=== PATIENT | male | born 1950 | race Caucasian/White ===

== ENCOUNTER 2017-06-07 15:53 | Inpatient (IN) | payer MEDICARE, OTHER ==
[~2017-06-07] VITALS: Ht 172.7 cm; Wt 74.3 kg
[2017-06-07 16:00] VITALS: BP 124/66; PULSE 85; RESP 20; TEMP 98; O2SAT 100
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
[2017-06-07 17:59] LABS: AUTOMATED NEUTROPHIL # 8.2 TH/MM3 (1.8-7.7); BASOPHIL # 0.1 TH/MM3 (0-0.2); BASOPHIL % 0.6 % (0.0-2.0); EOSINOPHIL # 0.1 TH/MM3 (0-0.4); EOSINOPHIL % 1.1 % (0.0-4.0); HEMATOCRIT 41.9 % (39.0-51.0); HEMO FLAGS DIFF FINAL; LYMPH % 14.8 % (9.0-44.0); LYMPHOCYTE # 1.6 TH/MM3 (1.0-4.8); MEAN CORPUSCULAR HEMOGLOBIN 30.5 PG (27.0-34.0); MEAN CORPUSCULAR HGB CONC 35.5 % (32.0-36.0); MONO % 8.8 % (0.0-8.0); NEUT % 74.7 % (16.0-70.0); PLATELET COUNT 296 TH/MM3 (150-450); RED BLOOD COUNT 4.88 MIL/MM3 (4.50-5.90); RED CELL DISTRIBUTION WIDTH 13.3 % (11.6-17.2); WHITE BLOOD COUNT 10.9 TH/MM3 (4.0-11.0)
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
[2017-06-07] MEDS ORDERED: CHOL5000 PO (18:55)
[2017-06-07] MEDS ORDERED: ALPR0.5T3 PO (18:55)
[2017-06-07] MEDS ORDERED: QUET1TAB7 PO (18:55)
[2017-06-07] MEDS ORDERED: GALA16CA PO (18:55)
[2017-06-07] MEDS ORDERED: ESCI20TA PO (18:55)
[2017-06-07 20:18] VITALS: BP 130/67; PULSE 80; RESP 18; TEMP 98.4; O2SAT 97
[2017-06-07 21:20] LABS: ANION GAP 9 MEQ/L (5-15)
[2017-06-07 21:23] LABS: ALKALINE PHOSPHATASE 92 U/L (45-117); ALT (GPT) 32 U/L (12-78); AST (GOT) 26 U/L (15-37); BICARBONATE 24.7 MEQ/L (21.0-32.0); BLOOD UREA NITROGEN 13 MG/DL (7-18); CHLORIDE 104 MEQ/L (98-107); GLOMERULAR FILTRATION RATE 72 ML/MIN (>89); POTASSIUM 3.4 MEQ/L (3.5-5.1); SODIUM (NA) 138 MEQ/L (136-145); TOTAL BILIRUBIN ADULT 0.6 MG/DL (0.2-1.0)
[2017-06-07 21:26] LABS: ACETAMINOPHEN LESS THAN 2.0 MCG/ML (10.0-30.0); ALCOHOL LESS THAN 3 MG/DL (0-5)
[2017-06-07 22:02] LABS: BLOOD, URINE TRACE (NEG); COMMENT (UR) CULT NOT INDICATED; CULTURE IF INDICATED CULT NOT INDICATED; GLUCOSE,URINE NEG (NEG); KETONE, URINE NEG (NEG); MUCUS URINE FEW /lpf (OCC); NITRITE,URINE NEG (NEG); PH, URINE 5.5 (5.0-8.5); URINE COLOR YELLOW (YELLW/STRAW)
[2017-06-08] MEDS ORDERED: ACETAMINOPHEN 325 MG TAB PO PRN (01:15)
[2017-06-08] MEDS ORDERED: diphenhydrAMINE HCL 50 MG/ML VIAL - HS PRN IM (01:15)
[2017-06-08] MEDS ORDERED: LORazepam 0.5 MG TAB age > 65 yrs PO PRN (01:15)
[2017-06-08] MEDS ORDERED: diphenhydrAMINE HCL 50 MG/ML VIAL IM PRN (01:15)
[2017-06-08] MEDS ORDERED: LORazepam 2 MG/ML VIAL - age > 65 yrs IM PRN (01:15)
[2017-06-08] MEDS ORDERED: ALUMINUM/MAGNESIUM/SIMETH 30 ML CUP PO PRN (01:15)
[2017-06-08] MEDS ORDERED: BENZTROPINE MESYLATE 2 MG/2 ML VIAL IM PRN (01:15)
[2017-06-08] MEDS ORDERED: diphenhydrAMINE HCL 50 MG CAP - HS PRN PO (01:15)
[2017-06-08] MEDS ORDERED: BENZTROPINE MESYLATE 1 MG TAB PO PRN (01:15)
[2017-06-08] MEDS ORDERED: MAGNESIUM HYDROXIDE SUSP 30 ML CUP PO PRN (01:15)
[2017-06-08] MEDS ORDERED: diphenhydrAMINE HCL 50 MG CAP PO PRN (01:15)
[2017-06-08 02:25] VITALS: BP 134/78; PULSE 74; RESP 18; TEMP 97; O2SAT 97
[2017-06-08] MEDS: GALANTAMINE HYDROBROMIDE 4 MG TAB PO SCH ×2 (09:00→21:14)
[2017-06-08] MEDS ORDERED: QUEtiapine FUMARATE 25 MG TAB PO SCH ×2 (09:00→21:00)
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
[2017-06-08] MEDS ORDERED: GALANTAMINE HYDROBROMIDE 4 MG TAB PO SCH (13:00)
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
[2017-06-08 17:29] VITALS: BP 124/70; PULSE 92; RESP 18; TEMP 98.7; O2SAT 98
[2017-06-08] MEDS ORDERED: POTASSIUM CHLORIDE 20 MEQ CONTROLLED RELEASE TAB PO ONE (18:15)
[2017-06-08 19:03] LABS: FREE T4 0.97 NG/DL (0.76-1.46)
[2017-06-09 05:56] VITALS: BP 136/74; PULSE 18; RESP 18; TEMP 101.6; O2SAT 96
[2017-06-09 07:43] LABS: ANION GAP 7 MEQ/L (5-15); BICARBONATE 22.9 MEQ/L (21.0-32.0); BLOOD UREA NITROGEN 16 MG/DL (7-18); CHLORIDE 105 MEQ/L (98-107); GLOMERULAR FILTRATION RATE 83 ML/MIN (>89); POTASSIUM 3.2 MEQ/L (3.5-5.1); SODIUM (NA) 135 MEQ/L (136-145)
[2017-06-09 07:46] LABS: HDL CHOLESTEROL 64.1 MG/DL (40.0-60.0); LDL CHOLESTEROL 74 MG/DL (0-99)
[2017-06-09] MEDS ORDERED: POTASSIUM CHLORIDE 20 MEQ CONTROLLED RELEASE TAB PO ONE (09:00)
[2017-06-09] MEDS ORDERED: ONDANSETRON ODT 4 MG TAB PO ONE (09:00)
[2017-06-09] MEDS ORDERED: ESCITALOPRAM OXALATE 20 MG TAB PO SCH (09:00)
[2017-06-09] MEDS ORDERED: ONDANSETRON ODT 4 MG TAB PO PRN (09:00)
[2017-06-09] MEDS: CHOLECALCIFEROL (VIT D3) 5000 UNIT CAP PO SCH (11:09)
[2017-06-09] MEDS: PANTOPRAZOLE SOD 40 MG DELAYED RELEASE TAB PO SCH (11:10)
[2017-06-09] MEDS: GALANTAMINE HYDROBROMIDE 4 MG TAB PO SCH ×2 (11:25→21:00)
--- NOTE | 2017-06-09 16:58 | PD.PSY.CON ---
Provisional Diagnosis Admission Date Jun 08, 2017 at 00:47 [place]. Dementia classified with other diseases FiO2 81, Alzheimer's disease with early- onset G 30.0 History of Present Illness Service Psychiatry Consult Requested By Psychiatry Reason for Consult 2nd opinion Primary Care Physician Unknown HPI Pt seen and discussed with staff. He was admitted yesterday under a BA due to aggression.Pt has a hx of dementia and demonstrates severe cognitive impairment. He requires staff assistance with feeding and demonstrates aphasia. Staff report that pt has been withdrawn but has not been aggressive today. He cannot provide any meaningful history. Staff are attempting to reach family for healthcare surrogate. d Past Family Social History Coded Allergies: No Known Allergies (Unverified Adverse Reaction, Unknown, 06/07/17) Past Medical History unable to provide Reported Medications Cholecalciferol (Vitamin D3) 5,000 Unit Cap, 5000 UNITS PO DAILY for Nutritional Supplement, #30 CAP 0 Refills 06/07/17 Escitalopram (Escitalopram) 20 Mg Tab, 20 MG PO DAILY, #30 TAB 0 Refills 06/07/17 Alprazolam (Alprazolam) 0.5 Mg Tab, 0.5 MG PO Q8H Y for ANXIETY, TAB 0 Refills 06/07/17 Galantamine ER (Galantamine ER) 16 Mg Caper, 16 MG PO DAILY for Alzheimer's Dementia, #30 CAP 0 Refills 06/07/17 Quetiapine (Quetiapine) 25 Mg Tab, 25 MG PO BID, #60 TAB 0 Refills 06/07/17 Current Medications Medications (Trade) Dose Ordered Sig/Zaida Route Start Time Stop Time Status Last Admin (Razadyne) 8 mg BID PO 06/08/17 09:00 Future hold 06/09/17 11:25 (Lexapro) 20 mg DAILY PO 06/08/17 09:00 Future Hold (Atarax) 50 mg Q6H PRN PO 06/08/17 01:15 Future Hold (Desyrel) 50 mg HS PRN PO 06/08/17 01:15 Future Hold (Tylenol) 650 mg Q4H PRN PO 06/08/17 01:15 06/09/17 05:17 (Milk Of Magnesia Liq) 30 ml DAILY PRN PO 06/08/17 01:15 (Mag-Al Plus Susp Liq) 30 ml Q6H PRN PO 06/08/17 01:15 06/08/17 22:50 (Vitamin D3) 5,000 units DAILY PO 06/09/17 09:00 06/09/17 11:09 (SEROquel) 50 mg BID@1200,2000 PO 06/08/17 12:00 Future Hold (Zofran Odt) 4 mg Q4H PRN PO 06/09/17 09:00 (Protonix) 40 mg DAILY PO 06/09/17 09:00 06/09/17 11:10 Family Psych History unknown Social History lives in [facility] Patient's Strengths (min. 2) Patient cooperative [facility] Physical Exam Vital Signs Vital Signs Date Time Temp Pulse Resp B/P (MAP) Pulse Ox O2 Delivery O2 Flow Rate FiO2 06/09/17 05:56 101.6 18 18 136/74 (94) 96 06/07/17 20:18 Room Air Lab Results Test 06/09/17 06:53 Blood Urea Nitrogen 16 MG/DL Creatinine 0.91 MG/DL Random Glucose 140 MG/DL Calcium Level 8.5 MG/DL Sodium Level 135 MEQ/L Potassium Level 3.2 MEQ/L Chloride Level 105 MEQ/L Carbon Dioxide Level 22.9 MEQ/L Anion Gap 7 MEQ/L Estimat Glomerular Filtration Rate 83 ML/MIN Triglycerides Level 62 MG/DL Cholesterol Level 150 MG/DL LDL Cholesterol 74 MG/DL HDL Cholesterol 64.1 MG/DL Cholesterol/HDL Ratio 2.34 RATIO Mental Status Examination Appearance: Disheveled Consciousness: Alert Orientation: Person Speech: Hesitant, Incoherent (at times) Language: Adequate Fund of Knowledge: Poor Attention and Concentration: Easily Distracted Memory: Impaired Mood: Anxious, Irritable (mildly) Affect: Other (some increased range and intensity) Thought Process & Associations: Loose associations Thought Content: Bizarre thinking Hallucination Type: None Delusion Type: None Suicidal Ideation: No Suicidal Plan: No Suicidal Intention: No Homicidal Ideation: No Homicidal Plan: No Homicidal Intention: No Insight: Poor Judgment: Poor Assessment & Plan Problem List: (1) DEMENTIA IN OTH DISEASES CLASSD ELSWHR W BEHAVIORAL DISTURB ICD Codes: F02.81 - DEMENTIA IN OTH DISEASES CLASSD ELSWHR W BEHAVIORAL DISTURB Status: Chronic (2) ALZHEIMER'S DISEASE WITH EARLY ONSET ICD Codes: G30.0 - ALZHEIMER'S DISEASE WITH EARLY ONSET Assessment & Plan I agree pt meets involuntary hospitalization criteria. Will do 2nd opinion. Estimated LOS: days Request HC Surrog/Guard Advoc?: Yes Alena Herring MD Jun 09, 2017 16:58
[2017-06-09 17:13] VITALS: BP 102/76; PULSE 65; RESP 17; TEMP 97.7; O2SAT 97
[2017-06-10 05:45] VITALS: BP 143/64; PULSE 66; RESP 18; TEMP 97.5; O2SAT 100
[2017-06-10] MEDS: PANTOPRAZOLE SOD 40 MG DELAYED RELEASE TAB PO SCH ×2 (09:00→11:14)
[2017-06-10 09:55] LABS: HEMOGLOBIN A1b 1.4 %; HEMOGLOBIN Ao 85.8 %; HEMOGLOBIN LA1C 2.3 %; HEMOGLOBIN P3 3.6 %
[2017-06-10 09:58] LABS: AUTOMATED NEUTROPHIL # 6.9 TH/MM3 (1.8-7.7); BASOPHIL % 0.4 % (0.0-2.0); EOSINOPHIL # 0.1 TH/MM3 (0-0.4); EOSINOPHIL % 0.8 % (0.0-4.0); HEMATOCRIT 43.1 % (39.0-51.0); HEMO FLAGS DIFF FINAL; LYMPH % 18.8 % (9.0-44.0); LYMPHOCYTE # 1.9 TH/MM3 (1.0-4.8); MEAN CELL VOLUME 86.4 FL (80.0-100.0); MEAN CORPUSCULAR HEMOGLOBIN 30.1 PG (27.0-34.0); MEAN CORPUSCULAR HGB CONC 34.9 % (32.0-36.0); PLATELET COUNT 293 TH/MM3 (150-450); RED BLOOD COUNT 4.99 MIL/MM3 (4.50-5.90); RED CELL DISTRIBUTION WIDTH 13.7 % (11.6-17.2); WHITE BLOOD COUNT 10.1 TH/MM3 (4.0-11.0)
[2017-06-10 10:18] LABS: BICARBONATE 25.9 MEQ/L (21.0-32.0); POTASSIUM 3.8 MEQ/L (3.5-5.1)
[2017-06-10] MEDS: CHOLECALCIFEROL (VIT D3) 5000 UNIT CAP PO SCH (11:13)
[2017-06-10] MEDS: GALANTAMINE HYDROBROMIDE 4 MG TAB PO SCH ×2 (11:14→20:46)
--- NOTE | 2017-06-10 13:36 | HHI.PYPN ---
Subjective Chief Complaint: patient demented with increased aggression in residential Remarks Pt seen and discussed with staff. Pt has been cooperative with care but gets agitated with redirection. As afternoon progressed he became increasingly anxious and agitated with staff and peers, making obscene gestures. He has not had psychiatric medications because no HCS has been located. He was given lorazepam 0.5mg PO x1 to maintain safety. Pt tolerated medicine and calmed. Mental Status Examination Appearance: Disheveled Consciousness: Alert Orientation: Person Speech: Incoherent (at times) Language: Adequate Fund of Knowledge: Poor Attention and Concentration: Easily Distracted Memory: Impaired Mood: Anxious, Irritable (mildly) Affect: Other (some increased range and intensity) Thought Process & Associations: Loose associations Thought Content: Bizarre thinking Hallucination Type: None Delusion Type: None Suicidal Ideation: No Suicidal Plan: No Suicidal Intention: No Homicidal Ideation: No Homicidal Plan: No Homicidal Intention: No Insight: Poor Judgment: Poor Results Labs Test 06/10/17 09:40 06/10/17 09:41 Blood Urea Nitrogen 14 MG/DL Creatinine 0.88 MG/DL Random Glucose 111 MG/DL Calcium Level 8.7 MG/DL Sodium Level 137 MEQ/L Potassium Level 3.8 MEQ/L Chloride Level 105 MEQ/L Carbon Dioxide Level 25.9 MEQ/L Anion Gap 6 MEQ/L Estimat Glomerular Filtration Rate 86 ML/MIN White Blood Count 10.1 TH/MM3 Red Blood Count 4.99 MIL/MM3 Hemoglobin 15.0 GM/DL Hematocrit 43.1 % Mean Corpuscular Volume 86.4 FL Mean Corpuscular Hemoglobin 30.1 PG Mean Corpuscular Hemoglobin Concent 34.9 % Red Cell Distribution Width 13.7 % Platelet Count 293 TH/MM3 Mean Platelet Volume 7.9 FL Neutrophils (%) (Auto) 68.0 % Lymphocytes (%) (Auto) 18.8 % Monocytes (%) (Auto) 12.0 % Eosinophils (%) (Auto) 0.8 % Basophils (%) (Auto) 0.4 % Neutrophils # (Auto) 6.9 TH/MM3 Lymphocytes # (Auto) 1.9 TH/MM3 Monocytes # (Auto) 1.2 TH/MM3 Eosinophils # (Auto) 0.1 TH/MM3 Basophils # (Auto) 0.0 TH/MM3 CBC Comment DIFF FINAL Differential Comment Vitals/IOs Vital Signs Date Time Temp Pulse Resp B/P (MAP) Pulse Ox O2 Delivery O2 Flow Rate FiO2 06/10/17 05:45 97.5 66 18 143/64 (90) 100 06/07/17 20:18 Room Air Assessment & Plan Problem List: (1) DEMENTIA IN OTH DISEASES CLASSD ELSWHR W BEHAVIORAL DISTURB ICD Codes: F02.81 - DEMENTIA IN OTH DISEASES CLASSD ELSWHR W BEHAVIORAL DISTURB Status: Chronic (2) ALZHEIMER'S DISEASE WITH EARLY ONSET ICD Codes: G30.0 - ALZHEIMER'S DISEASE WITH EARLY ONSET Assessment & Plan Continue current tx plan. Continue to try and locate HCS. Estimated LOS: days Justification for Cont. Inpt. impairments in safety Request HC Surrog/Guard Advoc?: Yes Alena Herring MD Jun 10, 2017 13:36
[2017-06-10] MEDS ORDERED: LORazepam 0.5 MG TAB PO ONE (14:45)
[2017-06-10 17:26] VITALS: BP 139/71; PULSE 72; RESP 17; TEMP 97.1; O2SAT 99
[2017-06-11 06:25] VITALS: BP 123/81; PULSE 78; RESP 17; TEMP 98.5; O2SAT 97
[2017-06-11] MEDS: CHOLECALCIFEROL (VIT D3) 5000 UNIT CAP PO SCH (09:00)
[2017-06-11] MEDS: GALANTAMINE HYDROBROMIDE 4 MG TAB PO SCH ×2 (09:00→20:42)
[2017-06-11] MEDS: PANTOPRAZOLE SOD 40 MG DELAYED RELEASE TAB PO SCH (09:00)
--- NOTE | 2017-06-11 10:05 | PD.TTN ---
Patient Problems 1. Discharge planning 2. Medication compliance 3. Knowledge deficit 4. Lack of coping skills Progress Toward Goals Provider Present: Dr. Mala Diaz Provider Input: Dr. Diaz's treatment team met to discuss patient's treatment plan, discharge, and medication. Patient continues to present confused, internally stimulated, continue treatment. Nurse(s) Input: Patient's nurse Danelle reports patient is medication compliant, calm, no behaviorial problem on unit. Psychiatric Counselors Present: MICH MosquedaEneida Psych Therapist Input: Patient seen in the dayroom eating his breakfast. Patient presented with internal stimulation along with visual hallucinations. Patient denied suicidal and homicidal ideation. Patient presents with psychoagitation movements. Group Spec/RT/OT/RIGGINS Present: Jeremie Gonzalez OT Group Spec/RT/OT/RIGGINS Input: Patient does not attend groups [facility]ana Spencer [facility] Jun 11, 2017 10:05
--- NOTE | 2017-06-11 13:52 | HHI.PYPN ---
Subjective Chief Complaint: patient demented with increased aggression in snf Remarks Patient seen in his room with medical student Geovanna, patient laying quietly in his bed. He is alert though continues disorganized. He recognizes himself. But is diffusely confused as to place time and situation. However it appears she is been no significant behavioral problems. He has not been on a psychotropics due to lack of person to give consent. For now continue treatment Review of Systems Except as stated in HPI: all other systems reviewed are Neg Mental Status Examination Appearance: Disheveled Consciousness: Alert Orientation: Person Speech: Incoherent (at times) Language: Adequate Fund of Knowledge: Poor Attention and Concentration: Easily Distracted Memory: Impaired Mood: Anxious, Irritable (mildly) Affect: Other (some increased range and intensity) Thought Process & Associations: Loose associations Thought Content: Bizarre thinking Hallucination Type: None Delusion Type: None Suicidal Ideation: No Suicidal Plan: No Suicidal Intention: No Homicidal Ideation: No Homicidal Plan: No Homicidal Intention: No Insight: Poor Judgment: Poor Results Vitals/IOs Vital Signs Date Time Temp Pulse Resp B/P (MAP) Pulse Ox O2 Delivery O2 Flow Rate FiO2 06/11/17 06:25 98.5 78 17 123/81 (95) 97 06/07/17 20:18 Room Air Intake and Output 06/11/17 06/11/17 06/12/17 08:00 16:00 00:00 Intake Total 240 ml 240 ml Balance 240 ml 240 ml Assessment & Plan Problem List: (1) DEMENTIA IN OTH DISEASES CLASSD ELSWHR W BEHAVIORAL DISTURB ICD Codes: F02.81 - DEMENTIA IN OTH DISEASES CLASSD ELSWHR W BEHAVIORAL DISTURB Status: Chronic (2) ALZHEIMER'S DISEASE WITH EARLY ONSET ICD Codes: G30.0 - ALZHEIMER'S DISEASE WITH EARLY ONSET Assessment & Plan Estimated LOS: days patient continues confused and demented, though there but no significant behavioral problems. Recently have no person to give consent for medications. Justification for Cont. Inpt. At this time patient will decompensate with placed in a lower level of care Discharge Planning Consider discharge back to his prior [facility] they will accept him once he is stabilized Request HC Surrog/Guard Advoc?: Yes Nawaf Diaz MD Jun 11, 2017 13:52
[2017-06-11 18:07] VITALS: BP 155/82; PULSE 72; RESP 18; TEMP 98.1; O2SAT 98
[2017-06-12 05:36] VITALS: BP 139/74; PULSE 67; RESP 17; TEMP 98.3; O2SAT 97
[2017-06-12] MEDS: PANTOPRAZOLE SOD 40 MG DELAYED RELEASE TAB PO SCH (08:35)
[2017-06-12] MEDS: CHOLECALCIFEROL (VIT D3) 5000 UNIT CAP PO SCH (08:35)
[2017-06-12] MEDS: GALANTAMINE HYDROBROMIDE 4 MG TAB PO SCH ×2 (08:35→21:39)
--- NOTE | 2017-06-12 11:22 | HHI.PYPN ---
Subjective Chief Complaint: patient demented with increased aggression in retirement Remarks Patient seen in his room with nurse Paulino and medical student Geovanna, chart review. Patient compliant medications. Patient continues no behavioral problems, is laying quietly in his bed at this time. Continues markedly confused and disoriented. Only oriented to self. Patient scheduled for [facility] tomorrow. Review of Systems Except as stated in HPI: all other systems reviewed are Neg Mental Status Examination Appearance: Disheveled Consciousness: Alert Orientation: Person Speech: Incoherent (at times) Language: Adequate Fund of Knowledge: Poor Attention and Concentration: Easily Distracted Memory: Impaired Mood: Anxious, Irritable (mildly) Affect: Other (some increased range and intensity) Thought Process & Associations: Loose associations Thought Content: Bizarre thinking Hallucination Type: None Delusion Type: None Suicidal Ideation: No Suicidal Plan: No Suicidal Intention: No Homicidal Ideation: No Homicidal Plan: No Homicidal Intention: No Insight: Poor Judgment: Poor Results Vitals/IOs Vital Signs Date Time Temp Pulse Resp B/P (MAP) Pulse Ox O2 Delivery O2 Flow Rate FiO2 06/12/17 05:36 98.3 67 17 139/74 (95) 97 Intake and Output 06/12/17 06/12/17 06/13/17 08:00 16:00 00:00 Intake Total 240 ml Balance 240 ml Assessment & Plan Problem List: (1) DEMENTIA IN OTH DISEASES CLASSD ELSWHR W BEHAVIORAL DISTURB ICD Codes: F02.81 - DEMENTIA IN OTH DISEASES CLASSD ELSWHR W BEHAVIORAL DISTURB Status: Chronic (2) ALZHEIMER'S DISEASE WITH EARLY ONSET ICD Codes: G30.0 - ALZHEIMER'S DISEASE WITH EARLY ONSET Assessment & Plan Estimated LOS: days patient continues confused demented, though no behavioral problems. Patient scheduled for [facility] tomorrow Justification for Cont. Inpt. This time patient will decompensate in place to the lower level of care Discharge Planning Patient scheduled for [facility] tomorrow may become problematic to past behaviors Request HC Surrog/Guard Advoc?: Yes Nawaf Diaz MD Jun 12, 2017 11:22
--- NOTE | 2017-06-12 12:45 | PD.TTN ---
Patient Problems 1. Discharge planning 2. Medication compliance 3. Knowledge deficit 4. Lack of coping skills Progress Toward Goals Provider Present: Dr. Mala Diaz Provider Input: Dr. Diaz's treatment team met to discuss patient's treatment plan, discharge, and medication. Patient continues to present confused, internally stimulated, continue treatment. 06/12/17 Patient presents alert to person only. Patient is confused and disoriented. Continued with treatment Nurse(s) Input: Patient's nurse Sue reports patient is disorganized and has trouble remembering names. Patient is childlke and has been isolating himself in his room. Psychiatric Counselors Present: Susana Spencer [facility] Input: Patient seen in the dayroom eating his breakfast. Patient presented with internal stimulation along with visual hallucinations. Patient denied suicidal and homicidal ideation. Patient presents with psychoagitation movements. 06/12/17 Patient seen in his room. Patient presents disoriented and confused, alert to person only. Patient is pleasant, calm, childlike, no behavioral problem, seclusive. Patient presents internally stimulated. Patient's affect is congruent to mood. Long and short term memory appear to be affected. Patient denies suicidal and homicidal ideation Due to patient aggression towards roommate at nursing facility patient will not be able to return. Placement will need to be looked for once patient is at his base line. Group Spec/RT/OT/RIGGINS Present: Jeremie Gonzalez OT, VAISHNAVI Tapia Group Spec/RT/OT/RIGGINS Input: Patient does not attend groups 06/12/17 Patient did not attend group. Susana Spencer [facility] Jun 12, 2017 12:45
[2017-06-12 18:00] VITALS: BP 154/70; PULSE 75; RESP 18; TEMP 98.5; O2SAT 97
[2017-06-13] MEDS: CHOLECALCIFEROL (VIT D3) 5000 UNIT CAP PO SCH (08:18)
[2017-06-13] MEDS: GALANTAMINE HYDROBROMIDE 4 MG TAB PO SCH ×2 (08:18→20:24)
[2017-06-13] MEDS: PANTOPRAZOLE SOD 40 MG DELAYED RELEASE TAB PO SCH (08:18)
--- NOTE | 2017-06-13 09:19 | HHI.PYPN ---
Subjective Chief Complaint: patient demented with increased aggression in jail Remarks Patient seen in day room with nurse Sue, patient clean and neat dressed in T- shirt and shorts. He is scheduled for [place] [facility] today. We are awaiting appointment of a guardian advocate strongly initiate scheduled psychotropic medications. Patient showing no significant behavioral problems here on the unit. Remains diffusely confused and disorganized Review of Systems Except as stated in HPI: all other systems reviewed are Neg Mental Status Examination Appearance: Disheveled Consciousness: Alert Orientation: Person Speech: Incoherent (at times) Language: Adequate Fund of Knowledge: Poor Attention and Concentration: Easily Distracted Memory: Impaired Mood: Anxious, Irritable (mildly) Affect: Other (some increased range and intensity) Thought Process & Associations: Loose associations Thought Content: Bizarre thinking Hallucination Type: None Delusion Type: None Suicidal Ideation: No Suicidal Plan: No Suicidal Intention: No Homicidal Ideation: No Homicidal Plan: No Homicidal Intention: No Insight: Poor Judgment: Poor Results Vitals/IOs Vital Signs Date Time Temp Pulse Resp B/P (MAP) Pulse Ox O2 Delivery O2 Flow Rate FiO2 06/12/17 18:00 98.5 75 18 154/70 (98) 97 Assessment & Plan Problem List: (1) DEMENTIA IN OTH DISEASES CLASSD ELSWHR W BEHAVIORAL DISTURB ICD Codes: F02.81 - DEMENTIA IN OTH DISEASES CLASSD ELSWHR W BEHAVIORAL DISTURB Status: Chronic (2) ALZHEIMER'S DISEASE WITH EARLY ONSET ICD Codes: G30.0 - ALZHEIMER'S DISEASE WITH EARLY ONSET Assessment & Plan Estimated LOS: days patient continues confused and demented, though no behavioral problems at this time. Is scheduled for [facility] today Justification for Cont. Inpt. At this time patient will decompensate the placed a lower level of care Discharge Planning Possible return to his prior placement though we need further medication stabilization once approved by a guardian advocate Request HC Surrog/Guard Advoc?: Yes Nawaf Diaz MD Jun 13, 2017 09:19
[2017-06-13 18:17] VITALS: BP 109/57; PULSE 75; RESP 18; TEMP 98.3; O2SAT 93
[2017-06-14 06:00] VITALS: BP 128/70; PULSE 64; RESP 18; TEMP 97.4; O2SAT 97
[2017-06-14] MEDS: ESCITALOPRAM OXALATE 20 MG TAB PO SCH ×2 (09:00→09:25)
[2017-06-14] MEDS: PANTOPRAZOLE SOD 40 MG DELAYED RELEASE TAB PO SCH (09:24)
[2017-06-14] MEDS: GALANTAMINE HYDROBROMIDE 4 MG TAB PO SCH ×2 (09:25→20:38)
[2017-06-14] MEDS: QUEtiapine FUMARATE 25 MG TAB PO SCH ×3 (12:00→20:38)
[2017-06-14] MEDS: CHOLECALCIFEROL (VIT D3) 5000 UNIT CAP PO SCH (12:24)
--- NOTE | 2017-06-14 13:36 | HHI.PYPN ---
Subjective Chief Complaint: patient demented with increased aggression in [facility] Remarks Patient seen in his room with floor staff, patient continues diffusely confused and disoriented, chart reviewed, patient compliant medications. Is a tendency with them approach irritability. This may reflect the behaviors in the [place] [facility] that led to this hospitalization. For now continue treatment Review of Systems Except as stated in HPI: all other systems reviewed are Neg Mental Status Examination Appearance: Disheveled Consciousness: Alert Orientation: Person Speech: Incoherent (at times) Language: Adequate Fund of Knowledge: Poor Attention and Concentration: Easily Distracted Memory: Impaired Mood: Anxious, Irritable (mildly) Affect: Other (some increased range and intensity) Thought Process & Associations: Loose associations Thought Content: Bizarre thinking Hallucination Type: None Delusion Type: None Suicidal Ideation: No Suicidal Plan: No Suicidal Intention: No Homicidal Ideation: No Homicidal Plan: No Homicidal Intention: No Insight: Poor Judgment: Poor Results Vitals/IOs Vital Signs Date Time Temp Pulse Resp B/P (MAP) Pulse Ox O2 Delivery O2 Flow Rate FiO2 06/14/17 06:00 97.4 64 18 128/70 (89) 97 Assessment & Plan Problem List: (1) DEMENTIA IN OTH DISEASES CLASSD ELSWHR W BEHAVIORAL DISTURB ICD Codes: F02.81 - DEMENTIA IN OTH DISEASES CLASSD ELSWHR W BEHAVIORAL DISTURB Status: Chronic (2) ALZHEIMER'S DISEASE WITH EARLY ONSET ICD Codes: G30.0 - ALZHEIMER'S DISEASE WITH EARLY ONSET Assessment & Plan Estimated LOS: days patient remains confused and demented, with this time no behavior problems. For now continue treatment Justification for Cont. Inpt. At this time patient will decompensate the placed in a lower level of care Discharge Planning Placement remain problematic continue to work with counselor's Request HC Surrog/Guard Advoc?: Yes Nawaf Diaz MD Jun 14, 2017 13:36
[2017-06-14 16:47] VITALS: BP 139/70; PULSE 80; RESP 18; TEMP 98.2; O2SAT 99
[2017-06-15 05:42] VITALS: BP 152/77; PULSE 69; RESP 18; TEMP 98.1; O2SAT 98
[2017-06-15] MEDS: CHOLECALCIFEROL (VIT D3) 5000 UNIT CAP PO SCH (09:18)
[2017-06-15] MEDS: PANTOPRAZOLE SOD 40 MG DELAYED RELEASE TAB PO SCH (09:18)
[2017-06-15] MEDS: ESCITALOPRAM OXALATE 20 MG TAB PO SCH (09:18)
[2017-06-15] MEDS: GALANTAMINE HYDROBROMIDE 4 MG TAB PO SCH ×2 (09:18→22:00)
[2017-06-15] MEDS: hydrOXYzine HCL 50 MG TAB PO PRN (10:15)
--- NOTE | 2017-06-15 10:56 | HHI.PYPN ---
Subjective Chief Complaint: patient demented with increased aggression in assisted Remarks Patient seen on unit floor staff, patient somewhat agitated irritable quite profane using the "F" word quite frequently also being somewhat aggressive with fist waving toward staff. Patient just now starting his schedule medications. Will also add Ativan 0.5 mg by mouth every 6 when necessary agitation and anxiety Review of Systems Except as stated in HPI: all other systems reviewed are Neg Mental Status Examination Appearance: Disheveled Consciousness: Alert Orientation: Person Speech: Incoherent (at times) Language: Adequate Fund of Knowledge: Poor Attention and Concentration: Easily Distracted Memory: Impaired Mood: Anxious, Irritable (mildly) Affect: Other (some increased range and intensity) Thought Process & Associations: Loose associations Thought Content: Bizarre thinking Hallucination Type: None Delusion Type: None Suicidal Ideation: No Suicidal Plan: No Suicidal Intention: No Homicidal Ideation: No Homicidal Plan: No Homicidal Intention: No Insight: Poor Judgment: Poor Results Vitals/IOs Vital Signs Date Time Temp Pulse Resp B/P (MAP) Pulse Ox O2 Delivery O2 Flow Rate FiO2 06/15/17 05:42 98.1 69 18 152/77 (102) 98 Assessment & Plan Problem List: (1) DEMENTIA IN OTH DISEASES CLASSD ELSWHR W BEHAVIORAL DISTURB ICD Codes: F02.81 - DEMENTIA IN OTH DISEASES CLASSD ELSWHR W BEHAVIORAL DISTURB Status: Chronic (2) ALZHEIMER'S DISEASE WITH EARLY ONSET ICD Codes: G30.0 - ALZHEIMER'S DISEASE WITH EARLY ONSET Assessment & Plan Estimated LOS: days patient continues confused disoriented though some increased aggressive behaviors is just now started his schedule medications will also add Ativan to the oral when necessary medications Justification for Cont. Inpt. At this time patient will decompensate then placed in a lower level of care Discharge Planning Placement may become somewhat problematic Request HC Surrog/Guard Advoc?: Yes Nawaf Diaz MD Jun 15, 2017 10:56
[2017-06-15] MEDS: QUEtiapine FUMARATE 25 MG TAB PO SCH ×2 (12:00→20:00)
[2017-06-15 18:00] VITALS: BP 134/72; PULSE 88; RESP 18; TEMP 98.4; O2SAT 98
[2017-06-16 06:22] VITALS: BP 166/77; PULSE 65; RESP 17; TEMP 98.2; O2SAT 97
[2017-06-16] MEDS: CHOLECALCIFEROL (VIT D3) 5000 UNIT CAP PO SCH (09:23)
[2017-06-16] MEDS: GALANTAMINE HYDROBROMIDE 4 MG TAB PO SCH ×2 (09:23→20:19)
[2017-06-16] MEDS: PANTOPRAZOLE SOD 40 MG DELAYED RELEASE TAB PO SCH (09:23)
[2017-06-16] MEDS: ESCITALOPRAM OXALATE 20 MG TAB PO SCH (09:23)
[2017-06-16] MEDS: QUEtiapine FUMARATE 25 MG TAB PO SCH ×2 (12:00→20:19)
--- NOTE | 2017-06-16 12:43 | HHI.PYPN ---
Subjective Chief Complaint: patient demented with increased aggression in halfway Remarks Patient was seen and case discussed with nursing. Per nursing he was sedated this morning but is awake and alert for my interview. Cognitive dysfunction is evident. Patient is stuttering and appears anxious. Alert and oriented 1. Somewhat guarded. Describes his mood is "doing good." Denies suicidal homicidal ideations intent or plan. Denies any psychosis. InSight remains poor Mental Status Examination Appearance: Disheveled Consciousness: Alert Orientation: Person Speech: Incoherent (at times), Speech impediment Language: Adequate Fund of Knowledge: Poor Attention and Concentration: Easily Distracted Memory: Impaired Mood: Anxious, Irritable (mildly) Affect: Other (some increased range and intensity) Thought Process & Associations: Loose associations Thought Content: Bizarre thinking Hallucination Type: None Delusion Type: None Suicidal Ideation: No Suicidal Plan: No Suicidal Intention: No Homicidal Ideation: No Homicidal Plan: No Homicidal Intention: No Insight: Poor Judgment: Poor Results Vitals/IOs Vital Signs Date Time Temp Pulse Resp B/P (MAP) Pulse Ox O2 Delivery O2 Flow Rate FiO2 06/16/17 06:22 98.2 65 17 166/77 (106) 97 Intake and Output 06/16/17 06/16/17 06/17/17 08:00 16:00 00:00 Intake Total 240 ml Balance 240 ml Assessment & Plan Problem List: (1) DEMENTIA IN OTH DISEASES CLASSD ELSWHR W BEHAVIORAL DISTURB ICD Codes: F02.81 - DEMENTIA IN OTH DISEASES CLASSD ELSWHR W BEHAVIORAL DISTURB Status: Chronic (2) ALZHEIMER'S DISEASE WITH EARLY ONSET ICD Codes: G30.0 - ALZHEIMER'S DISEASE WITH EARLY ONSET Assessment & Plan Continue current treatment plan Justification for Cont. Inpt. Patient would decompensate in a less restrictive setting Request HC Surrog/Guard Advoc?: Yes Cholo Samaniego DO Jun 16, 2017 12:43
[2017-06-16 18:00] VITALS: BP 142/82; PULSE 78; RESP 18; TEMP 98.5; O2SAT 92
[2017-06-16] MEDS: traZODone HCL 50 MG TAB PO PRN (20:19)
[2017-06-17 06:00] VITALS: BP 152/58; PULSE 63; RESP 20; TEMP 97
[2017-06-17] MEDS: CHOLECALCIFEROL (VIT D3) 5000 UNIT CAP PO SCH (08:14)
[2017-06-17] MEDS: hydrOXYzine HCL 50 MG TAB PO PRN (08:15)
[2017-06-17] MEDS: PANTOPRAZOLE SOD 40 MG DELAYED RELEASE TAB PO SCH (08:15)
[2017-06-17] MEDS: GALANTAMINE HYDROBROMIDE 4 MG TAB PO SCH ×2 (08:15→20:53)
[2017-06-17] MEDS: ESCITALOPRAM OXALATE 20 MG TAB PO SCH (08:15)
[2017-06-17] MEDS: LORazepam 0.5 MG TAB PO PRN (09:14)
[2017-06-17] MEDS ORDERED: diphenhydrAMINE HCL 50 MG/ML VIAL IM STA (09:31)
[2017-06-17] MEDS ORDERED: HALOPERIDOL LACTATE 5 MG/ML AMP IM STA (09:31)
[2017-06-17] MEDS: QUEtiapine FUMARATE 25 MG TAB PO SCH ×2 (11:52→20:55)
--- NOTE | 2017-06-17 13:05 | HHI.PYPN ---
Subjective Chief Complaint: patient demented with increased aggression in group home Remarks Patient was seen and case discussed with nursing. Patient was agitated this morning calling other patients various slurs. He received an ETO from the on- call doctor. During the interview he is guarded, confused and refuses to specify what happened. He says "I am now good." Mental Status Examination Appearance: Disheveled Consciousness: Alert Orientation: Person Speech: Incoherent (at times), Speech impediment Language: Adequate Fund of Knowledge: Poor Attention and Concentration: Easily Distracted Memory: Impaired Mood: Anxious, Irritable (mildly) Affect: Irritable, Anxious Thought Process & Associations: Loose associations Thought Content: Bizarre thinking Hallucination Type: None Delusion Type: None Suicidal Ideation: No Suicidal Plan: No Suicidal Intention: No Homicidal Ideation: No Homicidal Plan: No Homicidal Intention: No Insight: Poor Judgment: Poor Results Vitals/IOs Vital Signs Date Time Temp Pulse Resp B/P (MAP) Pulse Ox O2 Delivery O2 Flow Rate FiO2 06/17/17 06:00 97.0 63 20 152/58 (89) 06/16/17 18:00 92 Assessment & Plan Problem List: (1) DEMENTIA IN OTH DISEASES CLASSD ELSWHR W BEHAVIORAL DISTURB ICD Codes: F02.81 - DEMENTIA IN OTH DISEASES CLASSD ELSWHR W BEHAVIORAL DISTURB Status: Chronic (2) ALZHEIMER'S DISEASE WITH EARLY ONSET ICD Codes: G30.0 - ALZHEIMER'S DISEASE WITH EARLY ONSET Assessment & Plan Continue current treatment plan Justification for Cont. Inpt. Patient will decompensate in a less restrictive setting Request HC Surrog/Guard Advoc?: Yes Cholo Samaniego DO Jun 17, 2017 13:05
[2017-06-17 18:27] VITALS: BP 109/71; PULSE 79; RESP 18; TEMP 98.5; O2SAT 98
--- NOTE | 2017-06-17 21:04 | EKG ---
Date Performed: 06/17/2017 Time Performed: 14:28:29 PTAGE: 67 years EKG: Sinus rhythm NORMAL ECG PREVIOUS TRACING : 06/17/2017 12.56 No significant change from previous tracing noted. DOCTOR: Aj Mckeon Interpretating Date/Time 06/17/2017 21:03:33
--- NOTE | 2017-06-17 21:10 | EKG ---
Date Performed: 06/17/2017 Time Performed: 12:56:02 PTAGE: 67 years EKG: Sinus rhythm NONSPECIFIC T-WAVE ABNORMALITY BORDERLINE ECG NO PREVIOUS TRACING DOCTOR: Aj Mckeon Interpretating Date/Time 06/19/2017 06:50:50
[2017-06-18 05:34] VITALS: BP 123/58; PULSE 63; RESP 16; TEMP 96.9; O2SAT 100
[2017-06-18] MEDS: CHOLECALCIFEROL (VIT D3) 5000 UNIT CAP PO SCH (08:36)
[2017-06-18] MEDS: PANTOPRAZOLE SOD 40 MG DELAYED RELEASE TAB PO SCH (08:36)
[2017-06-18] MEDS: ESCITALOPRAM OXALATE 20 MG TAB PO SCH (08:36)
[2017-06-18] MEDS: GALANTAMINE HYDROBROMIDE 4 MG TAB PO SCH ×2 (08:36→21:24)
--- NOTE | 2017-06-18 09:39 | PD.TTN ---
Patient Problems 1. Discharge planning 2. Medication compliance 3. Knowledge deficit 4. Lack of coping skills Progress Toward Goals Provider Present: Dr. Mala Diaz Provider Input: Dr. Diaz's treatment team met to discuss patient's treatment plan, discharge, and medication. Patient continues to present confused, internally stimulated, continue treatment. 06/12/17 Patient presents alert to person only. Patient is confused and disoriented. Continued with treatment 06/18/17 Patient recieved an ETO the day prior due to aggressive behavioral and inappropriately interacting with peers on the unit. Patient became agitated but does not to have calmed down. Patient still meets criteria at current time. Nurse(s) Input: Patient's nurse Danelle reports patient is medication compliant, calm, no behaviorial problem on unit. 06/18/17 Patient had become agitated and aggressive on unit on days prior. Continues to have lability. Patient is somewhat seclusive to bedroom but is seen in dayroom. Patient is compliant with medications and denies side effects. Patient is sleeping well. Psychiatric Counselors Present: Andrea Centeno [facility], Susana Spencer [facility] , Roula Phan [facility] Psych Therapist Input: Patient seen in the dayroom eating his breakfast. Patient presented with internal stimulation along with visual hallucinations. Patient denied suicidal and homicidal ideation. Patient presents with psychoagitation movements. 06/18/17 Patient continues to be internally stimulated and slightly interactive on the unit. Patient is cooperative and calm but did not become aggitated and aggressive over the weekend. Currently patient is denying suicidal ideations and homicidal ideations. Patient will return to [place] once Dr. Diaz deems patient appropriately. Group Spec/RT/OT/RIGGINS Present: Jeremie Gonzalez OT, VAISHNAVI Tapia Group Spec/RT/OT/RIGGINS Input: Patient does not attend groups 06/12/17 Patient did not attend group. 06/18/17 Patient does not attend group activites. [facility] Jun 18, 2017 09:39
--- NOTE | 2017-06-18 11:10 | HHI.PYPN ---
Subjective Chief Complaint: patient demented with increased aggression in [facility] Remarks Patient seen in day room with nurse Limon, chart review. It appears yesterday patient became somewhat upset and a she is using racial slurs, day and ETO. Today he is calm pleasantly confused though continues oriented basically to name only. Patient compliant medications. For now continue treatment will increase scheduled Seroquel to 50 mg 10 AM, 2 PM, 8 PM it appears patient does have placement at [place] when stabilized Review of Systems Except as stated in HPI: all other systems reviewed are Neg Mental Status Examination Appearance: Disheveled Consciousness: Alert Orientation: Person Speech: Incoherent (at times), Speech impediment Language: Adequate Fund of Knowledge: Poor Attention and Concentration: Easily Distracted Memory: Impaired Mood: Anxious, Irritable (mildly) Affect: Irritable, Anxious Thought Process & Associations: Loose associations Thought Content: Bizarre thinking Hallucination Type: None Delusion Type: None Suicidal Ideation: No Suicidal Plan: No Suicidal Intention: No Homicidal Ideation: No Homicidal Plan: No Homicidal Intention: No Insight: Poor Judgment: Poor Results Vitals/IOs Vital Signs Date Time Temp Pulse Resp B/P (MAP) Pulse Ox O2 Delivery O2 Flow Rate FiO2 06/18/17 05:34 96.9 63 16 123/58 (79) 100 Assessment & Plan Problem List: (1) DEMENTIA IN OTH DISEASES CLASSD ELSWHR W BEHAVIORAL DISTURB ICD Codes: F02.81 - DEMENTIA IN OTH DISEASES CLASSD ELSWHR W BEHAVIORAL DISTURB Status: Chronic (2) ALZHEIMER'S DISEASE WITH EARLY ONSET ICD Codes: G30.0 - ALZHEIMER'S DISEASE WITH EARLY ONSET Assessment & Plan Estimated LOS: days patient continues confused disoriented, was somewhat labile irritable with racial slurs yesterday see medication adjustment above Justification for Cont. Inpt. At this time patient will decompensate if placed in a lower level of care Discharge Planning Probable return to [place] once stabilized Request HC Surrog/Guard Advoc?: Yes Nawaf Diaz MD Jun 18, 2017 11:10
[2017-06-18] MEDS: QUEtiapine FUMARATE 25 MG TAB PO SCH ×2 (13:34→21:24)
[2017-06-18] MEDS: hydrOXYzine HCL 50 MG TAB PO PRN (13:36)
[2017-06-18 15:55] VITALS: BP 134/64; PULSE 88; RESP 18; TEMP 98.3; O2SAT 99
[2017-06-18] MEDS: LORazepam 0.5 MG TAB PO PRN (18:29)
[2017-06-19] MEDS: ESCITALOPRAM OXALATE 20 MG TAB PO SCH (08:20)
[2017-06-19] MEDS: PANTOPRAZOLE SOD 40 MG DELAYED RELEASE TAB PO SCH (08:20)
[2017-06-19] MEDS: GALANTAMINE HYDROBROMIDE 4 MG TAB PO SCH ×2 (08:20→20:52)
[2017-06-19] MEDS: CHOLECALCIFEROL (VIT D3) 5000 UNIT CAP PO SCH (08:20)
[2017-06-19] MEDS: QUEtiapine FUMARATE 25 MG TAB PO SCH ×3 (08:44→20:52)
--- NOTE | 2017-06-19 12:00 | HHI.PYPN ---
Subjective Chief Complaint: patient demented with increased aggression in long term Remarks Patient seen in the day room with medical student Geovanna, patient continues diffusely confused at times looking somewhat perplexed. It appears she had some behavioral dyscontrol last night needing to ETO use. At the present time his calm cooperative. I have just adjusted the Seroquel yesterday will monitor for another 1-2 days Review of Systems Except as stated in HPI: all other systems reviewed are Neg Mental Status Examination Appearance: Disheveled Consciousness: Alert Orientation: Person Speech: Incoherent (at times), Speech impediment Language: Adequate Fund of Knowledge: Poor Attention and Concentration: Easily Distracted Memory: Impaired Mood: Anxious, Irritable (mildly) Affect: Irritable, Anxious Thought Process & Associations: Loose associations Thought Content: Bizarre thinking Hallucination Type: None Delusion Type: None Suicidal Ideation: No Suicidal Plan: No Suicidal Intention: No Homicidal Ideation: No Homicidal Plan: No Homicidal Intention: No Insight: Poor Judgment: Poor Results Vitals/IOs Vital Signs Date Time Temp Pulse Resp B/P (MAP) Pulse Ox O2 Delivery O2 Flow Rate FiO2 06/18/17 15:55 98.3 88 18 134/64 (87) 99 Assessment & Plan Problem List: (1) DEMENTIA IN OTH DISEASES CLASSD ELSWHR W BEHAVIORAL DISTURB ICD Codes: F02.81 - DEMENTIA IN OTH DISEASES CLASSD ELSWHR W BEHAVIORAL DISTURB Status: Chronic (2) ALZHEIMER'S DISEASE WITH EARLY ONSET ICD Codes: G30.0 - ALZHEIMER'S DISEASE WITH EARLY ONSET Assessment & Plan Estimated LOS: days patient continues confused disoriented, with some behavior problems yesterday evening. For now continue observation Justification for Cont. Inpt. At this time patient will decompensate if placed in a lower level of care Discharge Planning Hopefully to return to his long term Request HC Surrog/Guard Advoc?: Yes Nawaf Diaz MD Jun 19, 2017 12:00
[2017-06-19 18:00] VITALS: BP 119/76; PULSE 95; RESP 18; TEMP 97.6; O2SAT 96
[2017-06-20 05:36] VITALS: BP 112/58; PULSE 60; RESP 18; TEMP 98.1; O2SAT 100
[2017-06-20] MEDS: GALANTAMINE HYDROBROMIDE 4 MG TAB PO SCH ×2 (09:25→21:09)
[2017-06-20] MEDS: CHOLECALCIFEROL (VIT D3) 5000 UNIT CAP PO SCH (09:25)
[2017-06-20] MEDS: ESCITALOPRAM OXALATE 20 MG TAB PO SCH (09:25)
[2017-06-20] MEDS: PANTOPRAZOLE SOD 40 MG DELAYED RELEASE TAB PO SCH (09:25)
[2017-06-20] MEDS: QUEtiapine FUMARATE 25 MG TAB PO SCH ×3 (09:28→21:09)
--- NOTE | 2017-06-20 09:54 | PD.TTN ---
Patient Problems 1. Discharge planning 2. Medication compliance 3. Knowledge deficit 4. Lack of coping skills Progress Toward Goals Provider Present: Dr. Mala Diaz Provider Input: Dr. iDaz's treatment team met to discuss patient's treatment plan, discharge, and medication. Patient continues to present confused, internally stimulated, continue treatment. 06/12/17 Patient presents alert to person only. Patient is confused and disoriented. Continued with treatment 06/18/17 Patient recieved an ETO the day prior due to aggressive behavioral and inappropriately interacting with peers on the unit. Patient became agitated but does not to have calmed down. Patient still meets criteria at current time. 06/20 Patient had minor outburst and is having medications titrated. patient still meets criteria and once stablize will return back to facility. Nurse(s) Input: Patient's nurse Danelle reports patient is medication compliant, calm, no behaviorial problem on unit. 06/18/17 Patient had become agitated and aggressive on unit on days prior. Continues to have lability. Patient is somewhat seclusive to bedroom but is seen in dayroom. Patient is compliant with medications and denies side effects. Patient is sleeping well. 06/20 Patient is labile on the unit. Is somewhat seen in dayroom. Patient is compliant with medications and denies side effects. Patient attending [facility] Psychiatric Counselors Present: Andrea Centeno [facility], Susana Spencer, [facility] , Roula Phan, [facility] Psych Therapist Input: Patient seen in the dayroom eating his breakfast. Patient presented with internal stimulation along with visual hallucinations. Patient denied suicidal and homicidal ideation. Patient presents with psychoagitation movements. 06/20 Patient does continue to have a labile affect but is cooperative and calm with this counselor. Patient is somewhat selecusive to self and does seem to be internally preoccupied. 06/18/17 Patient continues to be internally stimulated and slightly interactive on the unit. Patient is cooperative and calm but did not become aggitated and aggressive over the weekend. Currently patient is denying suicidal ideations and homicidal ideations. Patient will return to [place] once Dr. Diaz deems patient appropriately. Group Spec/RT/OT/RIGGINS Present: Jeremie Gonzalez OT, VAISHNAVI Tapia Group Spec/RT/OT/RIGGINS Input: Patient does not attend groups 06/12/17 Patient did not attend group. 06/20 Patient does not attend group. 06/18/17 Patient does not attend group activites. [facility] Jun 20, 2017 09:54
--- NOTE | 2017-06-20 12:22 | HHI.PYPN ---
Subjective Chief Complaint: patient demented with increased aggression in alf Remarks Patient seen in day room with floor staff, chart review, patient compliant medication. Patient continues markedly confused disoriented aware only of self. There is been no significant behavioral problems. For now continue treatment. Review of Systems Except as stated in HPI: all other systems reviewed are Neg Mental Status Examination Appearance: Disheveled Consciousness: Alert Orientation: Person Speech: Incoherent (at times), Speech impediment Language: Adequate Fund of Knowledge: Poor Attention and Concentration: Easily Distracted Memory: Impaired Mood: Anxious, Irritable (mildly) Affect: Irritable, Anxious Thought Process & Associations: Loose associations Thought Content: Bizarre thinking Hallucination Type: None Delusion Type: None Suicidal Ideation: No Suicidal Plan: No Suicidal Intention: No Homicidal Ideation: No Homicidal Plan: No Homicidal Intention: No Insight: Poor Judgment: Poor Results Vitals/IOs Vital Signs Date Time Temp Pulse Resp B/P (MAP) Pulse Ox O2 Delivery O2 Flow Rate FiO2 06/20/17 05:36 98.1 60 18 112/58 (76) 100 Intake and Output 06/20/17 06/20/17 06/21/17 08:00 16:00 00:00 Intake Total 240 ml Balance 240 ml Assessment & Plan Problem List: (1) DEMENTIA IN OTH DISEASES CLASSD ELSWHR W BEHAVIORAL DISTURB ICD Codes: F02.81 - DEMENTIA IN OTH DISEASES CLASSD ELSWHR W BEHAVIORAL DISTURB Status: Chronic (2) ALZHEIMER'S DISEASE WITH EARLY ONSET ICD Codes: G30.0 - ALZHEIMER'S DISEASE WITH EARLY ONSET Assessment & Plan Estimated LOS: days patient continues confused demented, though no significant behavioral problems recently, compliant medications consider discharge 1-2 days patient continues to stabilize Justification for Cont. Inpt. At this time patient will decompensate and placed in a lower level of care Discharge Planning Problem return to the [place] Request HC Surrog/Guard Advoc?: Yes Nawaf Diaz MD Jun 20, 2017 12:22
[2017-06-20 18:00] VITALS: BP 119/75; PULSE 70; RESP 16; TEMP 96.3; O2SAT 99
[2017-06-21 05:54] VITALS: BP 128/68; PULSE 63; RESP 18; TEMP 97.9; O2SAT 100
[2017-06-21] MEDS: GALANTAMINE HYDROBROMIDE 4 MG TAB PO SCH ×2 (08:53→20:27)
[2017-06-21] MEDS: PANTOPRAZOLE SOD 40 MG DELAYED RELEASE TAB PO SCH (08:53)
[2017-06-21] MEDS: CHOLECALCIFEROL (VIT D3) 5000 UNIT CAP PO SCH (08:53)
[2017-06-21] MEDS: ESCITALOPRAM OXALATE 20 MG TAB PO SCH (08:53)
[2017-06-21] MEDS: QUEtiapine FUMARATE 25 MG TAB PO SCH ×3 (09:12→20:28)
--- NOTE | 2017-06-21 10:29 | HHI.PYPN ---
Subjective Chief Complaint: patient demented with increased aggression in care home Remarks Patient seen in day room with nurse Vlad, patient continues confused oriented basically to self only. He has been no behavioral problems. Compliant with his medication. We'll have counselor contact [place] to see if bed is available. Patient reaching a maximum benefit of this hospitalization consider discharge tomorrow bed is available Review of Systems Except as stated in HPI: all other systems reviewed are Neg Mental Status Examination Appearance: Disheveled Consciousness: Alert Orientation: Person Speech: Incoherent (at times), Speech impediment Language: Adequate Fund of Knowledge: Poor Attention and Concentration: Easily Distracted Memory: Impaired Mood: Anxious, Irritable (mildly) Affect: Irritable, Anxious Thought Process & Associations: Loose associations Thought Content: Bizarre thinking Hallucination Type: None Delusion Type: None Suicidal Ideation: No Suicidal Plan: No Suicidal Intention: No Homicidal Ideation: No Homicidal Plan: No Homicidal Intention: No Insight: Poor Judgment: Poor Results Vitals/IOs Vital Signs Date Time Temp Pulse Resp B/P (MAP) Pulse Ox O2 Delivery O2 Flow Rate FiO2 06/21/17 05:54 97.9 63 18 128/68 (88) 100 Assessment & Plan Problem List: (1) DEMENTIA IN OTH DISEASES CLASSD ELSWHR W BEHAVIORAL DISTURB ICD Codes: F02.81 - DEMENTIA IN OTH DISEASES CLASSD ELSWHR W BEHAVIORAL DISTURB Status: Chronic (2) ALZHEIMER'S DISEASE WITH EARLY ONSET ICD Codes: G30.0 - ALZHEIMER'S DISEASE WITH EARLY ONSET Assessment & Plan Estimated LOS: days patient continues diffusely confused disoriented, no significant behavioral problems. Consider discharge tomorrow to [place] if bed is available Justification for Cont. Inpt. Patient will decompensate if not placed in an appropriate level of care Discharge Planning Anticipated return to [place] Request HC Surrog/Guard Advoc?: Yes Nawaf Diaz MD Jun 21, 2017 10:28
[2017-06-21] MEDS: hydrOXYzine HCL 50 MG TAB PO PRN ×2 (14:15→20:28)
[2017-06-21 16:47] VITALS: BP_SYST 128; BP_SYST 129; BP_DIAS 68; BP_DIAS 80; PULSE 63; PULSE 73; RESP 17; RESP 18; TEMP 97.9; TEMP 98.1; O2SAT 100
[2017-06-21] MEDS: traZODone HCL 50 MG TAB PO PRN (20:27)
[2017-06-22 05:50] VITALS: BP 134/60; PULSE 71; RESP 16; TEMP 97.7; O2SAT 94
[2017-06-22] MEDS: CHOLECALCIFEROL (VIT D3) 5000 UNIT CAP PO SCH (08:54)
[2017-06-22] MEDS: ESCITALOPRAM OXALATE 20 MG TAB PO SCH (08:54)
[2017-06-22] MEDS: PANTOPRAZOLE SOD 40 MG DELAYED RELEASE TAB PO SCH (08:54)
[2017-06-22] MEDS: GALANTAMINE HYDROBROMIDE 4 MG TAB PO SCH ×2 (08:54→20:39)
--- NOTE | 2017-06-22 13:16 | HHI.PYPN ---
Subjective Chief Complaint: patient demented with increased aggression in retirement Remarks Patient seen in day room with nurse Vlad and medical student Geovanna, patient continues calm quiet with me diffusely confused recognizing only self. However staff states they have noticed some increased irritability wandering into other patient's room and vague as drug-seeking towards 3 PM in the afternoon. Will adjust cervical dosage to 50 mg in the morning 100 mg about 2 PM and 50 mg towards bedtime Review of Systems Except as stated in HPI: all other systems reviewed are Neg Mental Status Examination Appearance: Disheveled Consciousness: Alert Orientation: Person Speech: Incoherent (at times), Speech impediment Language: Adequate Fund of Knowledge: Poor Attention and Concentration: Easily Distracted Memory: Impaired Mood: Anxious, Irritable (mildly) Affect: Irritable, Anxious Thought Process & Associations: Loose associations Thought Content: Bizarre thinking Hallucination Type: None Delusion Type: None Suicidal Ideation: No Suicidal Plan: No Suicidal Intention: No Homicidal Ideation: No Homicidal Plan: No Homicidal Intention: No Insight: Poor Judgment: Poor Results Vitals/IOs Vital Signs Date Time Temp Pulse Resp B/P (MAP) Pulse Ox O2 Delivery O2 Flow Rate FiO2 06/22/17 05:50 97.7 71 16 134/60 (84) 94 Assessment & Plan Problem List: (1) DEMENTIA IN OTH DISEASES CLASSD ELSWHR W BEHAVIORAL DISTURB ICD Codes: F02.81 - DEMENTIA IN OTH DISEASES CLASSD ELSWHR W BEHAVIORAL DISTURB Status: Chronic (2) ALZHEIMER'S DISEASE WITH EARLY ONSET ICD Codes: G30.0 - ALZHEIMER'S DISEASE WITH EARLY ONSET Assessment & Plan Estimated LOS: days patient continues demented confused overall good behavior but some miss behaviors towards late afternoon to medication adjustment above Justification for Cont. Inpt. At this time patient will decompensate if not placed an appropriate level of care Discharge Planning We will be an CUSTODIAL coming today or tomorrow to assess patient for placement Request HC Surrog/Guard Advoc?: Yes Nawaf Diaz MD Jun 22, 2017 13:16
[2017-06-22] MEDS: QUEtiapine FUMARATE 100 MG TAB PO SCH (14:00)
[2017-06-22 16:55] VITALS: BP 146/58; PULSE 73; RESP 16; TEMP 97.7; O2SAT 98
[2017-06-22] MEDS: hydrOXYzine HCL 50 MG TAB PO PRN (20:37)
[2017-06-22] MEDS: QUEtiapine FUMARATE 25 MG TAB PO SCH (20:38)
[2017-06-22] MEDS: traZODone HCL 50 MG TAB PO PRN (20:39)
[2017-06-23] MEDS: LORazepam 0.5 MG TAB PO PRN (01:12)
[2017-06-23] MEDS: hydrOXYzine HCL 50 MG TAB PO PRN (05:34)
[2017-06-23 06:03] VITALS: BP 101/60; PULSE 68; RESP 18; TEMP 98.5; O2SAT 98
[2017-06-23] MEDS: CHOLECALCIFEROL (VIT D3) 5000 UNIT CAP PO SCH (09:01)
[2017-06-23] MEDS: ESCITALOPRAM OXALATE 20 MG TAB PO SCH (09:01)
[2017-06-23] MEDS: PANTOPRAZOLE SOD 40 MG DELAYED RELEASE TAB PO SCH (09:01)
[2017-06-23] MEDS: GALANTAMINE HYDROBROMIDE 4 MG TAB PO SCH ×2 (09:01→21:39)
[2017-06-23] MEDS: QUEtiapine FUMARATE 25 MG TAB PO SCH ×2 (09:19→21:39)
[2017-06-23] MEDS: QUEtiapine FUMARATE 100 MG TAB PO SCH (13:34)
--- NOTE | 2017-06-23 16:16 | HHI.PYPN ---
Subjective Chief Complaint: patient demented with increased aggression in senior care Remarks Pt seen and discussed with staff. He is oriented to self only and disorganized in behaviors. He is irritable during interview and tells , "now that's enough , you sound like a little girl." He is compliant with medications. No SIHI Mental Status Examination Appearance: Disheveled Consciousness: Alert Orientation: Person Speech: Incoherent (at times), Speech impediment Language: Adequate Fund of Knowledge: Poor Attention and Concentration: Easily Distracted Memory: Impaired Mood: Anxious, Irritable (mildly) Affect: Irritable, Anxious Thought Process & Associations: Loose associations Thought Content: Bizarre thinking Hallucination Type: None Delusion Type: None Suicidal Ideation: No Suicidal Plan: No Suicidal Intention: No Homicidal Ideation: No Homicidal Plan: No Homicidal Intention: No Insight: Poor Judgment: Poor Results Vitals/IOs Vital Signs Date Time Temp Pulse Resp B/P (MAP) Pulse Ox O2 Delivery O2 Flow Rate FiO2 06/23/17 06:03 98.5 68 18 101/60 (74) 98 Assessment & Plan Problem List: (1) DEMENTIA IN OTH DISEASES CLASSD ELSWHR W BEHAVIORAL DISTURB ICD Codes: F02.81 - DEMENTIA IN OTH DISEASES CLASSD ELSWHR W BEHAVIORAL DISTURB Status: Chronic (2) ALZHEIMER'S DISEASE WITH EARLY ONSET ICD Codes: G30.0 - ALZHEIMER'S DISEASE WITH EARLY ONSET Assessment & Plan Continue current tx plan. Estimated LOS: days Justification for Cont. Inpt. impairments in self care, risk of decompensation. Request HC Surrog/Guard Advoc?: Yes Alena Herring MD Jun 23, 2017 16:16
[2017-06-23 18:00] VITALS: BP 122/72; PULSE 88; RESP 18; TEMP 97.4; O2SAT 96
[2017-06-24 06:02] VITALS: BP 132/80; PULSE 67; RESP 16; TEMP 97.3; O2SAT 96
[2017-06-24] MEDS: ESCITALOPRAM OXALATE 20 MG TAB PO SCH (10:22)
[2017-06-24] MEDS: CHOLECALCIFEROL (VIT D3) 5000 UNIT CAP PO SCH (10:22)
[2017-06-24] MEDS: PANTOPRAZOLE SOD 40 MG DELAYED RELEASE TAB PO SCH (10:22)
[2017-06-24] MEDS: GALANTAMINE HYDROBROMIDE 4 MG TAB PO SCH ×2 (10:23→22:01)
[2017-06-24] MEDS: QUEtiapine FUMARATE 25 MG TAB PO SCH ×2 (10:24→22:01)
[2017-06-24] MEDS: QUEtiapine FUMARATE 100 MG TAB PO SCH (14:00)
--- NOTE | 2017-06-24 14:55 | HHI.PYPN ---
Subjective Chief Complaint: patient demented with increased aggression in detention Remarks Pt seen and discussed with staff. He has been compliant with medications. He became agitated last night after he looked in mirror and did not recognize reflection. No behavioral problems today. No SI/HI Mental Status Examination Appearance: Disheveled Consciousness: Alert Orientation: Person Speech: Incoherent (at times), Speech impediment Language: Adequate Fund of Knowledge: Poor Attention and Concentration: Easily Distracted Memory: Impaired Mood: Anxious, Irritable (mildly) Affect: Irritable, Anxious Thought Process & Associations: Loose associations Thought Content: Bizarre thinking Hallucination Type: None Delusion Type: None Suicidal Ideation: No Suicidal Plan: No Suicidal Intention: No Homicidal Ideation: No Homicidal Plan: No Homicidal Intention: No Insight: Poor Judgment: Poor Results Vitals/IOs Vital Signs Date Time Temp Pulse Resp B/P (MAP) Pulse Ox O2 Delivery O2 Flow Rate FiO2 06/24/17 06:02 97.3 67 16 132/80 (97) 96 Assessment & Plan Problem List: (1) DEMENTIA IN OTH DISEASES CLASSD ELSWHR W BEHAVIORAL DISTURB ICD Codes: F02.81 - DEMENTIA IN OTH DISEASES CLASSD ELSWHR W BEHAVIORAL DISTURB Status: Chronic (2) ALZHEIMER'S DISEASE WITH EARLY ONSET ICD Codes: G30.0 - ALZHEIMER'S DISEASE WITH EARLY ONSET Assessment & Plan Continue current tx plan. Estimated LOS: days Justification for Cont. Inpt. agitation. risk of decompensation Request HC Surrog/Guard Advoc?: Yes Alena Herring MD Jun 24, 2017 14:55
[2017-06-24 18:00] VITALS: BP 133/63; PULSE 74; RESP 17; TEMP 98.4; O2SAT 97
[2017-06-25 06:12] VITALS: BP 110/58; PULSE 76; RESP 18; TEMP 96.3; O2SAT 95
[2017-06-25] MEDS: PANTOPRAZOLE SOD 40 MG DELAYED RELEASE TAB PO SCH (08:31)
[2017-06-25] MEDS: GALANTAMINE HYDROBROMIDE 4 MG TAB PO SCH ×2 (08:31→21:00)
[2017-06-25] MEDS: CHOLECALCIFEROL (VIT D3) 5000 UNIT CAP PO SCH (08:31)
[2017-06-25] MEDS: ESCITALOPRAM OXALATE 20 MG TAB PO SCH (08:31)
[2017-06-25] MEDS: LORazepam 0.5 MG TAB PO PRN (09:00)
--- NOTE | 2017-06-25 10:01 | PD.TTN ---
Patient Problems 1. Discharge planning 2. Medication compliance 3. Knowledge deficit 4. Lack of coping skills Progress Toward Goals Provider Present: Dr. Mala Diaz Provider Input: Dr. Diaz's treatment team met to discuss patient's treatment plan, discharge, and medication. Patient continues to present confused, internally stimulated, continue treatment. 06/12/17 Patient presents alert to person only. Patient is confused and disoriented. Continued with treatment 06/18/17 Patient recieved an ETO the day prior due to aggressive behavioral and inappropriately interacting with peers on the unit. Patient became agitated but does not to have calmed down. Patient still meets criteria at current time. 06/20 Patient had minor outburst and is having medications titrated. patient still meets criteria and once stablize will return back to facility. 06/25 Pt is close to baseline and ready for discharge when placement is secure. Nurse(s) Input: Patient's nurse Danelle reports patient is medication compliant, calm, no behaviorial problem on unit. 06/18/17 Patient had become agitated and aggressive on unit on days prior. Continues to have lability. Patient is somewhat seclusive to bedroom but is seen in dayroom. Patient is compliant with medications and denies side effects. Patient is sleeping well. 06/20 Patient is labile on the unit. Is somewhat seen in dayroom. Patient is compliant with medications and denies side effects. Patient attending [facility] Psychiatric Counselors Present: Andrea Centeno [facility], Susana Spencer, [facility] , Davon Tilley Jr., [facility], Roula Phan, [facility] Psych Therapist Input: Patient seen in the dayroom eating his breakfast. Patient presented with internal stimulation along with visual hallucinations. Patient denied suicidal and homicidal ideation. Patient presents with psychoagitation movements. 06/20 Patient does continue to have a labile affect but is cooperative and calm with this counselor. Patient is somewhat selecusive to self and does seem to be internally preoccupied. 06/18/17 Patient continues to be internally stimulated and slightly interactive on the unit. Patient is cooperative and calm but did not become aggitated and aggressive over the weekend. Currently patient is denying suicidal ideations and homicidal ideations. Patient will return to [place] once Dr. Diaz deems patient appropriately. 06/25 María Elena Daley will assess pt today for potential placement. Group Spec/RT/OT/RIGGINS Present: Jeremie Gonzalez OT, Fabrice Wiggins, VAISHNAVI Group Spec/RT/OT/RIGGINS Input: Patient does not attend groups 06/12/17 Patient did not attend group. 06/20 Patient does not attend group. 06/18/17 Patient does not attend group activites. Davon Tilley Jr, GEOMORPHOLOGIST Jun 25, 2017 10:01
[2017-06-25] MEDS: QUEtiapine FUMARATE 25 MG TAB PO SCH ×2 (10:21→20:00)
--- NOTE | 2017-06-25 12:09 | HHI.PYPN ---
Subjective Chief Complaint: patient demented with increased aggression in half-way Remarks Patient seen in his room with nurse Vlad, chart reviewed, patient compliant medications. Patient continues significantly demented confused disoriented aware only of name. However to show no behavioral problems. Is compliant with his medications. For now continue treatment Review of Systems Except as stated in HPI: all other systems reviewed are Neg Mental Status Examination Appearance: Disheveled Consciousness: Alert Orientation: Person Speech: Incoherent (at times), Speech impediment Language: Adequate Fund of Knowledge: Poor Attention and Concentration: Easily Distracted Memory: Impaired Mood: Anxious, Irritable (mildly) Affect: Irritable, Anxious Thought Process & Associations: Loose associations Thought Content: Bizarre thinking Hallucination Type: None Delusion Type: None Suicidal Ideation: No Suicidal Plan: No Suicidal Intention: No Homicidal Ideation: No Homicidal Plan: No Homicidal Intention: No Insight: Poor Judgment: Poor Results Vitals/IOs Vital Signs Date Time Temp Pulse Resp B/P (MAP) Pulse Ox O2 Delivery O2 Flow Rate FiO2 06/25/17 06:12 96.3 76 18 110/58 (75) 95 Assessment & Plan Problem List: (1) DEMENTIA IN OTH DISEASES CLASSD ELSWHR W BEHAVIORAL DISTURB ICD Codes: F02.81 - DEMENTIA IN OTH DISEASES CLASSD ELSWHR W BEHAVIORAL DISTURB Status: Chronic (2) ALZHEIMER'S DISEASE WITH EARLY ONSET ICD Codes: G30.0 - ALZHEIMER'S DISEASE WITH EARLY ONSET Assessment & Plan Estimated LOS patient she is severely demented, oriented patient to self only. Compliant medications. Continue to work on placement issues: days Justification for Cont. Inpt. At this point patient would decompensate if not placed in an appropriate level of care Discharge Planning Continue to work with placement issues Request HC Surrog/Guard Advoc?: Yes Nawaf Diaz MD Jun 25, 2017 12:09
[2017-06-25] MEDS: QUEtiapine FUMARATE 100 MG TAB PO SCH (14:36)
[2017-06-25 18:00] VITALS: BP 130/81; PULSE 88; RESP 18; TEMP 98.4; O2SAT 97
[2017-06-25] MEDS ORDERED: HALOPERIDOL LACTATE 5 MG/ML AMP ONE (19:39)
[2017-06-25] MEDS ORDERED: diphenhydrAMINE HCL 50 MG/ML VIAL ONE (19:39)
[2017-06-25] MEDS ORDERED: diphenhydrAMINE HCL 50 MG/ML VIAL IM ONE ×2 (20:00)
[2017-06-25] MEDS ORDERED: HALOPERIDOL LACTATE 5 MG/ML AMP IM ONE ×2 (20:00)
[2017-06-26 06:15] VITALS: BP 99/51; PULSE 67; RESP 17; TEMP 97.9; O2SAT 97
[2017-06-26] MEDS: GALANTAMINE HYDROBROMIDE 4 MG TAB PO SCH ×2 (08:37→20:42)
[2017-06-26] MEDS: PANTOPRAZOLE SOD 40 MG DELAYED RELEASE TAB PO SCH (08:37)
[2017-06-26] MEDS: ESCITALOPRAM OXALATE 20 MG TAB PO SCH (08:37)
[2017-06-26] MEDS: LORazepam 0.5 MG TAB PO PRN (08:37)
[2017-06-26] MEDS: CHOLECALCIFEROL (VIT D3) 5000 UNIT CAP PO SCH (08:37)
[2017-06-26] MEDS: QUEtiapine FUMARATE 25 MG TAB PO SCH (10:00)
--- NOTE | 2017-06-26 14:10 | HHI.PYPN ---
Subjective Chief Complaint: patient demented with increased aggression in jail Remarks Patient seen in day room with nurse Vlad, chart review, patient compliant medications. Patient continues diffusely confused at times somewhat guarded but no behavior problems when I visit with him. However staff states that patient had a bad night last night becoming markedly angry and aggressive, was suing a at various floor staff. Did need and ETO by the on-call psychiatrist. Will increase Seroquel to 100 mg at 10 AM 4 PM and 8 PM, and increase when necessary Ativan from 0.5 mg to 1 mg either by mouth or IM for agitation/anxiety Review of Systems Except as stated in HPI: all other systems reviewed are Neg Mental Status Examination Appearance: Disheveled Consciousness: Alert Orientation: Person Speech: Incoherent (at times), Speech impediment Language: Adequate Fund of Knowledge: Poor Attention and Concentration: Easily Distracted Memory: Impaired Mood: Anxious, Irritable (mildly) Affect: Irritable, Anxious Thought Process & Associations: Loose associations Thought Content: Bizarre thinking Hallucination Type: None Delusion Type: None Suicidal Ideation: No Suicidal Plan: No Suicidal Intention: No Homicidal Ideation: No Homicidal Plan: No Homicidal Intention: No Insight: Poor Judgment: Poor Results Vitals/IOs Vital Signs Date Time Temp Pulse Resp B/P (MAP) Pulse Ox O2 Delivery O2 Flow Rate FiO2 06/26/17 06:15 97.9 67 17 99/51 (67) 97 Assessment & Plan Problem List: (1) DEMENTIA IN OTH DISEASES CLASSD ELSWHR W BEHAVIORAL DISTURB ICD Codes: F02.81 - DEMENTIA IN OTH DISEASES CLASSD ELSWHR W BEHAVIORAL DISTURB Status: Chronic (2) ALZHEIMER'S DISEASE WITH EARLY ONSET ICD Codes: G30.0 - ALZHEIMER'S DISEASE WITH EARLY ONSET Assessment & Plan stimated LOS: days patient continues really demented confused with some increasing behavioral issues in the evening, please see medication adjustments above Justification for Cont. Inpt. At this time patient will decompensate with now placed in an appropriate level of care Discharge Planning Placement may become problematic related to his behaviors Request HC Surrog/Guard Advoc?: Yes Nawaf Diaz MD Jun 26, 2017 14:10
[2017-06-26] MEDS ORDERED: LORazepam 2 MG/ML VIAL IM PRN (14:15)
[2017-06-26] MEDS: QUEtiapine FUMARATE 100 MG TAB PO SCH ×2 (16:00→19:36)
[2017-06-26] MEDS ORDERED: LORazepam 0.5 MG TAB PO PRN (17:00)
[2017-06-26 18:22] VITALS: BP 131/60; PULSE 104; RESP 18; TEMP 98.8; O2SAT 100
[2017-06-27 05:41] VITALS: BP 139/76; PULSE 64; RESP 17; TEMP 97.3; O2SAT 97
[2017-06-27] MEDS: GALANTAMINE HYDROBROMIDE 4 MG TAB PO SCH ×2 (08:40→21:00)
[2017-06-27] MEDS: ESCITALOPRAM OXALATE 20 MG TAB PO SCH (08:40)
[2017-06-27] MEDS: CHOLECALCIFEROL (VIT D3) 5000 UNIT CAP PO SCH (08:40)
[2017-06-27] MEDS: PANTOPRAZOLE SOD 40 MG DELAYED RELEASE TAB PO SCH (08:40)
[2017-06-27] MEDS: QUEtiapine FUMARATE 100 MG TAB PO SCH ×3 (09:50→21:00)
--- NOTE | 2017-06-27 13:11 | HHI.PYPN ---
Subjective Chief Complaint: patient demented with increased aggression in [facility] Remarks Patient seen in day room with nurse Alison, chart review, patient compliant medication. Patient continues calm pleasant with me this afternoon, showing no behavioral issues, continues markedly confused and disoriented. It appears his behavior was better last night also Review of Systems Except as stated in HPI: all other systems reviewed are Neg Mental Status Examination Appearance: Disheveled Consciousness: Alert Orientation: Person Speech: Incoherent (at times), Speech impediment Language: Adequate Fund of Knowledge: Poor Attention and Concentration: Easily Distracted Memory: Impaired Mood: Anxious, Irritable (mildly) Affect: Irritable, Anxious Thought Process & Associations: Loose associations Thought Content: Bizarre thinking Hallucination Type: None Delusion Type: None Suicidal Ideation: No Suicidal Plan: No Suicidal Intention: No Homicidal Ideation: No Homicidal Plan: No Homicidal Intention: No Insight: Poor Judgment: Poor Results Vitals/IOs Vital Signs Date Time Temp Pulse Resp B/P (MAP) Pulse Ox O2 Delivery O2 Flow Rate FiO2 06/27/17 05:41 97.3 64 17 139/76 (97) 97 Assessment & Plan Problem List: (1) DEMENTIA IN OTH DISEASES CLASSD ELSWHR W BEHAVIORAL DISTURB ICD Codes: F02.81 - DEMENTIA IN OTH DISEASES CLASSD ELSWHR W BEHAVIORAL DISTURB Status: Chronic (2) ALZHEIMER'S DISEASE WITH EARLY ONSET ICD Codes: G30.0 - ALZHEIMER'S DISEASE WITH EARLY ONSET Assessment & Plan Estimated LOS: days patient continues confused demented, that appears his behaviors have calm somewhat, compliant medication Justification for Cont. Inpt. At this time patient will decompensate if not placed in an appropriate level of care Discharge Planning Continue to work with placement issues Request HC Surrog/Guard Advoc?: Yes Nawaf Diaz MD Jun 27, 2017 13:11
[2017-06-27 18:00] VITALS: BP 120/73; PULSE 83; RESP 16; TEMP 97.1; O2SAT 99
[2017-06-28 06:04] VITALS: BP 137/103; PULSE 64; RESP 17; TEMP 97.6; O2SAT 99
[2017-06-28] MEDS: CHOLECALCIFEROL (VIT D3) 5000 UNIT CAP PO SCH (08:26)
[2017-06-28] MEDS: ESCITALOPRAM OXALATE 20 MG TAB PO SCH (08:26)
[2017-06-28] MEDS: PANTOPRAZOLE SOD 40 MG DELAYED RELEASE TAB PO SCH (08:26)
[2017-06-28] MEDS: GALANTAMINE HYDROBROMIDE 4 MG TAB PO SCH ×2 (08:27→21:00)
[2017-06-28] MEDS: QUEtiapine FUMARATE 100 MG TAB PO SCH ×3 (10:05→20:00)
--- NOTE | 2017-06-28 13:21 | HHI.PYPN ---
Subjective Chief Complaint: patient demented with increased aggression in correction Remarks Patient seen in dayroom with floor staff, patient complains diffusely confused and disorganized. Compliant medications. At the present time no behavioral problems Review of Systems Except as stated in HPI: all other systems reviewed are Neg Mental Status Examination Appearance: Disheveled Consciousness: Alert Orientation: Person Speech: Incoherent (at times), Speech impediment Language: Adequate Fund of Knowledge: Poor Attention and Concentration: Easily Distracted Memory: Impaired Mood: Anxious, Irritable (mildly) Affect: Irritable, Anxious Thought Process & Associations: Loose associations Thought Content: Bizarre thinking Hallucination Type: None Delusion Type: None Suicidal Ideation: No Suicidal Plan: No Suicidal Intention: No Homicidal Ideation: No Homicidal Plan: No Homicidal Intention: No Insight: Poor Judgment: Poor Results Vitals/IOs Vital Signs Date Time Temp Pulse Resp B/P (MAP) Pulse Ox O2 Delivery O2 Flow Rate FiO2 06/28/17 06:04 97.6 64 17 137/103 (114) 99 Intake and Output 06/28/17 06/28/17 06/29/17 08:00 16:00 00:00 Intake Total 360 ml Balance 360 ml Assessment & Plan Problem List: (1) DEMENTIA IN OTH DISEASES CLASSD ELSWHR W BEHAVIORAL DISTURB ICD Codes: F02.81 - DEMENTIA IN OTH DISEASES CLASSD ELSWHR W BEHAVIORAL DISTURB Status: Chronic (2) ALZHEIMER'S DISEASE WITH EARLY ONSET ICD Codes: G30.0 - ALZHEIMER'S DISEASE WITH EARLY ONSET Assessment & Plan Estimated LOS: days patient continues confused disoriented demented, no behavior problems recently. Compliant medications Justification for Cont. Inpt. At this time patient will decompensate the placed in a lower level of care Discharge Planning Appropriate placement is quite problematic at this time Request HC Surrog/Guard Advoc?: Yes Nawaf Diaz MD Jun 28, 2017 13:21
[2017-06-28] MEDS ORDERED: LORazepam 2 MG/ML VIAL IM STA (16:24)
[2017-06-28] MEDS ORDERED: diphenhydrAMINE HCL 50 MG/ML VIAL IM STA (16:24)
[2017-06-28] MEDS ORDERED: HALOPERIDOL LACTATE 5 MG/ML AMP IM STA (16:24)
[2017-06-29 06:25] VITALS: BP 123/62; PULSE 66; RESP 16; TEMP 97.4; O2SAT 96
[2017-06-29] MEDS: CHOLECALCIFEROL (VIT D3) 5000 UNIT CAP PO SCH (09:24)
[2017-06-29] MEDS: PANTOPRAZOLE SOD 40 MG DELAYED RELEASE TAB PO SCH (09:24)
[2017-06-29] MEDS: ESCITALOPRAM OXALATE 20 MG TAB PO SCH (09:24)
[2017-06-29] MEDS: GALANTAMINE HYDROBROMIDE 4 MG TAB PO SCH ×2 (09:25→21:14)
[2017-06-29] MEDS: QUEtiapine FUMARATE 100 MG TAB PO SCH ×3 (09:25→21:14)
[2017-06-29] MEDS ORDERED: CHOL5000 PO (13:52)
[2017-06-29] MEDS ORDERED: GALA4TAB PO (13:52)
[2017-06-29] MEDS ORDERED: ESCI20TA PO (13:52)
[2017-06-29] MEDS ORDERED: QUET1TAB8 PO (13:52)
[2017-06-29] MEDS ORDERED: PANT40TA3 PO (13:52)
--- NOTE | 2017-06-29 13:56 | HHI.DS ---
Psychiatry Discharge Summary Inpatient Psychiatric care?: Yes Advance Directive: No Reason Not Provided: Due to Patient Condition Mental Health AdvanceDirective: No Health Care Proxy: No Admission Admission Date Jun 08, 2017 at 00:47 Admission Diagnosis: (1) ALZHEIMER'S DISEASE WITH EARLY ONSET ICD Code: G30.0 - ALZHEIMER'S DISEASE WITH EARLY ONSET (2) DEMENTIA IN OTH DISEASES CLASSD ELSWHR W BEHAVIORAL DISTURB ICD Code: F02.81 - DEMENTIA IN OTH DISEASES CLASSD ELSWHR W BEHAVIORAL DISTURB Brief History Pt seen and discussed with staff. He was admitted yesterday under a BA due to aggression.Pt has a hx of dementia and demonstrates severe cognitive impairment. He requires staff assistance with feeding and demonstrates aphasia. Staff report that pt has been withdrawn but has not been aggressive today. He cannot provide any meaningful history. Staff are attempting to reach family for healthcare surrogate. d Tobacco Use In Past 30 Days: Cognitive Impairment Alcohol Use: Never Hospital Course Patient's hospital course was eventful for occasional late afternoon and evening increase in behaviors mild intrusiveness. Though he is redirectable. He has been compliant with medications. The frequency intensity and duration of these behaviors have softened quite a bit. Continues diffusely confused all 4 spheres. Thus I feel patient is receiving maximum benefit of this hospitalization. He has been assessed by [facility] they've a bed available from today they're willing to accept him in their facility. Thus patient will be discharged today to undergo palms Rx 1 month the follow-up mental health services through that facility Results Blood Pressure 123 / 62 Vital Signs Date Time Temp Pulse Resp B/P (MAP) Pulse Ox O2 Delivery O2 Flow Rate FiO2 06/29/17 06:25 97.4 66 16 123/62 (82) 96 Laboratory Results Test 06/09/17 06:53 Cholesterol Level 150 MG/DL (120-200) HDL Cholesterol 64.1 MG/DL (40.0-60.0) Hemoglobin A1c 5.5 % (4.3-6.0) LDL Cholesterol 74 MG/DL (0-99) Triglycerides Level 62 MG/DL (42-150) Summary of Procedures None done Imaging Last Impressions Head CT 06/07/17 0000 Signed Impressions: Service Date/Time: , June 07, 2017 18:10 - CONCLUSION: 1. No acute abnormality seen. 2. Atrophy. The ventricular dilatation appears out of proportion to the sulcal widening suggesting normal pressure hydrocephalus in the correct clinical situation. Nawaf Osorio MD Pending results at discharge: No Medications # of Antipsychotic meds at D/C: 1 Approp Antipsych med options 1 - Minimum of three failed multiple trials of monotherapy. 2 - Documented plan to taper to monotherapy due to previous use of multiple meds OR cross-taper in progress at D/C. 3 - Documentation of augmentation of Clozapine. 4 - Justification other than those listed in allowable values 1-3, document here : Discharge Discharge Date: Jun 29, 2017 Discharge Diagnosis: (1) ALZHEIMER'S DISEASE WITH EARLY ONSET Diagnosis: Principal ICD Code: G30.0 - ALZHEIMER'S DISEASE WITH EARLY ONSET (2) DEMENTIA IN OTH DISEASES CLASSD ELSWHR W BEHAVIORAL DISTURB Diagnosis: Principal ICD Code: F02.81 - DEMENTIA IN OTH DISEASES CLASSD ELSWHR W BEHAVIORAL DISTURB Status: Chronic Pt Condition on Discharge: Stable Discharge Disposition: [facility]F/[facility] Discharge Instructions Diet Instructions: As Tolerated, No Restrictions Activities you can perform: Regular-No Restrictions Scheduled Appointment: follow-up mental health services through [facility] Discharge Time > 30 minutes Mental Status Examination Appearance: Disheveled Consciousness: Alert Orientation: Person Speech: Incoherent (at times), Speech impediment Language: Adequate Fund of Knowledge: Poor Attention and Concentration: Easily Distracted Memory: Impaired Mood: Anxious, Irritable (mildly) Affect: Irritable, Anxious Thought Process & Associations: Loose associations Thought Content: Bizarre thinking Hallucination Type: None Delusion Type: None Suicidal Ideation: No Suicidal Plan: No Suicidal Intention: No Homicidal Ideation: No Homicidal Plan: No Homicidal Intention: No Insight: Poor Judgment: Poor Discharge/Advance Care Plan Health Problems: (1) DEMENTIA IN OTH DISEASES CLASSD ELSWHR W BEHAVIORAL DISTURB (2) ALZHEIMER'S DISEASE WITH EARLY ONSET Goals to promote your health * To prevent worsening of your condition and complications * To maintain your health at the optimal level Directions to meet your goals Take your medications as prescribed Follow your dietary instruction Follow activity as directed Keep your appointments as scheduled Take your immunizations and boosters as scheduled If your symptoms worsen call your PCP, if no PCP go to Urgent Care Center or Emergency Room For 24/ questions related to your inpatient stay or results of tests pending at discharge, please contact Dr. Nawaf Diaz at Smoking is Dangerous to Your Health. Avoid second hand smoking Nawaf Diaz MD Jun 29, 2017 13:56
[2017-06-29 18:53] VITALS: BP 143/78; PULSE 87; RESP 18; TEMP 97.9; O2SAT 98
[2017-06-30 05:53] VITALS: BP 133/73; PULSE 96; RESP 18; TEMP 97.4; O2SAT 97
[2017-06-30] MEDS: GALANTAMINE HYDROBROMIDE 4 MG TAB PO SCH ×2 (09:00→20:39)
[2017-06-30] MEDS: PANTOPRAZOLE SOD 40 MG DELAYED RELEASE TAB PO SCH (09:00)
[2017-06-30] MEDS: ESCITALOPRAM OXALATE 20 MG TAB PO SCH (09:00)
[2017-06-30] MEDS: CHOLECALCIFEROL (VIT D3) 5000 UNIT CAP PO SCH (09:00)
[2017-06-30] MEDS: QUEtiapine FUMARATE 100 MG TAB PO SCH ×3 (10:00→20:52)
--- NOTE | 2017-06-30 13:51 | HHI.PYPN ---
Subjective Chief Complaint: patient demented with increased aggression in custodial Remarks Patient was seen and case discussed with nursing. Patient is alert and oriented 1. Behaving well on the unit. Tolerating medications well. No outbursts Mental Status Examination Appearance: Disheveled Consciousness: Alert Orientation: Person Speech: Incoherent (at times), Speech impediment Language: Adequate Fund of Knowledge: Poor Attention and Concentration: Easily Distracted Memory: Impaired Mood: Anxious, Irritable (mildly) Affect: Irritable, Anxious Thought Process & Associations: Loose associations Thought Content: Bizarre thinking Hallucination Type: None Delusion Type: None Suicidal Ideation: No Suicidal Plan: No Suicidal Intention: No Homicidal Ideation: No Homicidal Plan: No Homicidal Intention: No Insight: Poor Judgment: Poor Results Vitals/IOs Vital Signs Date Time Temp Pulse Resp B/P (MAP) Pulse Ox O2 Delivery O2 Flow Rate FiO2 06/30/17 05:53 97.4 96 18 133/73 (93) 97 Intake and Output 06/30/17 06/30/17 07/01/17 08:00 16:00 00:00 Intake Total 240 ml Balance 240 ml Assessment & Plan Problem List: (1) DEMENTIA IN OTH DISEASES CLASSD ELSWHR W BEHAVIORAL DISTURB ICD Codes: F02.81 - DEMENTIA IN OTH DISEASES CLASSD ELSWHR W BEHAVIORAL DISTURB Status: Chronic (2) ALZHEIMER'S DISEASE WITH EARLY ONSET ICD Codes: G30.0 - ALZHEIMER'S DISEASE WITH EARLY ONSET Assessment & Plan Continue current treatment plan Justification for Cont. Inpt. Patient would decompensate in a less restrictive setting Request HC Surrog/Guard Advoc?: Yes Cholo Samaniego DO Jun 30, 2017 13:51
[2017-06-30] MEDS: traZODone HCL 50 MG TAB PO PRN (20:39)
[2017-07-01 06:28] VITALS: BP 137/83; PULSE 67; RESP 18; O2SAT 100
[2017-07-01] MEDS: ESCITALOPRAM OXALATE 20 MG TAB PO SCH (09:00)
[2017-07-01] MEDS: PANTOPRAZOLE SOD 40 MG DELAYED RELEASE TAB PO SCH (09:00)
[2017-07-01] MEDS: GALANTAMINE HYDROBROMIDE 4 MG TAB PO SCH ×2 (09:00→20:49)
[2017-07-01] MEDS: CHOLECALCIFEROL (VIT D3) 5000 UNIT CAP PO SCH (09:00)
[2017-07-01] MEDS: QUEtiapine FUMARATE 100 MG TAB PO SCH ×3 (10:00→20:48)
--- NOTE | 2017-07-01 17:28 | HHI.PYPN ---
Subjective Chief Complaint: patient demented with increased aggression in intermediate Remarks Patient was seen and case discussed with nursing. Patient is pleasant and cooperative with exam. His compliant with his medications. Somewhat sexually inappropriate. Remains confused, incontinent per nursing. He is less intrusive and has been behaving well on the unit Mental Status Examination Appearance: Disheveled Consciousness: Alert Orientation: Person Speech: Incoherent (at times), Speech impediment Language: Adequate Fund of Knowledge: Poor Attention and Concentration: Easily Distracted Memory: Impaired Mood: Oppositional, Irritable (mildly) Affect: Irritable, Anxious Thought Process & Associations: Loose associations Thought Content: Bizarre thinking Hallucination Type: None Delusion Type: None Suicidal Ideation: No Suicidal Plan: No Suicidal Intention: No Homicidal Ideation: No Homicidal Plan: No Homicidal Intention: No Insight: Poor Judgment: Poor Results Vitals/IOs Vital Signs Date Time Temp Pulse Resp B/P (MAP) Pulse Ox O2 Delivery O2 Flow Rate FiO2 07/01/17 06:28 67 18 137/83 (101) 100 06/30/17 05:53 97.4 Intake and Output 07/01/17 07/01/17 07/02/17 08:00 16:00 00:00 Intake Total 60 ml Balance 60 ml Assessment & Plan Problem List: (1) DEMENTIA IN OTH DISEASES CLASSD ELSWHR W BEHAVIORAL DISTURB ICD Codes: F02.81 - DEMENTIA IN OTH DISEASES CLASSD ELSWHR W BEHAVIORAL DISTURB Status: Chronic (2) ALZHEIMER'S DISEASE WITH EARLY ONSET ICD Codes: G30.0 - ALZHEIMER'S DISEASE WITH EARLY ONSET Assessment & Plan Continue current treatment plan Justification for Cont. Inpt. Patient would decompensate in a less restrictive setting Request HC Surrog/Guard Advoc?: Yes Cholo Samaniego DO Jul 01, 2017 17:28
[2017-07-01 18:30] VITALS: BP 136/78; PULSE 105; RESP 18; TEMP 98.1; O2SAT 98
[2017-07-02 05:42] VITALS: BP 130/75; PULSE 79; RESP 16; TEMP 97.6; O2SAT 97
[2017-07-02] MEDS: ESCITALOPRAM OXALATE 20 MG TAB PO SCH (08:52)
[2017-07-02] MEDS: PANTOPRAZOLE SOD 40 MG DELAYED RELEASE TAB PO SCH (08:53)
[2017-07-02] MEDS: CHOLECALCIFEROL (VIT D3) 5000 UNIT CAP PO SCH (08:53)
[2017-07-02] MEDS: GALANTAMINE HYDROBROMIDE 4 MG TAB PO SCH ×2 (08:53→20:59)
[2017-07-02] MEDS: QUEtiapine FUMARATE 100 MG TAB PO SCH ×3 (10:00→20:59)
--- NOTE | 2017-07-02 16:01 | PD.TTN ---
Patient Problems 1. Discharge planning 2. Medication compliance 3. Knowledge deficit 4. Lack of coping skills Progress Toward Goals Provider Present: Dr. Mala Diaz Provider Input: 07-02-17 - Patient will be discharged today to [facility]. Dr. Diaz's treatment team met to discuss patient's treatment plan, discharge, and medication. Patient continues to present confused, internally stimulated, continue treatment. 06/12/17 Patient presents alert to person only. Patient is confused and disoriented. Continued with treatment 06/18/17 Patient recieved an ETO the day prior due to aggressive behavioral and inappropriately interacting with peers on the unit. Patient became agitated but does not to have calmed down. Patient still meets criteria at current time. 06/20 Patient had minor outburst and is having medications titrated. patient still meets criteria and once stablize will return back to facility. 06/25 Pt is close to baseline and ready for discharge when placement is secure. Nurse(s) Input: Patient's nurse Danelle reports patient is medication compliant, calm, no behaviorial problem on unit. 06/18/17 Patient had become agitated and aggressive on unit on days prior. Continues to have lability. Patient is somewhat seclusive to bedroom but is seen in dayroom. Patient is compliant with medications and denies side effects. Patient is sleeping well. 06/20 Patient is labile on the unit. Is somewhat seen in dayroom. Patient is compliant with medications and denies side effects. [facility] Present: Andrea Centeno [facility], Susana Spencer, [facility] , Davon Tilley Jr., [facility], Mona Carranza, [facility], Roula Phan, [facility] Psych Therapist Input: Patient seen in the dayroom eating his breakfast. Patient presented with internal stimulation along with visual hallucinations. Patient denied suicidal and homicidal ideation. Patient presents with psychoagitation movements. 06/20 Patient does continue to have a labile affect but is cooperative and calm with this counselor. Patient is somewhat selecusive to self and does seem to be internally preoccupied. 06/18/17 Patient continues to be internally stimulated and slightly interactive on the unit. Patient is cooperative and calm but did not become aggitated and aggressive over the weekend. Currently patient is denying suicidal ideations and homicidal ideations. Patient will return to [facility] once Dr. Diaz deems patient appropriately. 06/25 María Elena Daley will assess pt today for potential placement. Group Spec/RT/OT/RIGGINS Present: Jeremie Gonzalez, OT, Fabrice Wiggins, RIGGINS Group Spec/RT/OT/RIGGINS Input: Patient does not attend groups 06/12/17 Patient did not attend group. 06/20 Patient does not attend group. 06/18/17 Patient does not attend group activites. Documentation Scribe: MADAY Gonzalez Date Resolved: Jul 02, 2017 Mona Carranza Jul 02, 2017 16:01
[2017-07-02 18:00] VITALS: BP 147/81; PULSE 89; RESP 16; TEMP 97.8; O2SAT 97
[2017-07-03] MEDS: PANTOPRAZOLE SOD 40 MG DELAYED RELEASE TAB PO SCH (08:08)
[2017-07-03] MEDS: GALANTAMINE HYDROBROMIDE 4 MG TAB PO SCH (08:08)
[2017-07-03] MEDS: ESCITALOPRAM OXALATE 20 MG TAB PO SCH (08:08)
[2017-07-03] MEDS: CHOLECALCIFEROL (VIT D3) 5000 UNIT CAP PO SCH (08:08)
[2017-07-03] MEDS: QUEtiapine FUMARATE 100 MG TAB PO SCH (10:27)
--- NOTE | 2017-07-03 12:38 | HHI.PYPN ---
Subjective Chief Complaint: patient demented with increased aggression in long-term Remarks Patient seen today in day room and change in patient's behavior. Remains confused and disorganized. Today there is a bed available at [facility]. Patient to be discharged today. Continue medications as already printed. Follow-up mental health services through that facility Review of Systems Except as stated in HPI: all other systems reviewed are Neg Mental Status Examination Appearance: Disheveled Consciousness: Alert Orientation: Person Speech: Incoherent (at times), Speech impediment Language: Adequate Fund of Knowledge: Poor Attention and Concentration: Easily Distracted Memory: Impaired Mood: Oppositional, Irritable (mildly) Affect: Irritable, Anxious Thought Process & Associations: Loose associations Thought Content: Bizarre thinking Hallucination Type: None Delusion Type: None Suicidal Ideation: No Suicidal Plan: No Suicidal Intention: No Homicidal Ideation: No Homicidal Plan: No Homicidal Intention: No Insight: Poor Judgment: Poor Results Vitals/IOs Vital Signs Date Time Temp Pulse Resp B/P (MAP) Pulse Ox O2 Delivery O2 Flow Rate FiO2 07/02/17 18:00 97.8 89 16 147/81 (103) 97 Intake and Output 07/03/17 07/03/17 07/04/17 08:00 16:00 00:00 Intake Total 0 ml Balance 0 ml Assessment & Plan Problem List: (1) DEMENTIA IN OTH DISEASES CLASSD ELSWHR W BEHAVIORAL DISTURB ICD Codes: F02.81 - DEMENTIA IN OTH DISEASES CLASSD ELSWHR W BEHAVIORAL DISTURB Status: Chronic (2) ALZHEIMER'S DISEASE WITH EARLY ONSET ICD Codes: G30.0 - ALZHEIMER'S DISEASE WITH EARLY ONSET Assessment & Plan Estimated LOS: days patient discharged from [facility] today it appears the insurance issues have been resolved. Continue discharge orders as written on , continue medications as prescribed on that date Justification for Cont. Inpt. Patient to be discharged today appears is a bed available at [facility] Discharge Planning To be discharged to [facility] Request HC Surrog/Guard Advoc?: Yes Nawaf Diaz MD Jul 03, 2017 12:38
== END 2017-07-03 13:10 | DRG 57 ==
LOC: NEDAMB 15:53 → NEDA 06-08 00:47 → H260 06-08 02:25 → H250 06-13 11:03 → H260 06-17 19:14 → H250 06-29 → H260 06-29 06:47 → H250 07-01 10:09
PROVIDERS: ADMIT Psychiatry & Neurology Psychiatry; ATTEND Psychiatry & Neurology Psychiatry
DX: G30.1 Alzheimer's disease with late onset (principal); F02.81 Dementia in other diseases classified elsewhere, unspecified severity, with behavioral disturbance; G93.89 Other specified disorders of brain; Z85.820 Personal history of malignant melanoma of skin; Z87.891 Personal history of nicotine dependence; Z86.73 Personal history of transient ischemic attack (TIA), and cerebral infarction without residual deficits; F32.9 Major depressive disorder, single episode, unspecified; Z85.828 Personal history of other malignant neoplasm of skin; E87.6 Hypokalemia; R47.9 Unspecified speech disturbances
CPT/HCPCS: 70450; 80048; 80053; 80061; 80307; 81001; 83036; 84439; 84443; 85025; 93005; J1200; J1630; J2060

== ENCOUNTER 2017-09-23 08:18 | Emergency (ER) | payer MEDICARE, OTHER ==
[~2017-09-23] VITALS: Ht 167.6 cm; Wt 68.0 kg
[~2017-09-23 08:18] MED LIST: ALPR0.5T3 PO; CHOL5000 PO; ESCI20TA PO; GALA16CA PO; GALA4TAB PO; PANT40TA3 PO; QUET1TAB7 PO; QUET1TAB8 PO
[2017-09-23 08:38] VITALS: BP 171/86; PULSE 99; RESP 16; O2SAT 99
[2017-09-23] MEDS ORDERED: TETANUS/DIPHTHERIA TOXOID ADULT 0.5 ML VIAL IM ONE (09:00)
[2017-09-23] MEDS ORDERED: QUET1TAB10 PO (09:12)
[2017-09-23] MEDS ORDERED: DIVA500T3 PO (09:12)
[2017-09-23] MEDS ORDERED: LORA-474 PO (09:12)
[2017-09-23] MEDS ORDERED: HALO1TAB PO (09:12)
[2017-09-23] MEDS ORDERED: POTA-163 PO (09:12)
--- NOTE | 2017-09-23 09:22 | RADRPT ---
EXAM DATE/TIME: 09/23/2017 09:09 [facility] COMPARISON: CT BRAIN W/O CONTRAST, June 07, 2017, 18:10. INDICATIONS : Fall hit head rt side. RADIATION DOSE: 37.68 CTDIvol (mGy) MEDICAL HISTORY : Alzheimer's SURGICAL HISTORY : None. ENCOUNTER: Initial ACUITY: 1 day PAIN SCALE: 3/10 LOCATION: Right cranial above eye. TECHNIQUE: Multiple contiguous axial images were obtained of the head. Using automated exposure control and adj ustment of the mA and/or kV according to patient size, radiation dose was kept as low as reasonably a chievable to obtain optimal diagnostic quality images. DICOM format image data is available electro nically for review and comparison. FINDINGS: CEREBRUM: Moderate central and cortical atrophy with vein 9 mm subdural hygroma new from comparison study. The re is no parenchymal hemorrhage or acute infarction. POSTERIOR FOSSA: Posterior fossa shows mild atrophy as well. EXTRACRANIAL: The visualized portion of the orbits is intact. SKULL: The calvaria is intact. No evidence of skull fracture. CONCLUSION: Marked central and cortical atrophy with new 9 mm subdural hygroma. This is associated with mild cor tical mass effect. Raymundo Lama MD FACR on September 23, 2017 at 9:19 Board Certified Radiologist. This report was verified electronically.
--- NOTE | 2017-09-23 09:45 | RADRPT ---
EXAM DATE/TIME: 09/23/2017 09:09 [facility] COMPARISON: No previous studies available for comparison. INDICATIONS : Fall injury to right forehead. RADIATION DOSE: 15.55 CTDIvol (mGy) MEDICAL HISTORY : Alzheimer's SURGICAL HISTORY : None. ENCOUNTER: Initial ACUITY: 1 day PAIN SCALE: 3/10 LOCATION: neck TECHNIQUE: Volumetric scanning of the cervical spine was performed. Multiplanar reconstructions in the sagittal, coronal and oblique axial planes were performed. Using automated exposure control and adjustment o f the mA and/or kV according to patient size, radiation dose was kept as low as reasonably achievable to obtain optimal diagnostic quality images. DICOM format image data is available electronically f or review and comparison. FINDINGS: There is reversal of the normal cervical lordosis. Mild degenerative changes are seen at C1 and C2. C2-C3: The bony spinal canal is normal in size. No evidence of disc bulge or herniation. The neural forami na are bilaterally patent. C3-C4: Mild facet disease is present without significant stenosis. C4-C5: Mild uncinate ridging is present with minimal right-sided neural foramina encroachment. C5-C6: Malaise and ridging with minimal left-sided neural foraminal encroachment C6-C7: Malaise and ridging without significant stenosis C7-T1: The bony spinal canal is normal in size. No evidence of disc bulge or herniation. The neural forami na are bilaterally patent. CONCLUSION: Reversal of the normal cervical lordosis without fracture or significant stenosis Raymundo Lama MD FACR on September 23, 2017 at 9:42 Board Certified Radiologist. This report was verified electronically.
--- NOTE | 2017-09-23 10:13 | PD ---
HPI Chief Complaint: Fall Time Seen by Provider: 08:46 Travel History International Travel<30 days: No Contact w/Intl Traveler<30days: No Traveled to known affect area: No History of Present Illness HPI 67-year-old male arrives by EMS after he stumbled while at the [facility] and struck his forehead against the fireplace mantle. Patient has dementia and history is limited that given to EMS by the [facility] staff. Reportedly he was agitated en route to the ER. PFSH Past Medical History Alzheimer's Disease: Yes Anxiety: Yes Depression: Yes Dementia: Yes Diminished Hearing: No Headaches: No Immunizations Current: No Tetanus Vaccination: Unknown Influenza Vaccination: No Social History Alcohol Use: No Tobacco Use: No Substance Use: No Allergies-Medications (Allergen,Severity, Reaction): Coded Allergies: No Known Allergies (Unverified Adverse Reaction, Unknown, 09/23/17) Reported Meds & Prescriptions Reported Meds & Active Scripts Active Reported Quetiapine (Quetiapine Fumarate) 300 Mg Tab 150 Mg PO BID Haloperidol 1 Mg Tab 1 Mg PO TID Divalproex ER (Divalproex Sodium) 500 Mg Tab 500 Mg PO DAILY Ativan (Lorazepam) 1 Mg Tab 1 Mg PO BID PRN Potassium Chloride ER (Potassium Chloride) 20 Meq Tab 20 Meq PO DAILY Review of Systems ROS Limitations: Clinical Condition Physical Exam Narrative GENERAL: 67-year-old male well-nourished well-developed mild distress Vital Signs Date Time Temp Pulse Resp B/P (MAP) Pulse Ox O2 Delivery O2 Flow Rate FiO2 09/23/17 09:01 18 100 Room Air 09/23/17 08:38 99 16 171/86 (114) 99 SKIN: Warm and dry. HEAD: Atraumatic. Normocephalic. EYES: Pupils equal and round. No scleral icterus. No injection or drainage. ENT: No nasal bleeding or discharge. Mucous membranes pink and moist. NECK: Trachea midline. No JVD. CARDIOVASCULAR: Regular rate and rhythm. RESPIRATORY: No accessory muscle use. Clear to auscultation. Breath sounds equal bilaterally. GASTROINTESTINAL: Abdomen soft, non-tender, nondistended. Hepatic and splenic margins not palpable. MUSCULOSKELETAL: Extremities without clubbing, cyanosis, or edema. No obvious deformities. NEUROLOGICAL: Awake and alert. No obvious cranial nerve deficits. Motor grossly within normal limits. Five out of 5 muscle strength in the arms and legs. Normal speech. PSYCHIATRIC: Appropriate mood and affect; insight and judgment normal. Data Data Last Documented VS Vital Signs Date Time Temp Pulse Resp B/P (MAP) Pulse Ox O2 Delivery O2 Flow Rate FiO2 09/23/17 10:19 98.3 09/23/17 09:01 18 100 Room Air 09/23/17 08:38 99 171/86 (114) Orders Orders Ct Brain W/O Iv Contrast(Rout) (09/23/17 08:46) Tetanus/Diphtheria Tox Adult (Tetanus/Di (09/23/17 09:00) Ct Cerv Spine W/O Contrast (09/23/17 ) Ed Discharge Order (09/23/17 10:56) MDM Medical Decision Making Medical Screen Exam Complete: Yes Emergency Medical Condition: Yes Medical Record Reviewed: Yes Differential Diagnosis ICH, contusion, laceration, fall, hip fracture, abrasion Narrative Course Last Impressions Head CT 09/23/17 0846 Signed Impressions: Service Date/Time: Saturday, September 23, 2017 09:09 - CONCLUSION: Marked central and cortical atrophy with new 9 mm subdural hygroma. This is associated with mild cortical mass effect. Raymundo Lama MD FACR Cervical Spine CT 09/23/17 0000 Signed Impressions: Service Date/Time: Saturday, September 23, 2017 09:09 - CONCLUSION: Reversal of the normal cervical lordosis without fracture or significant stenosis Raymundo Lama MD FACR Laceration repaired by me at the bedside Patient to return on days for staple removal Procedures Procedure Narrative LACERATION LOCATION: R temporal LENGTH: 3 NUMBER OF STITCHES/JUDY: 3 REPAIR: The area of the laceration was prepped with Betadine and sterilely draped. The laceration was infiltrated with lidocaine. The wound was copiously irrigated and explored without evidence of foreign body, tendon injury or neurovascular injury. The wound was closed using judy. This was a single layer repair. A sterile dressing was applied. The patient was advised to keep the dressing clean and dry. Patient tolerated the procedure well. Diagnosis Primary Impression: Fall Qualified Codes: W19.XXXA - Unspecified fall, initial encounter Additional Impressions: Laceration of scalp Qualified Codes: S01.01XA - Laceration without foreign body of scalp, initial encounter Contusion Qualified Codes: S00.03XA - Contusion of scalp, initial encounter Referrals: [facility] TO BE REMOVED IN 9 DAYS Disposition: 01 DISCHARGE HOME Condition: Stable Young Gallagher MD Sep 23, 2017 10:13
[2017-09-23 10:19] VITALS: TEMP 98.3
== END 2017-09-23 14:01 | disposition home or self-care (01) ==
LOC: NEPE 08:18
DX: S01.01XA Laceration without foreign body of scalp, initial encounter (principal); D18.1 Lymphangioma, any site; G30.9 Alzheimer's disease, unspecified; F02.80 Dementia in other diseases classified elsewhere, unspecified severity, without behavioral disturbance, psychotic disturbance, mood disturbance, and anxiety; W18.40XA Slipping, tripping and stumbling without falling, unspecified, initial encounter; Y92.099 Unspecified place in other non-institutional residence as the place of occurrence of the external cause; Z23 Encounter for immunization
CPT/HCPCS: 12002; 70450; 72125; 90471; 90714

== ENCOUNTER 2017-10-06 19:17 | Inpatient (IN) | payer MEDICARE ==
[~2017-10-06] VITALS: Ht 167.6 cm; Wt 75.2 kg
[2017-10-06] VITALS (27 sets, daily range): BP systolic 47–101; BP diastolic 25–56; PULSE 87–122; RESP 20; TEMP 98.2; O2SAT 93–100
[~2017-10-06 19:17] MED LIST changes: -ALPR0.5T3 PO; -CHOL5000 PO; +DIVA500T3 PO; -ESCI20TA PO; -GALA16CA PO; -GALA4TAB PO; +HALO1TAB PO; +LORA-474 PO; -PANT40TA3 PO; +POTA-163 PO; +QUET1TAB10 PO; -QUET1TAB7 PO; -QUET1TAB8 PO
[2017-10-06] MEDS ORDERED: SODIUM CHLOR 0.9% 1000 ML INJ 1,000 ML IV ONE (19:25)
[2017-10-06] MEDS ORDERED: SODIUM CHLOR 0.9% 1000 ML INJ 800 ML IV ONE (19:25)
[2017-10-06] MEDS ORDERED: TERBUTALINE INJ 1 MG/ML AMP SQ PRN (19:45)
[2017-10-06] MEDS: DOPamine 800 MG/500 ML INJ 500 ML IV PRN (19:52)
--- NOTE | 2017-10-06 20:21 | PD ---
Physical Exam Time Seen by Provider: 19:30 Narrative Please refer to my attending is documentation for details during the patient's current visit. Data Data Last Documented VS Vital Signs Date Time Temp Pulse Resp B/P (MAP) Pulse Ox O2 Delivery O2 Flow Rate FiO2 10/06/17 20:11 108 63/30 (41) 10/06/17 20:05 97 10/06/17 19:22 20 Orders Orders Electrocardiogram (10/06/17:25) Complete Blood Count With Diff (10/06/17:) Comprehensive Metabolic Panel (10/06/17:25) Prothrombin Time / Inr (Pt) (10/06/17:25) Act Partial Throm Time (Ptt) (10/06/17:25) Lactic Acid Sepsis Protocol (10/06/17) Lipase (10/06/17:25) Troponin I (10/06/17:) Urinalysis - C+S If Indicated (10/06/17:25) Blood Culture (10/06/17:25) Chest, Single Ap (10/06/17:25) Blood Glucose (10/06/17:25) Ecg Monitoring (10/06/17:25) Iv Access Insert/Monitor (10/06/17:25) Oximetry (10/06/17:25) Oxygen Administration (10/06/17:25) Ct Brain W/O Iv Contrast(Rout) (10/06/17 19:25) Sodium Chlor 0.9% 1000 Ml Inj (Ns 1000 M (10/06/17 19:25) Sodium Chlor 0.9% 1000 Ml Inj (Ns 1000 M (10/06/17 19:25) ^ Infusion (10/06/17 ) Dopamine 800 Mg/500 Ml Inj (Dopamine 800 (10/06/17 19:45) Terbutaline Inj (Brethine Inj) (10/06/17 19:45) Admit Order (Ed Use Only) (10/06/17 20:16) Labs Laboratory Tests Test 10/06/17 19:44 10/06/17 19:51 MDM Medical Record Reviewed: Yes Supervised Visit with EDMAR: No Narrative Course Patient's blood pressure was found to be systolic in the 50s with diastolic the 30s. My attending is involved in a trauma alert for another patient. I have discussed this with her. We will start the patient on dopamine as he is already maxed out on Levophed. Carotid pulse remains palpable. A third liter of normal saline IV boluses started. Patient is a full code. I have attempted several times to contact Amber Mckinney, DCF product support sales representative for the patient. Her voice is full and she is not answering. I then tried contacting Milton, her audit clerks supervisor who did not answer his phone. I left a message with him to call in regards to the patient. I contacted a third number of Damaris, the department secretary but the voicemail did not say her name so a message was not left. [address] Steven, auto body repair estimator it operations specialist. Patient will be admitted to his service. Diagnosis Primary Impression: Cardiac arrest Condition: Stable Maryann Alcantar Oct 06, 2017 20:21
[2017-10-06 20:33] LABS: HEMATOCRIT 51.5 % (39.0-51.0); HEMOGLOBIN 15.5 GM/DL (13.0-17.0); MEAN CELL VOLUME 96.3 FL (80.0-100.0); MEAN CORPUSCULAR HEMOGLOBIN 28.9 PG (27.0-34.0); MEAN PLATELET VOLUME 11.7 FL (7.0-11.0); PLATELET COUNT 182 TH/MM3 (150-450); RED BLOOD COUNT 5.35 MIL/MM3 (4.50-5.90); RED CELL DISTRIBUTION WIDTH 16.4 % (11.6-17.2); WHITE BLOOD COUNT 20.6 TH/MM3 (4.0-11.0)
[2017-10-06 20:38] LABS: ALBUMIN 2.4 GM/DL (3.4-5.0); ALKALINE PHOSPHATASE 89 U/L (45-117); ALT (GPT) 698 U/L (12-78); AST (GOT) 1559 U/L (15-37); BLOOD UREA NITROGEN 141 MG/DL (7-18); CALCIUM 9.2 MG/DL (8.5-10.1); CHLORIDE 137 MEQ/L (98-107); CREATININE 7.83 MG/DL (0.60-1.30); GLOMERULAR FILTRATION RATE 7 ML/MIN (>89); GLUCOSE,RANDOM 156 MG/DL (74-106); TOTAL BILIRUBIN ADULT 1.9 MG/DL (0.2-1.0)
[2017-10-06 20:42] LABS: SODIUM (NA) 182 MEQ/L (136-145)
[2017-10-06 20:43] LABS: TROPONIN I 1.04 NG/ML (0.02-0.05)
[2017-10-06 20:43] LABS: LACTIC ACID SEPSIS PROTOCOL 13.8 mmol/L (0.4-2.0)
[2017-10-06] MEDS ORDERED: LORazepam 1 MG TAB PO PRN (20:45)
[2017-10-06 20:54] LABS: AMORPHOUS SEDIMENT, URINE MOD; BACTERIA, URINE RARE /hpf; BILIRUBIN, URINE NEG (NEG); BLOOD, URINE MOD (NEG); GLUCOSE,URINE NEG (NEG); KETONE, URINE NEG (NEG); NITRITE,URINE NEG (NEG); SPERM, URINE FEW; URINE COLOR YELLOW (YELLW/STRAW); URINE LEUKOCYTE ESTERASE SMALL (NEG)
[2017-10-06] MEDS ORDERED: RESP: ALBUTEROL 2.5 MG/IPRATROPIUM 0.5 MG NEB (PRN) INH (21:00)
[2017-10-06] MEDS ORDERED: MORPHINE SULFATE 4 MG/ML INJ IV PUSH PRN (21:00)
[2017-10-06] MEDS: SODIUM CHLORIDE 0.9% FLUSH 10 ML FLUSH IV FLUSH SCH (21:00)
[2017-10-06] MEDS ORDERED: DEXTROSE 5% IN WATE 1000ML INJ 1,000 ML IV ONE ×3 (21:00)
[2017-10-06] MEDS ORDERED: LACTULOSE SYRUP 20 GM/30 ML CUP PO PRN (21:00)
[2017-10-06] MEDS ORDERED: MAGNESIUM HYDROXIDE SUSP 30 ML CUP PO PRN (21:00)
[2017-10-06] MEDS ORDERED: SODIUM CHLORIDE 0.9% FLUSH 10 ML FLUSH IV FLUSH PRN (21:00)
[2017-10-06] MEDS: DOCUSATE SODIUM 50 MG/SENNA 8.6 MG TAB PO SCH (21:00)
[2017-10-06] MEDS ORDERED: BISACODYL 10 MG SUPP RECTAL PRN (21:00)
[2017-10-06] MEDS ORDERED: MIDAZOLAM HCL 2 MG/2 ML VIAL IV PUSH PRN (21:00)
[2017-10-06] MEDS ORDERED: ONDANSETRON HCL 4 MG/2 ML VIAL IV PUSH PRN (21:00)
[2017-10-06] MEDS ORDERED: SENNOSIDES 8.6 MG TAB PO PRN (21:00)
[2017-10-06] MEDS ORDERED: fentaNYL DRIP 250 ML IV PRN (21:00)
[2017-10-06] MEDS ORDERED: FAMOTIDINE 20 MG/2 ML VIAL IV PUSH SCH (21:00)
[2017-10-06] MEDS ORDERED: MISCELLANEOUS NURSING INFORMATION XX SCH (21:00)
[2017-10-06] MEDS ORDERED: ACETAMINOPHEN 325 MG TAB PO PRN (21:00)
[2017-10-06] MEDS ORDERED: MIDAZOLAM 100 MG/100 ML INJ 100 ML IV PRN (21:00)
[2017-10-06] MEDS: QUEtiapine FUMARATE 300 MG TAB PO SCH (21:00)
[2017-10-06] MEDS ORDERED: CHLORHEXIDINE GLUCONATE 2 % 1 PACK (2 CLOTHS) TOP PRN (21:00)
--- NOTE | 2017-10-06 21:02 | RADRPT ---
EXAM DATE/TIME: 10/06/2017 20:00 [facility] COMPARISON: No previous studies available for comparison. INDICATIONS : Evaluate ET tube placement. MEDICAL HISTORY : None. SURGICAL HISTORY : None. ENCOUNTER: Initial ACUITY: 1 day PAIN SCORE: Non-responsive. LOCATION: Bilateral chest FINDINGS: Endotracheal tube tip in satisfactory position. Right basilar airspace disease. No effusion or pneumo thorax. Heart size normal. CONCLUSION: 1. Endotracheal tube in good position. Joshua Mcgovern MD on October 06, 2017 at 20:59 Board Certified Radiologist. This report was verified electronically.
[2017-10-06 21:27] LABS: BANDS 10 % (0-6); LYMPHOCYTES 26 % (9-44); METAMYELOCYTES 1 % (0-1); MONOCYTES 6 % (0-8); POLYS (SEG NEUTROPHILS) 57 % (16-70)
--- NOTE | 2017-10-06 21:39 | HHI.HP ---
HPI Service Critical Care Medicine Primary Care Physician Unknown Admission Diagnosis S/P CARDIAC ARREST Diagnosis: Travel History International Travel<30 Days: No Contact w/Intl Traveler <30 Da: No Traveled to Known Affected Are: No History of Present Illness 67-year-old unfortunate gentleman who is a resident of a retirement due to advanced Alzheimer dementia, psychosis, depressions and anxiety presents status post cardiac arrest. The patient has no family relatives in his decision-maker is Amber Mckinney [facility] sales representative leather goods for the patient. Per report in chart documentation he was last seen normal 5 minutes prior the vent at the retirement when he was suddenly found unresponsive. On EMS arrival the CPR was in progress by the staff. The patient was intubated and regain spontaneous circulation shortly after. Review of Systems ROS Unable to obtain patient's unresponsive and intubated Past Family Social History Allergies: Coded Allergies: No Known Allergies (Unverified Adverse Reaction, Unknown, 09/23/17) Past Medical History Psychosis Alzheimer dementia Depressions Anxiety Past Surgical History Unobtainable Reported Medications Reported Meds & Active Scripts Active Reported Ativan (Lorazepam) 1 Mg Tab 1 Mg PO Q8H PRN Aspirin 325 Mg Tab 325 Mg PO DAILY Keppra (Levetiracetam) 1,000 Mg Tab 500 Mg PO BID Quetiapine (Quetiapine Fumarate) 300 Mg Tab 150 Mg PO BID Haloperidol 1 Mg Tab 1 Mg PO TID Ativan (Lorazepam) 1 Mg Tab 1 Mg PO BID PRN Active Ordered Medications Current Medications Medications (Trade) Dose Ordered Sig/Zaida Route PRN Reason Start Time Stop Time Status Last Admin Dose Admin Dopamine HCl/ Dextrose 500 ml @ 0 mls/hr TITRATE PRN IV Blood Pressure Management 10/06/17 19:45 10/06/17 19:52 Terbutaline Sulfate (Brethine Inj) 1 mg UNSCH PRN SQ For Extravasation 10/06/17 19:45 Divalproex Sodium (Depakote Er) 500 mg DAILY PO 10/07/17 09:00 Haloperidol (Haldol) 1 mg TID PO 10/07/17 09:00 Lorazepam (Ativan) 1 mg BID PRN PO for severe anxiety or dyspnea 10/06/17 20:45 Quetiapine Fumarate (SEROquel) 150 mg BID PO 10/06/17 21:00 Sodium Chloride (NS Flush) 2 ml UNSCH PRN IV FLUSH FLUSH AFTER USING IV ACCESS 10/06/17 21:00 Sodium Chloride (NS Flush) 2 ml BID IV FLUSH 10/06/17 21:00 Acetaminophen (Tylenol) 650 mg Q6H PRN PO PAIN 1-5 AND/OR FEVER >101F 10/06/17 21:00 Morphine Sulfate (Morphine Inj) 2 mg Q2H PRN IV PUSH PAIN SCALE 6 TO 10 10/06/17 21:00 Famotidine (Pepcid Inj) 20 mg Q12HR IV PUSH 10/06/17 21:00 Midazolam HCl (Versed Inj) 2 mg Q1H PRN IV PUSH SEDATION 10/06/17 21:00 Artificial Tears (Tears Naturale Opth Soln) 1 drop TID EACH EYE 10/07/17 09:00 Ondansetron HCl (Zofran Inj) 4 mg Q6H PRN IV PUSH NAUSEA OR VOMITING 10/06/17 21:00 Albuterol/ Ipratropium (Duoneb Neb) 1 ampule Q6HR NEB INH 10/06/17 22:00 Albuterol/ Ipratropium (Duoneb Neb) 1 ampule Q2HR NEB PRN INH WHEEZING 10/06/17 21:00 Heparin Sodium (Porcine) (Heparin Inj) 5,000 units Q8HR SQ 10/06/17 22:00 Miscellaneous Information 1 [id number] XX 10/06/17 21:00 Chlorhexidine Gluconate (Chlorhexidine 2% Cloth) 3 pack Taper DAILY@04 TOP 10/07/17 04:00 10/03/18 03:59 Chlorhexidine Gluconate (Chlorhexidine 2% Cloth) 3 pack UNSCH PRN TOP HYGIENIC CARE 10/06/17 21:00 Senna/Docusate Sodium (Emily-Colace) 1 tab BID PO 10/06/17 21:00 Magnesium Hydroxide (Milk Of Magnesia Liq) 30 ml Q12H PRN PO Mild constipation 10/06/17 21:00 Sennosides (Senokot) 17.2 mg Q12H PRN PO Moderate constipation 10/06/17 21:00 Bisacodyl (Dulcolax Supp) 10 mg DAILY PRN RECTAL SEVERE CONSITIPATION 10/06/17 21:00 Lactulose (Lactulose Liq) 30 ml DAILY PRN PO SEVERE CONSITIPATION 10/06/17 21:00 Chlorhexidine Gluconate (Peridex 0.12% Liq) 15 ml BID@08,20 MT 10/07/17 08:00 Midazolam HCl 100 ml @ 2 mls/hr TITRATE PRN IV SEDATION 10/06/17 21:00 Fentanyl Citrate 250 ml @ 5 mls/hr TITRATE PRN IV SEDATION 10/06/17 21:00 Dextrose 1,000 ml @ 125 mls/hr Q8H IV 10/06/17 21:00 Vasopressin 40 units/Dextrose 100 ml @ 1.5 mls/hr Q24H IV 10/06/17 22:00 10/06/17 21:19 Family History Unobtainable Social History Unobtainable Physical Exam Vital Signs Vital Signs Date Time Temp Pulse Resp B/P (MAP) Pulse Ox O2 Delivery O2 Flow Rate FiO2 10/06/17 21:36 106 62/35 (44) 100 10/06/17 21:30 102 63/28 (40) 10/06/17 21:20 110 52/25 (34) 100 10/06/17 21:19 110 49/30 10/06/17 21:15 110 49/30 (36) 100 10/06/17 21:10 109 47/28 (34) 100 10/06/17 20:58 108 54/28 (37) 100 10/06/17 20:50 109 58/27 (37) 100 10/06/17 20:45 109 53/32 (39) 100 10/06/17 20:30 108 61/33 (42) 100 10/06/17 20:26 110 58/34 (42) 99 10/06/17 20:22 110 57/32 (40) 99 10/06/17 20:18 109 61/34 (43) 98 10/06/17 20:16 99 10/06/17 20:16 99 10/06/17 20:11 108 63/30 (41) 10/06/17 20:05 107 54/28 (37) 97 10/06/17 20:01 108 56/34 (41) 98 10/06/17 19:57 110 61/38 (46) 98 10/06/17 19:52 58 40/111 10/06/17 19:50 111 58/40 (46) 10/06/17 19:40 116 79/54 (62) 10/06/17 19:35 120 56/30 (39) 10/06/17 19:22 98.2 122 20 51/32 (38) 93 Physical Exam GENERAL: Well-nourished, well-developed patient. Unresponsive and intubated SKIN: Warm and dry. HEAD: Normocephalic. EYES: No scleral icterus. No injection or drainage. NECK: Supple, trachea midline. No JVD or lymphadenopathy. CARDIOVASCULAR: Regular rate and rhythm without murmurs, gallops, or rubs. RESPIRATORY: Breath sounds equal bilaterally. No accessory muscle use. GASTROINTESTINAL: Abdomen soft, non-tender, nondistended. MUSCULOSKELETAL: No cyanosis, or edema. BACK: Nontender without obvious deformity. NEURO EXAM: GCS: 3T Mental Status: The patient is unresponsive and intubated, pupils are 2 mm and sluggish bilaterally. Laboratory Laboratory Tests Test 10/06/17 19:44 10/06/17 19:51 10/06/17 20:08 White Blood Count 20.6 Red Blood Count 5.35 Hemoglobin 15.5 Hematocrit 51.5 Mean Corpuscular Volume 96.3 Mean Corpuscular Hemoglobin 28.9 Mean Corpuscular Hemoglobin Concent 30.0 Red Cell Distribution Width 16.4 Platelet Count 182 Mean Platelet Volume 11.7 CBC Comment AUTO DIFF Differential Total Cells Counted 100 Neutrophils % (Manual) 57 Band Neutrophils % 10 Lymphocytes % 26 Monocytes % 6 Neutrophils # (Manual) 14.0 Metamyelocytes 1 Differential Comment FINAL DIFF MANUAL Platelet Estimate NORMAL Platelet Morphology Comment ENLARGED Blood Urea Nitrogen 141 Creatinine 7.83 Random Glucose 156 Total Protein 7.0 Albumin 2.4 Calcium Level 9.2 Alkaline Phosphatase 89 Aspartate Amino Transf (AST/SGOT) 1559 Alanine Aminotransferase (ALT/SGPT) 698 Total Bilirubin 1.9 Sodium Level 182 Potassium Level 4.5 Chloride Level 137 Carbon Dioxide Level 19.0 Anion Gap 26 Estimat Glomerular Filtration Rate 7 Troponin I 1.04 Lipase 170 Lactic Acid Level 13.8 Urine Color YELLOW Urine Turbidity CLOUDY Urine pH 6.0 Urine Specific [place] 1.026 Urine Protein 100 Urine Glucose (UA) NEG Urine Ketones NEG Urine Occult Blood MOD Urine Nitrite NEG Urine Bilirubin NEG Urine Urobilinogen LESS THAN 2.0 Urine Leukocyte Esterase SMALL Urine RBC 7 Urine WBC 47 Urine Amorphous Sediment MOD Urine Bacteria RARE Urine Sperm FEW Microscopic Urinalysis Comment CATH-CULTURE IND Date/Time Source Procedure Growth Status 10/06/17 19:40 Blood Peripheral Aerobic Blood Culture Pending Received 10/06/17 19:40 Blood Peripheral Anaerobic Blood Culture Pending Received 10/06/17 20:08 Urine Clean Catch Urine Culture Pending Received Result Diagram: 10/06/17194310/06/171943 Imaging Last 24 hours Impressions Chest X-Ray 10/06/171924 Signed Impressions: Service Date/Time: Friday, October 06, 2017 20:00 - CONCLUSION: 1. Endotracheal tube in good position. Joshua Mcgovern MD Septic Shock Reassessment Septic shock perfusion: reassessment completed Caprini VTE Risk Assessment Caprini VTE Risk Assessment: Mod/High Risk (score >= 2) Caprini Risk Assessment Model Point Value = 1 Point Value = 2 Point Value = 3 Point Value = 5 Age 41-60 Minor surgery BMI > 25 kg/m2 Swollen legs Varicose veins or History of unexplained or recurrent spontaneous Oral contraceptives or hormone replacement Sepsis (< 1 month) Serious lung disease, including pneumonia (< 1 month) Abnormal pulmonary function Acute myocardial infarction Congestive heart failure (< 1 month) History of inflammatory bowel disease Medical patient at bed rest Age 61-74 Arthroscopic surgery Major open surgery (> 45 min) Laparoscopic surgery (> 45 min) Malignancy Confined to bed (> 72 hours) Immobilizing plaster cast Central venous access Age >= 75 History of VTE Family history of VTE Factor V Leiden Prothrombin [id number] Lupus anticoagulant Anticardiolipin antibodies Elevated serum homocysteine Heparin-induced thrombocytopenia Other congenital or acquired thrombophilia Stroke (< 1 month) Elective arthroplasty Hip, pelvis, or leg fracture Acute spinal cord injury (< 1 month) Prophylaxis Regimen Total Risk Factor Score Risk Level Prophylaxis Regimen 0-1 Low Early ambulation 2 Moderate Order ONE of the following: *Sequential Compression Device (SCD) *Heparin 5000 units SQ BID 3-4 Higher Order ONE of the following medications: *Heparin 5000 units SQ TID *Enoxaparin/Lovenox 40 mg SQ daily (WT < 150 kg, CrCl > 30 mL/min) *Enoxaparin/Lovenox 30 mg SQ daily (WT < 150 kg, CrCl > 10-29 mL/min) *Enoxaparin/Lovenox 30 mg SQ BID (WT < 150 kg, CrCl > 30 mL/min) AND/OR *Sequential Compression Device (SCD) 5 or more Highest Order ONE of the following medications: *Heparin 5000 units SQ TID (Preferred with Epidurals) *Enoxaparin/Lovenox 40 mg SQ daily (WT < 150 kg, CrCl > 30 mL/min) *Enoxaparin/Lovenox 30 mg SQ daily (WT < 150 kg, CrCl > 10-29 mL/min) *Enoxaparin/Lovenox 30 mg SQ BID (WT < 150 kg, CrCl > 30 mL/min) AND *Sequential Compression Device (SCD) Assessment and Plan Assessment and Plan Respiratory failure - Status post cardiac arrest - Intubated for an airway protection - Vent bundle - ABG and CXR daily - No weaning until neurologically improved Altered mental status - Post arrest - Patient supposedly on home hospice care, unknown CODE STATUS which precludes him from initiation of hypothermia protocol - CT head pending - Severe hypernatremia and electrolyte disbalance - Neuro checks per unit protocol - Treat underlying condition Acute kidney injury - Severe dehydration - Aggressive volume replacement with IV fluids - Strict I's and O's - Monitor electrolytes and creatinine levels Hypotension/shock - Aggressive IV fluid hydration - Dopamine/Levophed/vasopressin to keep map above 65 Anxiety/depression - Ativan - Divalproex Psychosis - Haloperidol - Quetiapine DVT GI prophylaxis - Teds SCDs - Subcutaneous heparin - Pepcid Critical Care: The total critical care time was 35 minutes. Time to perform other separately billable procedures was not included in the critical care time. Rm Steven MD Oct 06, 2017 9:39 pm
[2017-10-06] MEDS ORDERED: VASOPRESSIN INJ 40 UNITS in DEXTROSE 5% IN WATER 100ML INJ 98 ML IV SCH ×2 (22:00)
[2017-10-06] MEDS: HEPARIN SODIUM - SQ 10,000 UNITS/ML VIAL SQ SCH (22:00)
[2017-10-06] MEDS ORDERED: LORA-474 PO (22:12)
[2017-10-06] MEDS ORDERED: ASPI-183 PO (22:12)
[2017-10-06] MEDS ORDERED: KEPP10002 PO (22:12)
[2017-10-06] MEDS: RESP: ALBUTEROL 2.5 MG/IPRATROPIUM 0.5 MG NEB (SCH) INH (22:22)
[2017-10-06 22:23] LABS: INTERNATIONAL NORMALIZED RATIO 2.4 RATIO; PROTHROMBIN TIME - PATIENT 24.6 SEC (9.8-11.6)
[2017-10-06] MEDS: DEXTROSE 5% IN WATE 1000ML INJ 1,000 ML IV SCH (23:18)
[2017-10-07] VITALS (20 sets, daily range): BP systolic 105–128; BP diastolic 54–66; PULSE 75–102; RESP 0–15; TEMP 96–98.7; O2SAT 93–100
--- NOTE | 2017-10-07 00:13 | PD.PROCEDR ---
Procedure Note Procedure Centerline placement A time-out was completed verifying correct patient, procedure, site, positioning , and special equipment if applicable. The patient was placed in a dependent position appropriate for central line placement based on the vein to be cannulated. The patients right shoulder was prepped and draped in sterile fashion. 1% Lidocaine was used to anesthetize the surrounding skin area. A triple lumen 9-[place] catheter was introduced into the the right subclavian vein using the Seldinger technique. The catheter was threaded smoothly over the guide wire and appropriate blood return was obtained. Each lumen of the catheter was evacuated of air and flushed with sterile saline. The catheter was then sutured in place to the skin and a sterile dressing applied. Perfusion to the extremity distal to the point of catheter insertion was checked and found to be adequate. Estimated Blood Loss: 1ml The patient tolerated the procedure well and there were no complications. Rm Steven MD Oct 07, 2017 12:13 am
--- NOTE | 2017-10-07 00:49 | RADRPT ---
EXAM DATE/TIME: 10/07/2017 00:24 [facility] COMPARISON: CHEST SINGLE AP, October 06, 2017, 20:00. INDICATIONS : Right subclaviann central line placement. MEDICAL HISTORY : None. SURGICAL HISTORY : None. ENCOUNTER: Subsequent ACUITY: 2 days PAIN SCORE: Non-responsive. LOCATION: Bilateral chest FINDINGS: A single view of the chest demonstrates the lungs to be symmetrically aerated with some developing ai rspace disease in the right base. No effusions. Heart size is normal. Endotracheal tube remains appro priately positioned above the isha. Interval placement of a right subclavian central venous cathete r with the tip projecting over the central venous system. No pneumothorax CONCLUSION: 1. Right subclavian central venous catheter with the tip projecting over the central venous system. N o pneumothorax. 2. Faint airspace disease developing in the right lower lobe. Saud Bond MD on October 07, 2017 at 0:45 Board Certified Radiologist. This report was verified electronically.
--- NOTE | 2017-10-07 01:11 | RADRPT ---
EXAM DATE/TIME: 10/07/2017 00:52 [facility] COMPARISON: CT BRAIN W/O CONTRAST, September 23, 2017, 9:09. INDICATIONS : Altered mental status; post code. RADIATION DOSE: 56.35 CTDIvol (mGy) MEDICAL HISTORY : Non-responsive. SURGICAL HISTORY : Non-responsive. ENCOUNTER: Initial ACUITY: 1 day PAIN SCALE: Non-responsive LOCATION: cranial TECHNIQUE: Multiple contiguous axial images were obtained of the head. Using automated exposure control and adj ustment of the mA and/or kV according to patient size, radiation dose was kept as low as reasonably a chievable to obtain optimal diagnostic quality images. DICOM format image data is available electro nically for review and comparison. FINDINGS: CEREBRUM: Ventricles remain prominent but stable. Right-sided subdural hygroma seen previously is still present but smaller previously measuring 9 mm in depth and now measures approximately 5 mm in. Minimal mass effect on the adjacent cerebral hemisphere. No evidence of midline shift, mass lesion, hemorrhage or acute infarction. No extra-axial fluid collections are seen. POSTERIOR FOSSA: The cerebellum and brainstem are intact. The 4th ventricle is midline. The cerebellopontine angle i s unremarkable. EXTRACRANIAL: The visualized portion of the orbits is intact. The fluid density in the nasopharynx and ethmoid air cells may be associated with the recent resuscitory efforts. SKULL: The calvaria is intact. No evidence of skull fracture. CONCLUSION: 1. Stable ventricular prominence. 2. 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 There is still some mass effect on the adjacent cere bral hemisphere, however. 3. Fluid density in the ethmoid air cells and nasopharynx bilaterally may be associated with the rece nt resuscitory efforts. Saud Bond MD on October 07, 2017 at 1:05 Board Certified Radiologist. This report was verified electronically.
[2017-10-07] MEDS: NOREPINEPHRINE-DEXTROSE DRIP 250 ML IV PRN ×3 (01:15→09:30)
[2017-10-07] MEDS ORDERED: TERBUTALINE INJ 1 MG/ML AMP SQ PRN ×2 (03:15→12:45)
[2017-10-07] MEDS: RESP: ALBUTEROL 2.5 MG/IPRATROPIUM 0.5 MG NEB (SCH) INH ×6 (03:31→20:35)
[2017-10-07] MEDS: CHLORHEXIDINE GLUCONATE 2 % 1 PACK (2 CLOTHS) TOP SCH (04:00)
[2017-10-07 04:59] LABS: INTERNATIONAL NORMALIZED RATIO 2.5 RATIO; PROTHROMBIN TIME - PATIENT 25.2 SEC (9.8-11.6)
[2017-10-07] MEDS: DOPamine 800 MG/500 ML INJ 500 ML IV PRN (06:02)
[2017-10-07] MEDS: DEXTROSE 5% IN WATE 1000ML INJ 1,000 ML IV SCH (06:03)
[2017-10-07] MEDS: HEPARIN SODIUM - SQ 10,000 UNITS/ML VIAL SQ SCH (06:04)
[2017-10-07] MEDS ORDERED: EPINEPHrine (1:1000) INJ 2 MG in DEXTROSE 5% IN WATER INJ 250 ML IV PRN ×4 (07:30→12:45)
[2017-10-07] MEDS ORDERED: fentaNYL DRIP 250 ML IV PRN (07:45)
[2017-10-07] MEDS ORDERED: PHYTONADIONE 5 MG/SWFI 5 ML ORAL SYR PO ONE (07:45)
[2017-10-07] MEDS ORDERED: RESP: ALBUTEROL 2.5 MG/3 ML NEB (PRN) NEB (07:45)
[2017-10-07] MEDS ORDERED: PROPOFOL 1000 MG/100 ML INJ 100 ML IV PRN (07:45)
--- NOTE | 2017-10-07 07:54 | HHI.CCPN ---
Subjective Remarks/Hospital Course 67-year-old unfortunate gentleman who is a resident of a snf due to advanced Alzheimer dementia, psychosis, depressions and anxiety presents status post cardiac arrest. The patient has no family relatives in his decision-maker is Amber Mckinney [facility] telecommunications sales representative for the patient. Per report in chart documentation he was last seen normal 5 minutes prior the vent at the snf when he was suddenly found unresponsive. On EMS arrival the CPR was in progress by the staff. The patient was intubated and regain spontaneous circulation shortly after. Subjective 10/07: Afebrile. Unresponsive on the ventilator. Tolerating tube feeds at goal. No bowel movement. Pupils minimally responsive with upward gaze. There is no withdrawal to pain. Objective Vital Signs Date Time Temp Pulse Resp B/P (MAP) Pulse Ox O2 Delivery O2 Flow Rate FiO2 10/07/17 06:02 92 98/55 10/07/17 04:00 96.0 14 100 10/07/17 03:32 40 Intake and Output 10/07/17 10/07/17 10/08/17 08:00 16:00 00:00 Intake Total 1770 ml Output Total 350 ml Balance 1420 ml Result Diagram: 10/06/17194310/06/171943 Other Results Microbiology Date/Time Source Procedure Growth Status 10/06/17 19:40 Blood Peripheral Aerobic Blood Culture Pending Received 10/06/17 19:40 Blood Peripheral Anaerobic Blood Culture Pending Received 10/06/17 20:08 Urine Clean Catch Urine Culture Pending Received Imaging Last Impressions Chest X-Ray 10/06/171924 Signed Impressions: Service Date/Time: Friday, October 06, 2017 20:00 - CONCLUSION: 1. Endotracheal tube in good position. Joshua Mcgovern MD Objective Remarks GENERAL: 67-year-old male currently orotracheally intubated SKIN: Warm and dry. No rash HEAD: Normocephalic. EYES: Pupils are round 3 mm bilaterally with upward gaze. + scleral icterus with conjunctival hemorrhage and scleral edema. NECK: No JVD or thyromegaly or lymphadenopathy. No carotid bruits. CARDIOVASCULAR: Regular rate and rhythm. S1, S2 no S4. Without murmurs, gallops, or rubs. RESPIRATORY: Breath sounds equal bilaterally. No accessory muscle use. GASTROINTESTINAL: Abdomen soft, non-tender, nondistended. Bowel sounds are not appreciated MUSCULOSKELETAL: No significant peripheral edema. NEURO EXAM: Patient does not withdraw to pain in bilateral upper and lower extremity. Pupils are very minimally reactive but extremely sluggish. No gag or cough. 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 EEG ordered Holding haloperidol 1 mg 3 times daily, lorazepam 1 mg as needed and Quetiapine 150 mg twice daily/home medications for depression/agitation CV: [facility] Elevated troponin Severe shock likely cardiogenic Lactic acidosis Initial troponin I 0.0. EKG revealed Serial troponins 2D echocardiogram ordered Received 3 L D5 water overnight Serial lactates until cleared Patient did not placed on targeted temperature monitoring by overnight forging operator secondary to severe end-stage dementia and currently out of window to initiate therapy at the present time Resp: Acute respiratory failure [facility] 15/600/1.1/12/19 Ventilator bundle Albuterol/ipratropium aerosols every 4 hours with albuterol aerosols every 2 hours as needed dyspnea Spontaneous breathing trials when clinically indicated Follow-up chest x-ray in a.m. GI: Elevated transaminases/bilirubin Hypoalbuminemia Likely secondary to shock liver/hypoperfusion Repeat transaminases in a.m. Check liver ultrasound and CPK and hepatitis panel Currently on Nepro at 45 cc an hour with free water 100 cc every 4 hours Famotidine for GI prophylaxis Docusate sodium/senna 1 tablet twice daily for bowel regimen Avoid hepatotoxic medication : Gordon catheter has been placed for accurate I's and O's in a critically ill patient Endo: Sliding scale insulin with Novulin R with Accu-Cheks to maintain euglycemia every 4 hours/medium protocol Check TSH Renal: Acute kidney injury Currently on D5 water at 100 cc an hour Kidney ultrasound ordered Check urine eosinophils and urine sodium/creatinine Monitor urine output Accurate I's and O's Heme: Elevated coags likely secondary to shock liver History of left-sided basal cell carcinoma/melanoma left chest/arm Vitamin K 10 mg/FFP 2 units 1 now. Recheck coags in a.m. with fibrinogen Monitor CBC daily. Follow trends ID: Placed empirically on piperacillin/tazobactam 2.25 g IV every 8 hours/renally dose with right lower lobe infiltrate Pertinent cultures 10/06 - blood cultures 2 -pending 10/06 - urine culture -pending FEN: Hypernatremia Goal is D5 water at 100 cc out over 74 hours decreased sodium back to baseline of 145. Added free water 100 cc every 4 hours for insensible losses Noted also on vasopressin, dopamine, norepinephrine drips which will affect sodium MSK: PT evaluate and treat Access -Utilize right subclavian CVL day #1 placed 09/09 Prophylaxis -GI -famotidine -DVT -SCDs/heparin subcutaneous will be held with elevated INR/PTT. Critical Care: The total critical care time was 35 minutes. Time to perform other separately billable procedures was not included in the critical care time. Addendum 6:30 AM laboratories were not reported. Recheck at 930 reported back at noon. Blood sugar is 1136. Sodium is gone from 182-137. Noted patient received multiple boluses of D5 water overnight. These are discontinued. Currently on norepinephrine, vasopressin and dopamine which are mixed in D5 water. These will be switched to normal saline. Currently in a hyperosmolar nonketotic state. Will start on insulin drip algorithm #1. Transaminases continue to rise. EEG essentially flat. Tej Escobedo MD Oct 07, 2017 07:54
[2017-10-07] MEDS: CHLORHEXIDINE 0.12% (ORAL KIT) 15 ML CUP MT SCH ×2 (08:00→19:42)
[2017-10-07] MEDS: VASOPRESSIN INJ 40 UNITS in DEXTROSE 5% IN WATER 100ML INJ 98 ML IV SCH ×4 (08:00→19:41)
[2017-10-07] MEDS ORDERED: INSULIN NovoLIN REGULAR SUPPLEMENTAL SCALE SQ SCH (08:00)
[2017-10-07] MEDS ORDERED: GLUCAGON 1 MG/ML VIAL OTHER PRN (08:00)
[2017-10-07] MEDS ORDERED: DEXTROSE 50% IN WATER 50 ML VIAL(D50) IV PUSH PRN ×2 (08:00→12:45)
[2017-10-07] MEDS ORDERED: CHLORHEXIDINE 0.12% (ORAL KIT) 15 ML CUP MT SCH (08:00)
--- NOTE | 2017-10-07 08:54 | PD ---
HPI Chief Complaint: Cardiac Complaint Time Seen by Provider: 19:23 Travel History International Travel<30 days: No Contact w/Intl Traveler<30days: No Traveled to known affect area: No History of Present Illness HPI Patient is a 67-year-old male brought in by EMS status post code at the long-term. EMS states that he was seen by staff at the long-term 5 minutes prior to being found unresponsive. CPR was performed. He received 3 doses of epi and then was found to be in V. fib and was shocked once. He had had return of circulation. Patient is intubated and unresponsive. PFSH Past Medical History Medical History: Unable to Obtain Alzheimer's Disease: Yes Anxiety: Yes Depression: Yes Dementia: Yes Diminished Hearing: No Headaches: No Immunizations Current: No Tetanus Vaccination: < 5 Years Past Surgical History Surgical History: Unable to Obtain Social History Alcohol Use: No Tobacco Use: No (TIFFANIE) Substance Use: No Allergies-Medications (Allergen,Severity, Reaction): Coded Allergies: No Known Allergies (Unverified Adverse Reaction, Unknown, 09/23/17) Reported Meds & Prescriptions Reported Meds & Active Scripts Active Reported Ativan (Lorazepam) 1 Mg Tab 1 Mg PO Q8H PRN Quetiapine (Quetiapine Fumarate) 300 Mg Tab 150 Mg PO BID Haloperidol 1 Mg Tab 1 Mg PO TID Review of Systems ROS Limitations: Clinical Condition, Altered Mental Status Physical Exam Narrative GENERAL: Unresponsive SKIN: Focused skin assessment warm/dry. HEAD: Atraumatic. Normocephalic. EYES: Pupils equal and round nonreactive. No scleral icterus. No injection or drainage. ENT: No nasal bleeding or discharge. Mucous membranes pink and moist. NECK: Trachea midline. No JVD. CARDIOVASCULAR: Regular rate and rhythm. No murmur appreciated. RESPIRATORY: No accessory muscle use. Clear to auscultation. Breath sounds equal bilaterally. GASTROINTESTINAL: Abdomen soft, non-tender, nondistended. MUSCULOSKELETAL: No obvious deformities. No clubbing. No cyanosis. No edema. NEUROLOGICAL: unresponsive Data Data Last Documented VS Vital Signs Date Time Temp Pulse Resp B/P (MAP) Pulse Ox O2 Delivery O2 Flow Rate FiO2 10/06/17 20:11 108 63/30 (41) 10/06/17 20:05 97 10/06/17 19:22 98.2 20 10/06/17 19:19 50 Orders Orders Electrocardiogram (10/06/17:25) Complete Blood Count With Diff (10/06/17:25) Comprehensive Metabolic Panel (10/06/17:) Prothrombin Time / Inr (Pt) (10/06/17:25) Act Partial Throm Time (Ptt) (10/06/17:25) Lactic Acid Sepsis Protocol (10/06/17:25) Lipase (10/06/17:25) Troponin I (10/06/17:) Urinalysis - C+S If Indicated (10/06/17:) Blood Culture (10/06/17:25) Chest, Single Ap (10/06/17:) Blood Glucose (10/06/17:) Ecg Monitoring (10/06/17:) Iv Access Insert/Monitor (10/06/17) Oximetry (10/06/17:) Oxygen Administration (10/06/17:) Ct Brain W/O Iv Contrast(Rout) (10/06/17 19:25) Sodium Chlor 0.9% 1000 Ml Inj (Ns 1000 M (10/06/17 19:25) Sodium Chlor 0.9% 1000 Ml Inj (Ns 1000 M (10/06/17 19:25) ^ Infusion (10/06/17 ) Dopamine 800 Mg/500 Ml Inj (Dopamine 800 (10/06/17 19:45) Terbutaline Inj (Brethine Inj) (10/06/17 19:45) Labs Laboratory Tests Test 10/06/17 19:44 10/06/17 19:51 10/06/17 20:08 White Blood Count 20.6 TH/MM3 Red Blood Count 5.35 MIL/MM3 Hemoglobin 15.5 GM/DL Hematocrit 51.5 % Mean Corpuscular Volume 96.3 FL Mean Corpuscular Hemoglobin 28.9 PG Mean Corpuscular Hemoglobin Concent 30.0 % Red Cell Distribution Width 16.4 % Platelet Count 182 TH/MM3 Mean Platelet Volume 11.7 FL CBC Comment AUTO DIFF Differential Total Cells Counted 100 Neutrophils % (Manual) 57 % Band Neutrophils % 10 % Lymphocytes % 26 % Monocytes % 6 % Neutrophils # (Manual) 14.0 TH/MM3 Metamyelocytes 1 % Differential Comment FINAL DIFF MANUAL Platelet Estimate NORMAL Platelet Morphology Comment ENLARGED Blood Urea Nitrogen 141 MG/DL Creatinine 7.83 MG/DL Random Glucose 156 MG/DL Total Protein 7.0 GM/DL Albumin 2.4 GM/DL Calcium Level 9.2 MG/DL Alkaline Phosphatase 89 U/L Aspartate Amino Transf (AST/SGOT) 1559 U/L Alanine Aminotransferase (ALT/SGPT) 698 U/L Total Bilirubin 1.9 MG/DL Sodium Level 182 MEQ/L Potassium Level 4.5 MEQ/L Chloride Level 137 MEQ/L Carbon Dioxide Level 19.0 MEQ/L Anion Gap 26 MEQ/L Estimat Glomerular Filtration Rate 7 ML/MIN Troponin I 1.04 NG/ML Lipase 170 U/L Lactic Acid Level 13.8 mmol/L Urine Color YELLOW Urine Turbidity CLOUDY Urine pH 6.0 Urine Specific [place] 1.026 Urine Protein 100 mg/dL Urine Glucose (UA) NEG mg/dL Urine Ketones NEG mg/dL Urine Occult Blood MOD Urine Nitrite NEG Urine Bilirubin NEG Urine Urobilinogen LESS THAN 2.0 MG/DL Urine Leukocyte Esterase SMALL Urine RBC 7 /hpf Urine WBC 47 /hpf Urine Amorphous Sediment MOD Urine Bacteria RARE /hpf Urine Sperm FEW Microscopic Urinalysis Comment CATH-CULTURE IND MDM Medical Decision Making Medical Screen Exam Complete: Yes Emergency Medical Condition: Yes Medical Record Reviewed: Yes Differential Diagnosis sepsis vs ICH vs pneumonia vs SD Narrative Course Patient is a 67-year-old male who comes in post cardiac arrest. He is intubated by EMS. IV established, labs sent. Patient is hypotensive. He started on levo fed. Given IV fluids. Covered With antibiotics. Admitted for further management. Diagnosis Primary Impression: Cardiac arrest Admitting Information Admitting Physician Requests: Admit Condition: Stable Diana Sousa MD Oct 07, 2017 08:54
[2017-10-07] MEDS ORDERED: HALOPERIDOL 1 MG TAB PO SCH (09:00)
[2017-10-07] MEDS ORDERED: DIVALPROEX SODIUM E.R. 500 MG TAB PO SCH (09:00)
[2017-10-07] MEDS: DOCUSATE SODIUM 50 MG/SENNA 8.6 MG TAB PO SCH ×2 (09:00→19:41)
[2017-10-07] MEDS: ARTIFICIAL TEARS OPTH SOLN 15 ML BTL EACH EYE SCH ×3 (09:00→17:32)
[2017-10-07] MEDS: PIPERACIL-TAZO 2.25 GM PREMIX 50 ML IV SCH ×2 (09:11→17:31)
[2017-10-07] MEDS: SODIUM CHLORIDE 0.9% FLUSH 10 ML FLUSH IV FLUSH SCH ×2 (09:12→19:42)
[2017-10-07] MEDS: levETIRAcetam 500 MG/5 ML UDC NG SCH ×2 (09:12→19:41)
[2017-10-07] MEDS: FAMOTIDINE 20 MG/2 ML VIAL IV PUSH SCH ×2 (09:12→19:42)
[2017-10-07] MEDS: QUEtiapine FUMARATE 300 MG TAB PO SCH (09:13)
[2017-10-07 11:14] LABS: AUTOMATED NEUTROPHIL # 14.7 TH/MM3 (1.8-7.7); BASOPHIL % 0.3 % (0.0-2.0); EOSINOPHIL # 0.2 TH/MM3 (0-0.4); EOSINOPHIL % 1.3 % (0.0-4.0); HEMATOCRIT 47.2 % (39.0-51.0); HEMOGLOBIN 13.7 GM/DL (13.0-17.0); LYMPH % 7.3 % (9.0-44.0); LYMPHOCYTE # 1.2 TH/MM3 (1.0-4.8); MEAN CELL VOLUME 101.6 FL (80.0-100.0); MEAN CORPUSCULAR HEMOGLOBIN 29.5 PG (27.0-34.0); MEAN PLATELET VOLUME 10.4 FL (7.0-11.0); MONO % 2.1 % (0.0-8.0); MONOCYTE # 0.3 TH/MM3 (0-0.9); PLATELET COUNT 92 TH/MM3 (150-450); RED BLOOD COUNT 4.64 MIL/MM3 (4.50-5.90); RED CELL DISTRIBUTION WIDTH 14.3 % (11.6-17.2); WHITE BLOOD COUNT 16.5 TH/MM3 (4.0-11.0)
[2017-10-07 12:02] LABS: MEAN CORPUSCULAR HGB CONC 29.1 % (32.0-36.0)
[2017-10-07 12:08] LABS: CREATININE 6.65 MG/DL (0.60-1.30)
[2017-10-07 12:09] LABS: MAGNESIUM 2.6 MG/DL (1.5-2.5); PHOSPHORUS 6.2 MG/DL (2.5-4.9); TOTAL PROTEIN 5.3 GM/DL (6.4-8.2)
[2017-10-07 12:22] LABS: CALCIUM-PROTEIN CORRECTED 6.8 MG/DL (8.5-10.1)
[2017-10-07 12:40] LABS: BANDS 31 % (0-6); CORRECTED NUCLEATED RBC 2 /100 WBC (0-0); LYMPHOCYTES 6 % (9-44); MONOCYTES 2 % (0-8); NEUTROPHIL # MANUAL DIFF 15.2 TH/MM3 (1.8-7.7); NUCLEATED RED BLOOD CELL 2 (0-0); POLYS (SEG NEUTROPHILS) 61 % (16-70)
[2017-10-07 12:42] LABS: HOWELL-JOLLY BODIES PRESENT (NONE SEEN)
[2017-10-07] MEDS ORDERED: CALCIUM GLUCONATE INJ 1 GM in SODIUM CHLORIDE 0.9% INJ 100 ML IV ONE (12:45)
[2017-10-07] MEDS ORDERED: SODIUM CHLOR 0.9% 1000 ML INJ 1,000 ML IV ONE (12:45)
[2017-10-07] MEDS ORDERED: MISC INFORMATION OTHER ONE (12:45)
[2017-10-07] MEDS: NOREPINEPHRINE INJ 4 MG in SODIUM CHLOR 0.9% 250 ML INJ 246 ML IV PRN ×3 (13:01→20:29)
--- NOTE | 2017-10-07 13:01 | EKG ---
Date Performed: 10/06/2017 Time Performed: 19:26:06 PTAGE: 67 years EKG: SINUS TACHYCARDIA WITH FREQUENT SUPRAVENTRICULAR PREMATURE COMPLEXES INCOMPLETE RIGHT BUNDL E BRANCH BLOCK ABNORMAL RHYTHM ECG Compared to PREVIOUS TRACING , these changes are new. PREVIOUS TRACIN06/17/2017 14.28 DOCTOR: Naif Stover Interpretating Date/Time 10/07/2017 13:00:19
[2017-10-07] MEDS: INSULIN REGULAR (IV INFUSION) 100 UNITS in SODIUM CHLORIDE 0.9% INJ 99 ML IV PRN (13:11)
[2017-10-07] MEDS: SODIUM CHLOR 0.9% 1000 ML INJ 1,000 ML IV SCH ×2 (13:51→19:43)
[2017-10-07 14:13] LABS: TROPONIN I 1.01 NG/ML (0.02-0.05)
[2017-10-07 16:14] LABS: CREATININE, RANDOM URINE 51.7 MG/DL
--- NOTE | 2017-10-07 18:08 | RADRPT ---
EXAM DATE/TIME: 10/07/2017 17:09 [facility] COMPARISON: No previous studies available for comparison. INDICATIONS : Elevated liver function tests and creatinine. MEDICAL HISTORY : Dementia. Alzheimer's. Depression. Anxiety. SURGICAL HISTORY : Unable to obtain. ENCOUNTER: Initial ACUITY: 1 day PAIN SCORE: Nonresponsive. LOCATION: Abdomen. MEASUREMENTS: LIVER: 14.5 cm length COMMON DUCT: mm RIGHT KIDNEY: 10.2 x 4.0 x 4.7 cm LEFT KIDNEY: 11.2 x 4.9 x 5.8 cm SPLEEN: 8.8 cm length AORTA: 2.0cm maximal FINDINGS: Bilateral pleural effusions present. Trace free fluid around the liver. Gallbladder wall thickened up to 8 mm with pericholecystic fluid and probable echogenic sludge. Mild dilatation of right renal col lecting system. Portal venous flow is normal direction. Liver size is normal. CONCLUSION: 1. Gallbladder wall thickened up to 8 mm with pericholecystic fluid, echogenic sludge. However, no so nographic Crespo sign. 2. Mild right-sided hydronephrosis. 3. There are bilateral pleural effusions and trace free fluid in the abdomen. Joshua Mcgovern MD on October 07, 2017 at 17:59 Board Certified Radiologist. This report was verified electronically.
[2017-10-08] VITALS (18 sets, daily range): BP systolic 113–158; BP diastolic 58–73; PULSE 109–122; RESP 4–19; TEMP 97.8–99.6; O2SAT 92–100
[2017-10-08] MEDS: RESP: ALBUTEROL 2.5 MG/IPRATROPIUM 0.5 MG NEB (SCH) INH ×6 (00:18→20:51)
[2017-10-08] MEDS: PIPERACIL-TAZO 2.25 GM PREMIX 50 ML IV SCH ×3 (00:30→17:11)
[2017-10-08] MEDS: NOREPINEPHRINE INJ 4 MG in SODIUM CHLOR 0.9% 250 ML INJ 246 ML IV PRN ×4 (00:40→17:12)
[2017-10-08 01:06] LABS: TROPONIN I 0.95 NG/ML (0.02-0.05)
[2017-10-08] MEDS: CHLORHEXIDINE GLUCONATE 2 % 1 PACK (2 CLOTHS) TOP SCH (04:00)
[2017-10-08] MEDS: INSULIN REGULAR (IV INFUSION) 100 UNITS in SODIUM CHLORIDE 0.9% INJ 99 ML IV PRN (04:14)
[2017-10-08 04:48] LABS: HEMOGLOBIN 12.9 GM/DL (13.0-17.0); MEAN CELL VOLUME 88.3 FL (80.0-100.0); MEAN CORPUSCULAR HEMOGLOBIN 29.3 PG (27.0-34.0); MEAN CORPUSCULAR HGB CONC 33.1 % (32.0-36.0); MEAN PLATELET VOLUME 10.3 FL (7.0-11.0); PLATELET COUNT 58 TH/MM3 (150-450); RED BLOOD COUNT 4.41 MIL/MM3 (4.50-5.90); WHITE BLOOD COUNT 19.5 TH/MM3 (4.0-11.0)
[2017-10-08 04:57] LABS: INTERNATIONAL NORMALIZED RATIO 2.2 RATIO
[2017-10-08 05:32] LABS: ALBUMIN 1.7 GM/DL (3.4-5.0); BICARBONATE 15.4 MEQ/L (21.0-32.0); CHOLESTEROL/ HDL RATIO 7.52 RATIO; CREATININE 6.47 MG/DL (0.60-1.30); HDL CHOLESTEROL 10.1 MG/DL (40.0-60.0); PHOSPHORUS 3.5 MG/DL (2.5-4.9); TOTAL BILIRUBIN ADULT 2.1 MG/DL (0.2-1.0); TOTAL PROTEIN 4.9 GM/DL (6.4-8.2)
[2017-10-08 06:05] LABS: TROPONIN I 0.89 NG/ML (0.02-0.05)
--- NOTE | 2017-10-08 06:48 | RADRPT ---
EXAM DATE/TIME: 10/08/2017 04:34 [facility] COMPARISON: CHEST SINGLE AP, October 07, 2017, 0:24. INDICATIONS : Shortness of breath, possible pulmonary disease. MEDICAL HISTORY : None. SURGICAL HISTORY : None. ENCOUNTER: Subsequent ACUITY: 3 days PAIN SCORE: Non-responsive. LOCATION: Bilateral chest FINDINGS: There is ill-defined opacity in the right perihilar and infrahilar lung without consolidation. The l eft lung is clear. Both hemidiaphragms are well delineated. The heart is normal size. Gastric tube tip and side-port project within the stomach. ET tube tip well above the isha. Right subclavian catheter tip projects over the distal superior vena cava. CONCLUSION: Hazy non-consolidative infiltrates in the right jeison-/infrahilar region. Manpreet Marquez MD on October 08, 2017 at 6:44 Board Certified Radiologist. This report was verified electronically.
[2017-10-08] MEDS ORDERED: DEXTROSE 50% IN WATER 50 ML VIAL(D50) IV PUSH PRN (07:30)
[2017-10-08] MEDS ORDERED: GLUCAGON 1 MG/ML VIAL OTHER PRN (07:30)
--- NOTE | 2017-10-08 07:39 | HHI.CCPN ---
Subjective Remarks/Hospital Course 67-year-old unfortunate gentleman who is a resident of a custodial due to advanced Alzheimer dementia, psychosis, depressions and anxiety presents status post cardiac arrest. The patient has no family relatives in his decision-maker is Amber Mckinney, [facility] data entry representative for the patient. Per report in chart documentation he was last seen normal 5 minutes prior the vent at the custodial when he was suddenly found unresponsive. On EMS arrival the CPR was in progress by the staff. The patient was intubated and regain spontaneous circulation shortly after. Subjective 10/07: Afebrile. Unresponsive on the ventilator. Tolerating tube feeds at goal. No bowel movement. Pupils minimally responsive with upward gaze. There is no withdrawal to pain. 10/08 Patient remains intubated, unresponsive on no sedation. On Levophed 15 mics , Vasopressin 0.05 mics, insulin drip 6u/hr. Objective Vital Signs Date Time Temp Pulse Resp B/P (MAP) Pulse Ox O2 Delivery O2 Flow Rate FiO2 10/08/17 06:00 109 118/75 10/08/17 04:25 97 30 10/08/17 04:00 98.1 14 Intake and Output 10/08/17 10/08/17 10/09/17 08:00 16:00 00:00 Intake Total 200 ml Output Total 100 ml Balance 100 ml Result Diagram: 10/08/17 0405 10/08/17 0405 Other Results Laboratory Tests Test 10/07/17 07:58 10/07/17 09:46 10/07/17 12:50 10/07/17 13:35 Troponin I 1.28 NG/ML 1.01 NG/ML White Blood Count 16.5 TH/MM3 Red Blood Count 4.64 MIL/MM3 Hemoglobin 13.7 GM/DL Hematocrit 47.2 % Mean Corpuscular Volume 101.6 FL Mean Corpuscular Hemoglobin 29.5 PG Mean Corpuscular Hemoglobin Concent 29.1 % Red Cell Distribution Width 14.3 % Platelet Count 92 TH/MM3 Mean Platelet Volume 10.4 FL Neutrophils (%) (Auto) 89.0 % Lymphocytes (%) (Auto) 7.3 % Monocytes (%) (Auto) 2.1 % Eosinophils (%) (Auto) 1.3 % Basophils (%) (Auto) 0.3 % Neutrophils # (Auto) 14.7 TH/MM3 Lymphocytes # (Auto) 1.2 TH/MM3 Monocytes # (Auto) 0.3 TH/MM3 Eosinophils # (Auto) 0.2 TH/MM3 Basophils # (Auto) 0.0 TH/MM3 CBC Comment AUTO DIFF Differential Total Cells Counted 100 Neutrophils % (Manual) 61 % Band Neutrophils % 31 % Lymphocytes % 6 % Monocytes % 2 % Neutrophils # (Manual) 15.2 TH/MM3 Nucleated Red Blood Cells 2 /100 WBC Differential Comment FINAL DIFF MANUAL Platelet Estimate LOW Platelet Morphology Comment ENLARGED [place] Bodies PRESENT Sodium Level 137 MEQ/L 136 MEQ/L Blood Urea Nitrogen 123 MG/DL Creatinine 6.65 MG/DL Random Glucose 1136 MG/DL Total Protein 5.3 GM/DL Albumin 2.0 GM/DL Calcium Level 6.0 MG/DL Phosphorus Level 6.2 MG/DL Magnesium Level 2.6 MG/DL Alkaline Phosphatase 114 U/L Aspartate Amino Transf (AST/SGOT) 4419 U/L Alanine Aminotransferase (ALT/SGPT) 1997 U/L Total Bilirubin 4.0 MG/DL Potassium Level 5.1 MEQ/L Chloride Level 101 MEQ/L Carbon Dioxide Level 15.0 MEQ/L Anion Gap 21 MEQ/L Estimat Glomerular Filtration Rate 8 ML/MIN Serum Osmolality 396 MOSM/KG Protein Corrected Calcium 6.8 MG/DL Lactic Acid Level 6.3 mmol/L Urine Eosinophils NONE SEEN /HPF Urine Osmolality 416 MOSM/KG Urine Random Creatinine 51.7 MG/DL Urine Random Sodium 24 MEQ/L Test 10/07/17 15:20 10/07/17 16:10 10/07/17 17:15 10/07/17 18:05 Random Glucose 873 MG/DL 840 MG/DL 797 MG/DL 757 MG/DL Test 10/07/17 19:18 10/07/17 23:50 10/08/17 04:05 10/08/17 06:18 Random Glucose 687 MG/DL 263 MG/DL Sodium Level 146 MEQ/L 148 MEQ/L Lactic Acid Level 3.5 mmol/L 3.1 mmol/L Troponin I 0.95 NG/ML 0.89 NG/ML White Blood Count 19.5 TH/MM3 Red Blood Count 4.41 MIL/MM3 Hemoglobin 12.9 GM/DL Hematocrit 39.0 % Mean Corpuscular Volume 88.3 FL Mean Corpuscular Hemoglobin 29.3 PG Mean Corpuscular Hemoglobin Concent 33.1 % Red Cell Distribution Width 14.0 % Platelet Count 58 TH/MM3 Mean Platelet Volume 10.3 FL CBC Comment AUTO DIFF Prothrombin Time 22.0 SEC Prothromb Time International Ratio 2.2 RATIO Activated Partial Thromboplast Time 41.7 SEC Blood Urea Nitrogen 123 MG/DL Creatinine 6.47 MG/DL Total Protein 4.9 GM/DL Albumin 1.7 GM/DL Calcium Level 6.0 MG/DL Phosphorus Level 3.5 MG/DL Magnesium Level 2.0 MG/DL Alkaline Phosphatase 88 U/L Aspartate Amino Transf (AST/SGOT) 1277 U/L Alanine Aminotransferase (ALT/SGPT) 1344 U/L Total Bilirubin 2.1 MG/DL Potassium Level 4.1 MEQ/L Chloride Level 116 MEQ/L Carbon Dioxide Level 15.4 MEQ/L Anion Gap 17 MEQ/L Estimat Glomerular Filtration Rate 9 ML/MIN Protein Corrected Calcium 7.0 MG/DL Ammonia 32 MCMOL/L Total Creatine Kinase 4493 U/L Creatine Kinase MB 50.0 NG/ML Creatine Kinase MB % 1.1 % Triglycerides Level 108 MG/DL Cholesterol Level 76 MG/DL LDL Cholesterol 44 MG/DL HDL Cholesterol 10.1 MG/DL Cholesterol/HDL Ratio 7.52 RATIO Amylase Level 69 U/L Lipase 248 U/L Thyroid Stimulating Hormone 3rd Gen 0.564 uIU/ML Valproic Acid (Depakene) Level 6 MCG/ML Blood Gas Puncture Site ART LINE Blood Gas Patient Temperature 98.6 Blood Gas HCO3 14 mmol/L Blood Gas Base Excess -11.8 mmol/L Blood Gas Oxygen Saturation 97 % Arterial Blood pH 7.28 Arterial Blood Partial Pressure CO2 30 mmHg Arterial Blood Partial Pressure O2 121 mmHg Arterial Blood Oxygen Content 17.5 Vol % Arterial Blood Carboxyhemoglobin 0.3 % Arterial Blood Methemoglobin 1.4 % Blood Gas Hemoglobin 12.8 G/DL Oxygen Delivery Device VENT Blood Gas Ventilator Setting SEE COMMENTS Imaging Last Impressions Chest X-Ray 10/07/17 0000 Signed Impressions: Service Date/Time: Saturday, October 07, 2017 00:24 - CONCLUSION: 1. Right subclavian central venous catheter with the tip projecting over the central venous system. No pneumothorax. 2. Faint airspace disease developing in the right lower lobe. Saud Bond MD Abdomen Ultrasound 10/07/17 0000 Signed Impressions: Service Date/Time: Saturday, October 07, 2017 17:09 - CONCLUSION: 1. Gallbladder wall thickened up to 8 mm with pericholecystic fluid, echogenic sludge. However , no sonographic Crespo sign. 2. Mild right-sided hydronephrosis. 3. There are bilateral pleural effusions and trace free fluid in the abdomen. Joshua Mcgovern MD Head CT [id number]/06/[id number] Signed Impressions: Service Date/Time: Saturday, October 07, 2017 00:52 - CONCLUSION: 1. Stable ventricular prominence. 2. 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 There is still some mass effect on the adjacent cerebral hemisphere, however. 3. Fluid density in the ethmoid air cells and nasopharynx bilaterally may be associated with the recent resuscitory efforts. Saud Bond MD Objective Remarks GENERAL: 67-year-old male currently orotracheally intubated SKIN: Warm and dry. No rash HEAD: Normocephalic. EYES: Pupils are round 3 mm bilaterally with upward gaze. + scleral icterus with conjunctival hemorrhage and scleral edema. NECK: No JVD or thyromegaly or lymphadenopathy. No carotid bruits. CARDIOVASCULAR: Regular rate and rhythm. S1, S2 no S4. Without murmurs, gallops, or rubs. RESPIRATORY: Breath sounds equal bilaterally. No accessory muscle use. GASTROINTESTINAL: Abdomen soft, non-tender, nondistended. Bowel sounds are not appreciated MUSCULOSKELETAL: No significant peripheral edema. NEURO EXAM: Patient does not withdraw to pain in bilateral upper and lower extremity. Pupils are very minimally reactive but extremely sluggish. No gag or cough. 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 Currently on levetiracetam 500 mg by tube twice daily for seizure therapy CT brain revealed right cerebral hygroma 5 mm. Follow up on EEG results, neuro eval. Holding haloperidol 1 mg 3 times daily, lorazepam 1 mg as needed and Quetiapine 150 mg twice daily/home medications for depression/agitation CV: [facility] Elevated troponin Severe shock likely cardiogenic Lactic acidosis Wean off pressors ( On Levophed 15 mics, vasopresisn 0.04) monitor HR and BP keep MAP>65mmHg Trop is trending down. Not on beta brian or Zack-I as patient is on pressors and in renal failure. For 2D echo Patient wasn't placed on targeted temperature monitoring by overnight angle shearer secondary to severe end-stage dementia and currently out of window to initiate therapy at the present time Resp: [facility]1.07/27/29 Ventilator bundle Albuterol/ipratropium aerosols every 4 hours with albuterol aerosols every 2 hours as needed dyspnea Spontaneous breathing trials when clinically indicated GI: Elevated transaminases/bilirubin Hypoalbuminemia Likely secondary to shock liver/hypoperfusion OGT to LIWS Tube feeds held - Nepro at 45 cc an hour Monitor LFT's, follow up on Hep profile. Famotidine for GI prophylaxis Docusate sodium/senna 1 tablet twice daily for bowel regimen, add Senna and Colace Avoid hepatotoxic medication Endo: Transition insulin drip to SSI ( medium scale) with accuchecks Q4hr TSH:0.56 Renal: Acute kidney injury Rhabdo Monitor renal function, I/O's, avoid nephrotoxins Change IVF to SW+3amps bicarb @125ml/hr, will give 2 amps bicarb IV x1 US abdomen: Mild right sided hydronephrosis Renal eval. Cr: 6.47 today from 6.65 Heme: Elevated coags likely secondary to shock liver Anemia, thrombocytopenia History of left-sided basal cell carcinoma/melanoma left chest/arm s/p Vitamin K 10 mg/FFP 2 units 1 now. Monitor CBC,coags , check fibrinogen r/o DIC ID: [id number] Leukocytosis Aspiration pneumonia Continue Zosyn, add Vanco. Monitor for signs of infections ( Fever, WBC) check sputum cx Pertinent cultures 10/06 - blood cultures 2 -NGTD 10/06 - urine culture -pending MSK: PT evaluate and treat Access -Utilize right subclavian CVL day #1 placed 10/07 Prophylaxis -GI -famotidine -DVT -SCDs/heparin subcutaneous held with elevated INR/PTT. Palliative care consulted to asses with goals of care Critical Care: The total critical care time was 30 minutes. Time to perform other separately billable procedures was not included in the critical care time. Freedom Sutton MD Oct 08, 2017 07:39
[2017-10-08] MEDS ORDERED: SODIUM BICARBONATE 8.4% INJ 50 MEQ/50 ML SYR IV PUSH ONE (08:00)
[2017-10-08] MEDS: CHLORHEXIDINE 0.12% (ORAL KIT) 15 ML CUP MT SCH ×2 (08:00→20:20)
[2017-10-08 08:05] LABS: BANDS 21 % (0-6); CORRECTED NUCLEATED RBC 2 /100 WBC (0-0); LYMPHOCYTES 12 % (9-44); MONOCYTES 2 % (0-8); NEUTROPHIL # MANUAL DIFF 16.8 TH/MM3 (1.8-7.7); NUCLEATED RED BLOOD CELL 2 (0-0); POLYS (SEG NEUTROPHILS) 65 % (16-70)
[2017-10-08] MEDS ORDERED: Vancomycin Consult Pharmacy 1 EA OTHER SCH (08:15)
[2017-10-08] MEDS: SODIUM CHLOR 0.9% 1000 ML INJ 1,000 ML IV SCH (08:45)
[2017-10-08] MEDS: INSULIN NovoLIN REGULAR SUPPLEMENTAL SCALE SQ SCH ×4 (08:50→20:00)
[2017-10-08] MEDS: ARTIFICIAL TEARS OPTH SOLN 15 ML BTL EACH EYE SCH ×3 (08:51→17:12)
[2017-10-08] MEDS: SODIUM CHLORIDE 0.9% FLUSH 10 ML FLUSH IV FLUSH SCH ×2 (08:51→20:18)
[2017-10-08] MEDS: levETIRAcetam 500 MG/5 ML UDC NG SCH ×2 (08:51→20:18)
[2017-10-08] MEDS: SENNOSIDES SYRUP 8.8 MG/5 ML CUP PO SCH (08:52)
[2017-10-08] MEDS: DOCUSATE SODIUM 100 MG/10 ML UDC PO SCH ×2 (08:57→20:18)
[2017-10-08] MEDS: FAMOTIDINE 20 MG/2 ML VIAL IV PUSH SCH ×2 (08:57→20:18)
[2017-10-08] MEDS: DOCUSATE SODIUM 50 MG/SENNA 8.6 MG TAB PO SCH ×2 (08:57→20:18)
[2017-10-08] MEDS ORDERED: VANCOMYCIN INJ 1,500 MG in SODIUM CHLORID 0.9% 500 ML INJ 500 ML IV ONE (10:00)
--- NOTE | 2017-10-08 10:23 | PD.CONS ---
HPI Service Nephrology Consult Requested By Reason for Consult Acute Renal Failure Primary Care Physician Unknown History of Present Illness This is a 67 y/o Male patient who was brought in to hospital s/p cardiac arrest , had ROSC. His renal function was normal in May 2017. On arrival his creatinine was 7.53, improved to 6.4 today. He is unresponsive on the vent and unable to answer question, he has a hx of Alzheimer's and Dementia. CPK noted to be over 4000. His BP was 50/30s on arrival. His imaging shows hydronephrosis on right. He is currently oliguric. We were consulted to assist with management. (Barbie Whaley) Review of Systems ROS Limitations: Clinical Condition, Intubated, Altered Mental Status (Barbie Whaley) Past Family Social History Allergies: Coded Allergies: No Known Allergies (Unverified Allergy, Unknown, 10/07/17) Past Medical History Psychosis Alzheimer dementia Depressions Anxiety Past Surgical History Unknown Reported Medications Ativan (Lorazepam) 1 Mg Tab 1 Mg PO Q8H PRN Aspirin 325 Mg Tab 325 Mg PO DAILY Keppra (Levetiracetam) 1,000 Mg Tab 500 Mg PO BID Quetiapine (Quetiapine Fumarate) 300 Mg Tab 150 Mg PO BID Haloperidol 1 Mg Tab 1 Mg PO TID Ativan (Lorazepam) 1 Mg Tab 1 Mg PO BID PRN Active Ordered Medications Last 72 hours Impressions Chest X-Ray 10/08/17 0600 Signed Impressions: Service Date/Time: Sunday, October 08, 2017 04:34 - CONCLUSION: Hazy non-consolidative infiltrates in the right jeison-/infrahilar region. Manpreet Marquez MD Chest X-Ray 10/07/17 0000 Signed Impressions: Service Date/Time: Saturday, October 07, 2017 00:24 - CONCLUSION: 1. Right subclavian central venous catheter with the tip projecting over the central venous system. No pneumothorax. 2. Faint airspace disease developing in the right lower lobe. Suad Bond MD Abdomen Ultrasound 10/07/17 0000 Signed Impressions: Service Date/Time: Saturday, October 07, 2017 17:09 - CONCLUSION: 1. Gallbladder wall thickened up to 8 mm with pericholecystic fluid, echogenic sludge. However , no sonographic Crespo sign. 2. Mild right-sided hydronephrosis. 3. There are bilateral pleural effusions and trace free fluid in the abdomen. Joshua Mcgovern MD Head CT 10/06/171924 Signed Impressions: Service Date/Time: Saturday, October 07, 2017 00:52 - CONCLUSION: 1. Stable ventricular prominence. 2. 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 There is still some mass effect on the adjacent cerebral hemisphere, however. 3. Fluid density in the ethmoid air cells and nasopharynx bilaterally may be associated with the recent resuscitory efforts. Saud Bond MD Chest X-Ray 10/06/171924 Signed Impressions: Service Date/Time: Friday, October 06, 2017 20:00 - CONCLUSION: 1. Endotracheal tube in good position. Joshua Mcgovern MD Family History Unable to be obtainable Social History He resides in a senior care [facility] (Barbie Whaley) Physical Exam Vital Signs Vital Signs Date Time Temp Pulse Resp B/P (MAP) Pulse Ox O2 Delivery O2 Flow Rate FiO2 10/08/17 09:49 122 152/68 10/08/17 08:38 92 30 10/08/17 06:00 109 118/75 10/08/17 06:00 109 118/75 10/08/17 06:00 109 10/08/17 05:50 110 113/75 10/08/17 04:25 97 30 10/08/17 04:00 110 10/08/17 04:00 98.1 110 14 113/73 (86) 100 10/08/17 04:00 110 113/73 10/08/17 04:00 110 113/73 10/08/17 02:00 109 10/08/17 02:00 109 94/75 10/08/17 02:00 109 94/75 10/08/17 00:40 107 108/70 10/08/17 00:18 94 30 10/08/17 00:00 98.0 110 19 121/72 (88) 94 10/08/17 00:00 110 121/72 10/08/17 00:00 110 121/72 10/08/17 00:00 110 10/07/17 23:00 104 131/67 10/07/17 23:00 104 131/67 10/07/17 22:00 102 10/07/17 22:00 102 133/66 10/07/17 22:00 102 133/66 10/07/17 20:30 106 112/60 10/07/17 20:30 95 30 10/07/17 20:29 101 124/63 10/07/17 20:00 102 10/07/17 20:00 98.7 102 15 128/66 (86) 93 10/07/17 20:00 102 128/66 10/07/17 20:00 102 128/66 10/07/17 19:41 100 130/65 10/07/17 18:00 93 10/07/17 16:45 91 119/56 10/07/17 16:00 82 10/07/17 16:00 98.0 83 0 120/55 (76) 100 10/07/17 14:58 97 35 10/07/17 14:00 84 10/07/17 13:01 86 158/60 10/07/17 12:00 79 10/07/17 12:00 98.4 79 0 109/58 (75) 10/07/17 10:23 99 35 Physical Exam GENERAL: Well-nourished, well-developed patient. Unresponsive and intubated SKIN: Warm and dry. HEAD: Normocephalic. EYES: No scleral icterus. No injection or drainage. NECK: Supple, trachea midline. No JVD or lymphadenopathy. CARDIOVASCULAR: Regular rate and rhythm without murmurs, gallops, or rubs. RESPIRATORY: Breath sounds equal bilaterally. No accessory muscle use. GASTROINTESTINAL: Abdomen soft, non-tender, nondistended. MUSCULOSKELETAL: No cyanosis, or edema. Ext: no edema noted Laboratory Laboratory Tests Test 10/07/17 12:50 10/07/17 13:35 10/07/17 15:20 10/07/17 16:10 Sodium Level 136 Lactic Acid Level 6.3 Troponin I 1.01 Urine Eosinophils NONE SEEN Urine Osmolality 416 Urine Random Creatinine 51.7 Urine Random Sodium 24 Random Glucose 873 840 Test 10/07/17 17:15 10/07/17 18:05 10/07/17 19:18 10/07/17 23:50 Random Glucose 797 757 687 Sodium Level 146 Lactic Acid Level 3.5 Troponin I 0.95 Test 10/08/17 04:05 10/08/17 06:18 White Blood Count 19.5 Red Blood Count 4.41 Hemoglobin 12.9 Hematocrit 39.0 Mean Corpuscular Volume 88.3 Mean Corpuscular Hemoglobin 29.3 Mean Corpuscular Hemoglobin Concent 33.1 Red Cell Distribution Width 14.0 Platelet Count 58 Mean Platelet Volume 10.3 CBC Comment AUTO DIFF Differential Total Cells Counted 100 Neutrophils % (Manual) 65 Band Neutrophils % 21 Lymphocytes % 12 Monocytes % 2 Neutrophils # (Manual) 16.8 Nucleated Red Blood Cells 2 Differential Comment FINAL DIFF MANUAL Platelet Estimate LOW Platelet Morphology Comment NORMAL Red Cell Morphology Comment NORMAL Prothrombin Time 22.0 Prothromb Time International Ratio 2.2 Activated Partial Thromboplast Time 41.7 Fibrinogen 232 Blood Urea Nitrogen 123 Creatinine 6.47 Random Glucose 263 Total Protein 4.9 Albumin 1.7 Calcium Level 6.0 Phosphorus Level 3.5 Magnesium Level 2.0 Alkaline Phosphatase 88 Aspartate Amino Transf (AST/SGOT) 1277 Alanine Aminotransferase (ALT/SGPT) 1344 Total Bilirubin 2.1 Sodium Level 148 Potassium Level 4.1 Chloride Level 116 Carbon Dioxide Level 15.4 Anion Gap 17 Estimat Glomerular Filtration Rate 9 Lactic Acid Level 3.1 Protein Corrected Calcium 7.0 Ammonia 32 Total Creatine Kinase 4493 Creatine Kinase MB 50.0 Creatine Kinase MB % 1.1 Troponin I 0.89 Triglycerides Level 108 Cholesterol Level 76 LDL Cholesterol 44 HDL Cholesterol 10.1 Cholesterol/HDL Ratio 7.52 Amylase Level 69 Lipase 248 Thyroid Stimulating Hormone 3rd Gen 0.564 Random Cortisol 39.6 Valproic Acid (Depakene) Level 6 Hepatitis A IgM Antibody NONREACTIVE Hepatitis B Surface Antigen NONREACTIVE Hepatitis B Core IgM Antibody NONREACTIVE Hepatitis C IgG Antibody NONREACTIVE Blood Gas Puncture Site ART LINE Blood Gas Patient Temperature 98.6 Blood Gas HCO3 14 Blood Gas Base Excess -11.8 Blood Gas Oxygen Saturation 97 Arterial Blood pH 7.28 Arterial Blood Partial Pressure CO2 30 Arterial Blood Partial Pressure O2 121 Arterial Blood Oxygen Content 17.5 Arterial Blood Carboxyhemoglobin 0.3 Arterial Blood Methemoglobin 1.4 Blood Gas Hemoglobin 12.8 Oxygen Delivery Device VENT Blood Gas Ventilator Setting SEE COMMENTS Date/Time Source Procedure Growth Status 10/06/17 19:40 Blood Peripheral Aerobic Blood Culture - Preliminary NO GROWTH IN 1 DAY Resulted 10/06/17 19:40 Blood Peripheral Anaerobic Blood Culture - Preliminary NO GROWTH IN 1 DAY Resulted 10/06/17 20:08 Urine Clean Catch Urine Culture - Preliminary NO GROWTH IN 24 HOURS. Resulted (Barbie Whaley) Result Diagram: 10/08/175 10/08/17 0405 Imaging Last 72 hours Impressions Chest X-Ray 10/08/17 0600 Signed Impressions: Service Date/Time: Sunday, October 08, 2017 04:34 - CONCLUSION: Hazy non-consolidative infiltrates in the right jeison-/infrahilar region. Manpreet Marquez MD Chest X-Ray 10/07/17 0000 Signed Impressions: Service Date/Time: Saturday, October 07, 2017 00:24 - CONCLUSION: 1. Right subclavian central venous catheter with the tip projecting over the central venous system. No pneumothorax. 2. Faint airspace disease developing in the right lower lobe. Saud Bond MD Abdomen Ultrasound 10/07/17 0000 Signed Impressions: Service Date/Time: Saturday, October 07, 2017 17:09 - CONCLUSION: 1. Gallbladder wall thickened up to 8 mm with pericholecystic fluid, echogenic sludge. However , no sonographic Crespo sign. 2. Mild right-sided hydronephrosis. 3. There are bilateral pleural effusions and trace free fluid in the abdomen. Joshua Mcgovern MD Head CT 10/06/171924 Signed Impressions: Service Date/Time: Saturday, October 07, 2017 00:52 - CONCLUSION: 1. Stable ventricular prominence. 2. 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 There is still some mass effect on the adjacent cerebral hemisphere, however. 3. Fluid density in the ethmoid air cells and nasopharynx bilaterally may be associated with the recent resuscitory efforts. Saud Bond MD Chest X-Ray 10/06/171924 Signed Impressions: Service Date/Time: Friday, October 06, 2017 20:00 - CONCLUSION: 1. Endotracheal tube in good position. Joshua Mcgovern MD (Barbie Whaley) Assessment and Plan Problem List: (1) Acute renal failure ICD Codes: N17.9 - Acute kidney failure, unspecified Plan: Normal renal function at baseline MADAY most likey ATN from hypoperfusion due to cardiac arrest. His BP was charted at 70/30s. HE is on pressors currently Oliguric, monitor output Repeat CPK Prior was on hospice but not a DNR? Full code now Repeat labs, renally dose (2) Cardiac arrest ICD Codes: I46.9 - Cardiac arrest, cause unspecified Status: Acute Plan: Etiology uncertain Continue supportive care (3) Lactic acidosis ICD Codes: E87.2 - Acidosis Plan: Due to cardiac arrest (4) Diabetes ICD Codes: E11.9 - Type 2 diabetes mellitus without complications Plan: HHNK on arrival Maintain glucose 140-180 mg/dL. (5) Sepsis ICD Codes: A41.9 - Sepsis, unspecified organism Plan: On Vancomycin and Zosyn, Continue supportive care (Barbie Whaley) Assessment and Plan patient was seen and examined. MADAY likely due to ATN. Creatinine is slightly better. Change IVF to sterile water with 100 mEq of NaHCO3 because of hypernatremia. On arrival his serum Na was 182? May have been due administration of sodium bicarbonate during code? (Carlos Kirkland MD) Barbie Whaley Oct 08, 2017 10:23 Carlos Kirkland MD Oct 08, 2017 20:01
--- NOTE | 2017-10-08 10:48 | MB ---
cc: Jess Joe MD DATE OF CONSULT: 10/08/2017 HISTORY OF PRESENT ILLNESS: He is 67 years old with a history of Alzheimer's type of dementia and apparently sustained a cardiac arrest in the nursing facility, brought to the hospital day before yesterday. Intubated. The patient is being treated for acute renal failure as well. He is on sepsis medications including vancomycin. On piperacillin. On Keppra. Has been treated with pressors. Apparently on no sedation. NEUROLOGIC EXAMINATION: Showed comatose patient who has minimal responses. Upon somatosensory stimulation he starts grimacing. With coronary stimulation, there is very mild blinking. Minimal or no gagging, but is breathing 1 or 2 breaths over the vent. Reflexes essentially absent and he is flaccid. Pupils were small, poorly reactive. Multiple laboratory abnormalities. White count 19.5, hemoglobin 12.9, platelet count low at 58. Initially, platelets were 182. Current chemistry: Sodium 148, potassium 4.1, BUN 123, creatinine 6.47, glucose 263, calcium low at 6.0. CPK 4493. AST and ALT elevated to above 1000. ASSESSMENT AND PLAN: Hypoxic/anoxic encephalopathy. History of advanced Alzheimer's with associated psychosis. Acute renal failure. Presumed sepsis. I will review EEG. The CT brain was negative for acute process except for some right cerebral hygroma/subdural, actually smaller than the previous study. Continue medical care, supportive care. MRI might not be of much benefit in this setting. Apparently, the patient is to be treated with maximum care. No suggestion of ongoing seizure. I will review EEG and follow neurological care. We will talk to the guardian, etc. as we know a bit more and have more information on the prognosis in order to help determine the level of care to be provided. MD VIDYA Cueto/LAWRENCE , 09:57 AM , 10:46 AM
[2017-10-08] MEDS: SODIUM BICARBONATE 8.4% INJ 150 MEQ in WATER STERILE FOR INJ 850 ML IV SCH ×2 (10:51→18:35)
--- NOTE | 2017-10-08 12:24 | HHI.HCSW ---
[employer]er Visit Significant Family/Friend Attempting to identify legal proxy decision maker for Mr. Rajput. [employer] requested through case management. Google search produced possible relative Giana Rajput, age 95: * [phone]: left voicemail * [phone]: disconnected * [phone]: disconnected * [phone]: not in service * [phone]: disconnected . Alison Phelps TEST EVALUATOR, DREDGE PUMP OPERATOR Oct 08, 2017 12:24
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
--- NOTE | 2017-10-08 12:48 | PD.CONS ---
Consult Service Palliative Care Consult Requested By Dr. Escobedo . Primary Care Physician Unknown . Reason for Consultation a. To assist with evaluation and management of symptoms including: Encephalopathy, dyspnea b. To assist medical decision maker(s) with: better understanding of current medical conditions; weighing benefits/burdens of medical treatment options; making medical treatment decisions. . HPI History of Present Illness This 67-year-old [facility] resident, with a past history of end-stage dementia, CVA, and depression, has been an [facility] resident for 6-8 months. According to the [facility] staff this morning, the patient has been declining quite rapidly over the past month, essentially stopped eating and drinking a week or 2 ago, and in their words has been "actively dying" since 10/03/17. The patient has no family that anyone has been able to contact, and a DCF worker Beatrice Mckinney has been functioning as a "guardian" and apparently arranged to initiate hospice services with [facility] on 10/03/17. The [facility] staff reports "they have been trying to figure out how to get a DNR since then, have been providing bedside hospice continuous care, "but the patient was not a DNR and was still a full code when he went into cardiac arrest, so 911 was called." The [facility] staff initiated CPR, and when [facility] arrived the patient was noted to be in asystole. Resuscitation was undertaken, and after several cycles, 2 doses of epinephrine, and 1 defibrillation, the patient regained a pulse. He was brought to the emergency department. In the emergency department, findings included: * Unresponsive, intubated * White count 20.6, hemoglobin 15.5 * Sodium 182, creatinine 7.83, GFR 7 * AST 1559, ALT 698, bilirubin 1.9 * Troponin I.04 * Chest x-ray with ET tube in place Resuscitation efforts were continued, a right subclavian line was placed, and the patient [place] [facility] By the following day, the chest x-ray revealed a right lower lobe infiltrate, and an ultrasound of the abdomen showed mild hydronephrosis on the right. On 10/08/17, the patient remains on Levophed and vasopressin, the creatinine is now 6.47, sodium 148, white count 19.5, troponin 0.89, and CK 4493. Palliative Care was consulted to assist with symptom management, and to begin the active search for a decision-maker to discuss the medical problems, the prognosis, and the benefits and burdens of the various treatment choices. . Function/Cognitive Trajectory The patient has been declining rapidly according to the [facility] staff, he was bedbound, nonverbal, had stopped eating and drinking, and was actively dying in recent days. . Review of Systems ROS Limitations: Clinical Condition (History per [facility] and hospital staff) Constitutional: COMPLAINS OF: Weight loss (In recent weeks) Eyes: DENIES: Eye inflammation Ears, nose, mouth, throat: DENIES: Epistaxis Cardiovascular: COMPLAINS OF: Syncope (With cardiac arrest) Gastrointestinal: DENIES: Diarrhea, Vomiting Genitourinary: DENIES: Hematuria Musculoskeletal: DENIES: Joint Swelling Integumentary: DENIES: Rash Hematologic/Lymphatics: DENIES: Bruising Immunologic/Allergic: DENIES: Eczema Neurologic: DENIES: Seizures Psychiatric: DENIES: Hallucinations, Agitation Past Family Social History Coded Allergies: No Known Allergies (Unverified Allergy, Unknown, 10/07/17) Past Medical History * End-stage Alzheimer's dementia * History of prior stroke * Depression . Past Surgical History * Melanoma excision from arm and chest * Some type of kidney surgery as a child * Tonsillectomy many years ago * Shoulder surgery . Reported Medications Reported Meds & Active Scripts Active Reported Ativan (Lorazepam) 1 Mg Tab 1 Mg PO Q8H PRN Quetiapine (Quetiapine Fumarate) 300 Mg Tab 150 Mg PO BID Haloperidol 1 Mg Tab 1 Mg PO TID . Current Medications Medications (Trade) Dose Ordered Sig/Zaida Route Start Time Stop Time Status Last Admin (NS Flush) 2 ml UNSCH PRN IV FLUSH 10/06/17 21:00 (NS Flush) 2 ml BID IV FLUSH 10/06/17 21:00 10/08/17 08:51 (Tears Naturale Opth Soln) 1 drop TID EACH EYE 10/07/17 09:00 10/08/17 08:51 (Zofran Inj) 4 mg Q6H PRN IV PUSH 10/06/17 21:00 (Heparin Inj) 5,000 units Q8HR SQ 10/06/17 22:00 Future Hold 10/07/17 06:04 Miscellaneous Information 1 Q361D XX 10/06/17 21:00 10/07/17 00:00 (Chlorhexidine 2% Cloth) 3 pack Taper DAILY@04 TOP 10/07/17 04:00 10/03/18 03:59 10/08/17 04:00 (Chlorhexidine 2% Cloth) 3 pack UNSCH PRN TOP 10/06/17 21:00 (Emily-Colace) 1 tab BID PO 10/06/17 21:00 10/07/17 19:41 (Milk Of Magnesia Liq) 30 ml Q12H PRN PO 10/06/17 21:00 (Senokot) 17.2 mg Q12H PRN PO 10/06/17 21:00 (Dulcolax Supp) 10 mg DAILY PRN RECTAL 10/06/17 21:00 (Lactulose Liq) 30 ml DAILY PRN PO 10/06/17 21:00 Midazolam HCl 100 ml @ 2 mls/hr TITRATE PRN IV 10/06/17 21:00 (Pepcid Inj) 10 mg Q12HR IV PUSH 10/07/17 09:00 10/08/17 08:57 Vasopressin 40 units/Dextrose 100 ml @ 6 mls/hr [id number] IV 10/07/17 07:29 10/07/17 19:41 (Albuterol Neb) 2.5 mg Q2HR NEB PRN NEB 10/07/17 07:45 (Duoneb Neb) 1 ampule Q4HR NEB INH 10/07/17 08:00 10/08/17 11:46 (Peridex 0.12% Liq) 15 ml BID@08,20 MT 10/07/17 08:00 10/08/17 08:00 Propofol 100 ml @ 1.953 mls/ hr TITRATE PRN IV 10/07/17 07:45 Fentanyl Citrate 250 ml @ 5 mls/hr TITRATE PRN IV 10/07/17 07:45 (D50w (Vial) Inj) 50 ml UNSCH PRN IV PUSH 10/07/17 08:00 (Glucagon Inj) 1 mg UNSCH PRN OTHER 10/07/17 08:00 (Keppra Liq) 500 mg Q12HR NG 10/07/17 09:00 10/08/17 08:51 Piperacillin Sod/ Tazobactam Sod 50 ml @ 100 mls/hr Q8H IV 10/07/17 09:00 10/08/17 08:51 (D50w (Vial) Inj) 50 ml UNSCH PRN IV PUSH 10/07/17 12:45 Norepinephrine Bitartrate 4 mg/ Sodium Chloride 250 ml @ 7.5 mls/hr TITRATE PRN IV 10/07/17 12:45 10/08/17 09:49 (Brethine Inj) 1 mg UNSCH PRN SQ 10/07/17 12:45 Epinephrine HCl 2 mg/Dextrose 252 ml @ 22.68 mls/ hr TITRATE PRN IV 10/07/17 12:45 Sodium Chloride 1,000 ml @ 100 mls/hr Q10H IV 10/07/17 12:45 10/07/17 19:43 Sodium Bicarbonate 150 meq/Sterile Water 1,000 ml @ 125 mls/hr Q8H IV 10/08/17 10:00 10/08/17 10:51 (D50w (Vial) Inj) 50 ml UNSCH PRN IV PUSH 10/08/17 07:30 (Glucagon Inj) 1 mg UNSCH PRN OTHER 10/08/17 07:30 (NovoLIN R SUPPLEMENTAL SCALE) 1 Q4H SQ 10/08/17 08:00 10/08/17 08:50 Pharmacy Profile Note 0 ml @ 0 mls/hr UNSCH OTHER 10/08/17 08:15 (Senna Liq) 8.8 mg DAILY PO 10/08/17 09:00 10/08/17 08:52 (Colace Liq) 100 mg Q12HR PO 10/08/17 09:00 10/08/17 08:57 Family History No information is available . Substance Use Tobacco: The [facility] staff says he has not been a smoker Alcohol: None Prescription med abuse: None reported Illicits: None reported . Psychosocial History Very little is known at this time. The [facility] staff reports that a friend once said there might be a nephew in another state related to this patient, but no one knows any names or contact information. The patient has lived at the [facility] the past 6 or 8 months. . Spiritual/Cultural Factors No information available . Living Will: Never completed Health Care Surrogate: Never completed Durable Power of Library Cataloging Technician: Never completed Ethical and Legal Issues The patient lacks capacity for decision-making, and he will not regain that capacity. Although the patient has a DCF worker Amber Mckinney functioning as a guardian, she apparently has declined to initiate DNR status or make other medical decisions. We are now actively engaged in a search for any relatives... . Physical Exam Vital Signs Date Time Temp Pulse Resp B/P (MAP) Pulse Ox O2 Delivery O2 Flow Rate FiO2 10/08/17 11:44 100 30 10/08/17 10:00 120 10/08/17 09:49 122 152/68 10/08/17 08:38 92 30 10/08/17 08:00 98.9 117 17 142/69 (93) 94 10/08/17 08:00 117 10/08/17 06:00 109 118/75 10/08/17 06:00 109 118/75 10/08/17 06:00 109 10/08/17 05:50 110 113/75 10/08/17 04:25 97 30 10/08/17 04:00 110 10/08/17 04:00 98.1 110 14 113/73 (86) 100 10/08/17 04:00 110 113/73 10/08/17 04:00 110 113/73 10/08/17 02:00 109 10/08/17 02:00 109 94/75 10/08/17 02:00 109 94/75 10/08/17 00:40 107 108/70 10/08/17 00:18 94 30 10/08/17 00:00 98.0 110 19 121/72 (88) 94 10/08/17 00:00 110 121/72 10/08/17 00:00 110 121/72 10/08/17 00:00 110 10/07/17 23:00 104 131/67 10/07/17 23:00 104 131/67 18 22:00 102 18 22:00 102 133/66 18 22:00 102 133/66 18 20:30 106 112/60 18 20:30 95 30 18 20:29 101 124/63 18 20:00 102 18 20:00 98.7 102 15 128/66 (86) 93 10/07/17 20:00 102 128/66 18 20:00 102 128/66 10/07/17 19:41 100 130/65 10/07/17 18:00 93 10/07/17 16:45 91 119/56 10/07/17 16:00 82 10/07/17 16:00 98.0 83 0 120/55 (76) 100 10/07/17 14:58 97 35 10/07/17 14:00 84 10/07/17 13:01 86 158/60 Exam CONSTITUTIONAL/GENERAL: This is an elderly appearing, unresponsive patient, in no apparent distress. TUBES/LINES/DRAINS: ET tube, Gordon, right subclavian, peripheral IV, SCDs SKIN: No jaundice, rashes, or lesions. Ecchymoses on upper extremities. No wounds seen anteriorly. Skin temperature appropriate. Not diaphoretic. HEAD: Atraumatic. Normocephalic. EYES: Pupils equal and round about 2 mm each, I do not see any reaction to light. Both eyes have an upward gaze. No scleral icterus. No injection or drainage. Fundi not examined. ENT: Nose without bleeding or purulent drainage. NECK: Trachea midline. Supple, nontender. No palpable thyroid enlargement or nodularity. CARDIOVASCULAR: Regular rate and rhythm without murmurs, gallops, or rubs. Tachycardic. No JVD. RESPIRATORY/CHEST: Symmetric, unlabored respirations. Scattered rhonchi GASTROINTESTINAL: Abdomen soft, non-tender, nondistended. No hepato-splenomegaly , or palpable masses. No guarding. Bowel sounds present. GENITOURINARY: Without palpable bladder distension. Gordon catheter in place. MUSCULOSKELETAL: Extremities without clubbing, cyanosis, or edema. No joint tenderness or effusion noted. No calf tenderness. No mottling or clubbing. LYMPHATICS: No palpable cervical or supraclavicular adenopathy. NEUROLOGICAL: I get no response to touch, voice, or painful stimuli PSYCHIATRIC: Unable to assess due to clinical condition . Diagnostic Tests Laboratory Laboratory Tests Test 10/06/17 19:44 10/06/17 19:51 10/06/17 20:08 10/06/17 20:45 White Blood Count 20.6 TH/MM3 (4.0-11.0) Red Blood Count 5.35 MIL/MM3 (4.50-5.90) Hemoglobin 15.5 GM/DL (13.0-17.0) Hematocrit 51.5 % (39.0-51.0) Mean Corpuscular Volume 96.3 FL (80.0-100.0) Mean Corpuscular Hemoglobin 28.9 PG (27.0-34.0) Mean Corpuscular Hemoglobin Concent 30.0 % (32.0-36.0) Red Cell Distribution Width 16.4 % (11.6-17.2) Platelet Count 182 TH/MM3 (150-450) Mean Platelet Volume 11.7 FL (7.0-11.0) CBC Comment AUTO DIFF Differential Total Cells Counted 100 Neutrophils % (Manual) 57 % (16-70) Band Neutrophils % 10 % (0-6) Lymphocytes % 26 % (9-44) Monocytes % 6 % (0-8) Neutrophils # (Manual) 14.0 TH/MM3 (1.8-7.7) Metamyelocytes 1 % (0-1) Differential Comment FINAL DIFF MANUAL Platelet Estimate NORMAL (NORMAL) Platelet Morphology Comment ENLARGED (NORMAL) Blood Urea Nitrogen 141 MG/DL (7-18) Creatinine 7.83 MG/DL (0.60-1.30) Random Glucose 156 MG/DL (74-106) Total Protein 7.0 GM/DL (6.4-8.2) Albumin 2.4 GM/DL (3.4-5.0) Calcium Level 9.2 MG/DL (8.5-10.1) Alkaline Phosphatase 89 U/L (45-117) Aspartate Amino Transf (AST/SGOT) 1559 U/L (15-37) Alanine Aminotransferase (ALT/SGPT) 698 U/L (12-78) Total Bilirubin 1.9 MG/DL (0.2-1.0) Sodium Level 182 MEQ/L (136-145) Potassium Level 4.5 MEQ/L (3.5-5.1) Chloride Level 137 MEQ/L (98-107) Carbon Dioxide Level 19.0 MEQ/L (21.0-32.0) Anion Gap 26 MEQ/L (5-15) Estimat Glomerular Filtration Rate 7 ML/MIN (>89) Troponin I 1.04 NG/ML (0.02-0.05) Lipase 170 U/L (73-393) Lactic Acid Level 13.8 mmol/L (0.4-2.0) Urine Color YELLOW (YELLW/STRAW) Urine Turbidity CLOUDY (CLEAR) Urine pH 6.0 (5.0-8.5) Urine Specific [place] 1.026 (1.002-1.035) Urine Protein 100 mg/dL (NEG-TRACE) Urine Glucose (UA) NEG mg/dL (NEG) Urine Ketones NEG mg/dL (NEG) Urine Occult Blood MOD (NEG) Urine Nitrite NEG (NEG) Urine Bilirubin NEG (NEG) Urine Urobilinogen LESS THAN 2.0 MG/DL (LESS Urine Leukocyte Esterase SMALL (NEG) Urine RBC 7 /hpf (0-3) Urine WBC 47 /hpf (0-5) Urine Amorphous Sediment MOD Urine Bacteria RARE /hpf (NONE) Urine Sperm FEW (NONE) Microscopic Urinalysis Comment CATH-CULTURE IND Blood Gas Puncture Site RT FEMORAL Blood Gas Patient Temperature 98.6 Blood Gas HCO3 15 mmol/L (22-26) Blood Gas Base Excess -11.2 mmol/L (-2-2) Blood Gas Oxygen Saturation 99 % (90-100) Arterial Blood pH 7.22 (7.380-7.420) Arterial Blood Partial Pressure CO2 38 mmHg (38-42) Arterial Blood Partial Pressure O2 474 mmHG (61-120) Arterial Blood Oxygen Content 19.4 Vol % (12.0-20.0) Arterial Blood Carboxyhemoglobin 0.1 % (0-4) Arterial Blood Methemoglobin 0.9 % (0-2) Blood Gas Hemoglobin 13.1 G/DL (12.0-16.0) Oxygen Delivery Device VENTILATOR Blood Gas Ventilator Setting Blood Gas Inspired Oxygen 100 % Test 10/06/17 21:45 10/07/17 01:25 10/07/17 02:13 10/07/17 04:15 Prothrombin Time 24.6 SEC (9.8-11.6) 25.2 SEC (9.8-11.6) Prothromb Time International Ratio 2.4 RATIO 2.5 RATIO Activated Partial Thromboplast Time 37.1 SEC (24.3-30.1) 50.2 SEC (24.3-30.1) Nasal Screen MRSA (PCR) MRSA NOT DETECTED (NOT Lactic Acid Level 8.9 mmol/L (0.4-2.0) 8.8 mmol/L (0.4-2.0) Troponin I 1.74 NG/ML (0.02-0.05) Test 10/07/17 07:58 10/07/17 09:46 10/07/17 12:50 10/07/17 13:35 Troponin I 1.28 NG/ML (0.02-0.05) 1.01 NG/ML (0.02-0.05) White Blood Count 16.5 TH/MM3 (4.0-11.0) Red Blood Count 4.64 MIL/MM3 (4.50-5.90) Hemoglobin 13.7 GM/DL (13.0-17.0) Hematocrit 47.2 % (39.0-51.0) Mean Corpuscular Volume 101.6 FL (80.0-100.0) Mean Corpuscular Hemoglobin 29.5 PG (27.0-34.0) Mean Corpuscular Hemoglobin Concent 29.1 % (32.0-36.0) Red Cell Distribution Width 14.3 % (11.6-17.2) Platelet Count 92 TH/MM3 (150-450) Mean Platelet Volume 10.4 FL (7.0-11.0) Neutrophils (%) (Auto) 89.0 % (16.0-70.0) Lymphocytes (%) (Auto) 7.3 % (9.0-44.0) Monocytes (%) (Auto) 2.1 % (0.0-8.0) Eosinophils (%) (Auto) 1.3 % (0.0-4.0) Basophils (%) (Auto) 0.3 % (0.0-2.0) Neutrophils # (Auto) 14.7 TH/MM3 (1.8-7.7) Lymphocytes # (Auto) 1.2 TH/MM3 (1.0-4.8) Monocytes # (Auto) 0.3 TH/MM3 (0-0.9) Eosinophils # (Auto) 0.2 TH/MM3 (0-0.4) Basophils # (Auto) 0.0 TH/MM3 (0-0.2) CBC Comment AUTO DIFF Differential Total Cells Counted 100 Neutrophils % (Manual) 61 % (16-70) Band Neutrophils % 31 % (0-6) Lymphocytes % 6 % (9-44) Monocytes % 2 % (0-8) Neutrophils # (Manual) 15.2 TH/MM3 (1.8-7.7) Nucleated Red Blood Cells 2 /100 WBC (0-0) Differential Comment FINAL DIFF MANUAL Platelet Estimate LOW (NORMAL) Platelet Morphology Comment ENLARGED (NORMAL) Ornelas-Marshfield Bodies PRESENT (NONE SEEN) Sodium Level 137 MEQ/L (136-145) 136 MEQ/L (136-145) Blood Urea Nitrogen 123 MG/DL (7-18) Creatinine 6.65 MG/DL (0.60-1.30) Random Glucose 1136 MG/DL (74-106) Total Protein 5.3 GM/DL (6.4-8.2) Albumin 2.0 GM/DL (3.4-5.0) Calcium Level 6.0 MG/DL (8.5-10.1) Phosphorus Level 6.2 MG/DL (2.5-4.9) Magnesium Level 2.6 MG/DL (1.5-2.5) Alkaline Phosphatase 114 U/L (45-117) Aspartate Amino Transf (AST/SGOT) 4419 U/L (15-37) Alanine Aminotransferase (ALT/SGPT) 1997 U/L (12-78) Total Bilirubin 4.0 MG/DL (0.2-1.0) Potassium Level 5.1 MEQ/L (3.5-5.1) Chloride Level 101 MEQ/L (98-107) Carbon Dioxide Level 15.0 MEQ/L (21.0-32.0) Anion Gap 21 MEQ/L (5-15) Estimat Glomerular Filtration Rate 8 ML/MIN (>89) Serum Osmolality 396 MOSM/KG (275-295) Protein Corrected Calcium 6.8 MG/DL (8.5-10.1) Lactic Acid Level 6.3 mmol/L (0.4-2.0) Urine Eosinophils NONE SEEN /HPF (NONE SEEN) Urine Osmolality 416 MOSM/KG (300-1300) Urine Random Creatinine 51.7 MG/DL Urine Random Sodium 24 MEQ/L Test 10/07/17 15:20 10/07/17 16:10 10/07/17 17:15 10/07/17 18:05 Random Glucose 873 MG/DL (74-106) 840 MG/DL (74-106) 797 MG/DL (74-106) 757 MG/DL (74-106) Test 10/07/17 19:18 10/07/17 23:50 10/08/17 04:05 3/19/18 06:18 Random Glucose 687 MG/DL (74-106) 263 MG/DL (74-106) Sodium Level 146 MEQ/L (136-145) 148 MEQ/L (136-145) Lactic Acid Level 3.5 mmol/L (0.4-2.0) 3.1 mmol/L (0.4-2.0) Troponin I 0.95 NG/ML (0.02-0.05) 0.89 NG/ML (0.02-0.05) White Blood Count 19.5 TH/MM3 (4.0-11.0) Red Blood Count 4.41 MIL/MM3 (4.50-5.90) Hemoglobin 12.9 GM/DL (13.0-17.0) Hematocrit 39.0 % (39.0-51.0) Mean Corpuscular Volume 88.3 FL (80.0-100.0) Mean Corpuscular Hemoglobin 29.3 PG (27.0-34.0) Mean Corpuscular Hemoglobin Concent 33.1 % (32.0-36.0) Red Cell Distribution Width 14.0 % (11.6-17.2) Platelet Count 58 TH/MM3 (150-450) Mean Platelet Volume 10.3 FL (7.0-11.0) CBC Comment AUTO DIFF Differential Total Cells Counted 100 Neutrophils % (Manual) 65 % (16-70) Band Neutrophils % 21 % (0-6) Lymphocytes % 12 % (9-44) Monocytes % 2 % (0-8) Neutrophils # (Manual) 16.8 TH/MM3 (1.8-7.7) Nucleated Red Blood Cells 2 /100 WBC (0-0) Differential Comment FINAL DIFF MANUAL Platelet Estimate LOW (NORMAL) Platelet Morphology Comment NORMAL (NORMAL) Red Cell Morphology Comment NORMAL (NORMAL) Prothrombin Time 22.0 SEC (9.8-11.6) Prothromb Time International Ratio 2.2 RATIO Activated Partial Thromboplast Time 41.7 SEC (24.3-30.1) Fibrinogen 232 mg/dL (227-377) Blood Urea Nitrogen 123 MG/DL (7-18) Creatinine 6.47 MG/DL (0.60-1.30) Total Protein 4.9 GM/DL (6.4-8.2) Albumin 1.7 GM/DL (3.4-5.0) Calcium Level 6.0 MG/DL (8.5-10.1) Phosphorus Level 3.5 MG/DL (2.5-4.9) Magnesium Level 2.0 MG/DL (1.5-2.5) Alkaline Phosphatase 88 U/L (45-117) Aspartate Amino Transf (AST/SGOT) 1277 U/L (15-37) Alanine Aminotransferase (ALT/SGPT) 1344 U/L (12-78) Total Bilirubin 2.1 MG/DL (0.2-1.0) Potassium Level 4.1 MEQ/L (3.5-5.1) Chloride Level 116 MEQ/L (98-107) Carbon Dioxide Level 15.4 MEQ/L (21.0-32.0) Anion Gap 17 MEQ/L (5-15) Estimat Glomerular Filtration Rate 9 ML/MIN (>89) Protein Corrected Calcium 7.0 MG/DL (8.5-10.1) Ammonia 32 MCMOL/L (11-32) Total Creatine Kinase 4493 U/L (39-308) Creatine Kinase MB 50.0 NG/ML (0.5-3.6) Creatine Kinase MB % 1.1 % (0.0-4.0) Triglycerides Level 108 MG/DL (42-150) Cholesterol Level 76 MG/DL (120-200) LDL Cholesterol 44 MG/DL (0-99) HDL Cholesterol 10.1 MG/DL (40.0-60.0) Cholesterol/HDL Ratio 7.52 RATIO Amylase Level 69 U/L (25-115) Lipase 248 U/L (73-393) Thyroid Stimulating Hormone 3rd Gen 0.564 uIU/ML (0.358-3.740) Random Cortisol 39.6 MCG/DL Valproic Acid (Depakene) Level 6 MCG/ML (50-100) Hepatitis A IgM Antibody NONREACTIVE (NONREACTIVE) Hepatitis B Surface Antigen NONREACTIVE (NONREACTIVE) Hepatitis B Core IgM Antibody NONREACTIVE (NONREACTIVE) Hepatitis C IgG Antibody NONREACTIVE (NONREACTIVE) Blood Gas Puncture Site ART LINE Blood Gas Patient Temperature 98.6 Blood Gas HCO3 14 mmol/L (22-26) Blood Gas Base Excess -11.8 mmol/L (-2-2) Blood Gas Oxygen Saturation 97 % (90-100) Arterial Blood pH 7.28 (7.380-7.420) Arterial Blood Partial Pressure CO2 30 mmHg (38-42) Arterial Blood Partial Pressure O2 121 mmHg (61-120) Arterial Blood Oxygen Content 17.5 Vol % (12.0-20.0) Arterial Blood Carboxyhemoglobin 0.3 % (0-4) Arterial Blood Methemoglobin 1.4 % (0-2) Blood Gas Hemoglobin 12.8 G/DL (12.0-16.0) Oxygen Delivery Device VENT Blood Gas Ventilator Setting SEE COMMENTS Result Diagram: 10/08/17 0405 10/08/17 0405 Microbiology Microbiology Date/Time Source Procedure Growth Status 10/06/17 19:40 Blood Peripheral Aerobic Blood Culture - Preliminary NO GROWTH IN 2 DAYS Resulted 10/06/17 19:40 Blood Peripheral Anaerobic Blood Culture - Preliminary NO GROWTH IN 2 DAYS Resulted 10/06/17 19:40 Blood Peripheral Aerobic Blood Culture - Preliminary NO GROWTH IN 2 DAYS Resulted 10/06/17 19:40 Blood Peripheral Anaerobic Blood Culture - Preliminary NO GROWTH IN 2 DAYS Resulted 10/06/17 20:08 Urine Clean Catch Urine Culture - Preliminary NO GROWTH IN 24 HOURS. Resulted Imaging Last Impressions Chest X-Ray 10/08/17 0600 Signed Impressions: Service Date/Time: Sunday, October 08, 2017 04:34 - CONCLUSION: Hazy non-consolidative infiltrates in the right emily-/infrahilar region. Manpreet Marquez MD Abdomen Ultrasound 10/07/17 0000 Signed Impressions: Service Date/Time: Saturday, October 07, 2017 17:09 - CONCLUSION: 1. Gallbladder wall thickened up to 8 mm with pericholecystic fluid, echogenic sludge. However , no sonographic Crespo sign. 2. Mild right-sided hydronephrosis. 3. There are bilateral pleural effusions and trace free fluid in the abdomen. Joshua Mcgovern MD Head CT 10/06/17 1925 Signed Impressions: Service Date/Time: Saturday, October 07, 2017 00:52 - CONCLUSION: 1. Stable ventricular prominence. 2. 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 There is still some mass effect on the adjacent cerebral hemisphere, however. 3. Fluid density in the ethmoid air cells and nasopharynx bilaterally may be associated with the recent resuscitory efforts. Saud Bond MD Procedures Right subclavian line 10/06/17 Intubation 10/06/17 . Patient/Family Conference Present at Family Conference: Searching for any family . Issues Discussed: * Palliative care role, purpose, approach * Additional medical, psychosocial, and spiritual history * Patients general health, functional status, and cognitive changes in the months leading up to the current hospitalization * Patient/family understanding of the current medical problems * Patient/family understanding of prognosis * Patients goals of care as best understood from advance directives and/or conversations and/or values * Current medical treatment options and benefits/burdens of those options * Likely scenarios comparing ongoing aggressive care with a transition to comfort measures only * Questions answered to the best of my ability * Palliative care contact information provided Assessment and Plan Disease Oriented Problem List: (1) Cardiac arrest, resuscitation (2) Respiratory failure, mechanical ventilation (3) Likely anoxic brain injury (4) Renal failure (5) Pneumonia (6) End-stage Alzheimer's dementia (7) History of CVA (8) History of depression Symptom Scale: (1) Dyspnea (2) Encephalopathy Pertinent Non-Medical Issues Psychosocial: No family known so far; lives at an [facility] Spiritual: No information available Legal: The patient lacks capacity for decision-making, and he will not regain that capacity. Although the patient has a DCF worker Amber Mckinney functioning as a guardian, she apparently has declined to initiate DNR status or make other medical decisions. We are now actively engaged in a search for any relatives... Ethical issues impacting care: Actively engaged in search for family and a decision maker . Important Contacts DCF guardian Amber Mckinney [phone] . Prognosis This patient is terminal and continues to be appropriate for hospice. . Code Status: Full Code Plan * FULL CODE by default, as there is no decision-maker identified * This patient has been a hospice patient recently up until the time of the cardiac arrest, and he has been declining and actively dying at the [facility] in recent days while under [facility] hospice care; with his underlying end-stage dementia, he certainly is appropriate for a transition to comfort measures and hospice services when a decision maker can be identified. * DECISION-MAKING: We are searching diligently for any family/relatives. * I spoke with the [facility] staff and with [facility] Hospice staff. * SYMPTOMS: The patient is unresponsive off of sedation. I have no additional medication recommendations at this time. * GOALS: To be determined when a decision maker is identified. * Accurint search and report requested. * Palliative Care will continue to follow the patient during this hospitalization. . Time Spent Total Floor Time (mins): 88 Face to Face Time (mins): 15 >50% Counseling/Coord of Care: Yes Thank you for the opportunity to participate in the care of Mr. Rajput. Attestation To help prompt me to consider important information that might be impacting today's encounter and assessment, information from prior notes written by myself or my colleagues may have been "brought forward" into today's note. My signature on this note, however, is an attestation that I personally performed the exam, history, and/or decision-making noted today, and, unless otherwise indicated, the interactions with patient, family, and staff as well as the review of records all occurred today. I also attest that the listed assessment and stated plan reflect my best clinical judgment today based on the combination of historical information, prior notes, and today's exam/ interactions. When time spent is documented, it refers only to time spent today by the signer, or if indicated, combined time spent today by collaborating physician/nurse practitioner. Binta Cool MD Oct 08, 2017 12:47
[2017-10-08] MEDS: VASOPRESSIN INJ 40 UNITS in DEXTROSE 5% IN WATER 100ML INJ 98 ML IV SCH ×2 (13:33)
--- NOTE | 2017-10-08 19:55 | ECHRPT ---
Indication: cardiomyopathy CONCLUSIONS Normal left ventricular size. The left ventricular systolic function is normal with an estimated ejection fraction of 55% Douhi-jw-[id number] mitral valve regurgitation. There is mild tricuspid valve regurgitation. There is estimated mild pulmonary hypertension present (range 40-50 mmHg). BP: / HR: Rhythm: MEASUREMENTS (Male / Female) Normal Values Technical Quality:Very technically difficult study 2D ECHO LV Diastolic Diameter PLAX 3.9 cm 4.2 - 5.9 / 3.9 - 5.3 cm LV Systolic Diameter PLAX 2.9 cm IVS Diastolic Thickness 0.7 cm 0.6 - 1.0 / 0.6 - 0.9 cm LVPW Diastolic Thickness 1.0 cm 0.6 - 1.0 / 0.6 - 0.9 cm LV Relative Wall Thickness 0.4 RV Internal Dim ED PLAX 1.7 cm Aortic Root Diameter 2.2 cm LA Systolic Diameter LX 2.4 cm 3.0 - 4.0 / 2.7 - 3.8 cm LV Ejection Fraction MOD 4C 55.6 % LV Ejection Fraction 4C AL 57.5 % DOPPLER Mitral E Point Velocity 34.1 cm/s Mitral A Point Velocity 50.8 cm/s Mitral E to A Ratio 0.7 LV E' Lateral Velocity 6.0 cm/s Mitral E to LV E' Lateral Ratio 5.6 LV E' Septal Velocity 6.3 cm/s Mitral E to LV E' Septal Ratio 5.4 TR Peak Velocity 276.0 cm/s TR Peak Gradient 30.5 mmHg Right Atrial Pressure 10.0 mmHg Pulmonary Artery Systolic Pressu 40.5 mmHg Right Ventricular Systolic Press 40.5 mmHg FINDINGS LEFT VENTRICLE Normal left ventricular size. The left ventricular systolic function is normal with an estimated ejection fraction of 55% RIGHT VENTRICLE Normal right ventricular size and systolic function. LEFT ATRIUM The left atrial size is normal. RIGHT ATRIUM The right atrial size is normal. ATRIAL SEPTUM Normal atrial septal thickness without atrial level shunting by limited color doppler interrogation. AORTA The aortic root and proximal ascending aorta are normal in size on limited imaging. MITRAL VALVE Structurally normal mitral valve. [id number] mitral valve regurgitation. AORTIC VALVE The aortic valve is not well visualized. No aortic valve regurgitation. No aortic valve stenosis. TRICUSPID VALVE Structurally normal tricuspid valve. There is mild tricuspid valve regurgitation. There is estimated mild pulmonary hypertension present (range 40-50 mmHg). PULMONARY VALVE No pulmonary valve regurgitation or stenosis. VESSELS The inferior vena cava is normal in size. PERICARDIUM No pericardial effusion. Eduar Ponce MD, FACC (Electronically Signed) Final Date:08 October 2017 19:54
[2017-10-08] MEDS: SODIUM BICARBONATE 8.4% INJ 100 MEQ in WATER STERILE FOR INJ 900 ML IV SCH (21:19)
[2017-10-08] MEDS ORDERED: SODIUM CHLOR 0.45% 1000 ML INJ 1,000 ML IV ONE ×2 (22:00)
[2017-10-09] VITALS (20 sets, daily range): BP systolic 108–136; BP diastolic 51–64; PULSE 99–115; RESP 14–22; TEMP 98–100.3; O2SAT 98–100
[2017-10-09] MEDS: RESP: ALBUTEROL 2.5 MG/IPRATROPIUM 0.5 MG NEB (SCH) INH ×4 (00:06→12:29)
[2017-10-09] MEDS: PIPERACIL-TAZO 2.25 GM PREMIX 50 ML IV SCH ×2 (01:21→08:21)
[2017-10-09] MEDS: INSULIN NovoLIN REGULAR SUPPLEMENTAL SCALE SQ SCH ×3 (04:00→08:21)
[2017-10-09] MEDS: CHLORHEXIDINE GLUCONATE 2 % 1 PACK (2 CLOTHS) TOP SCH (04:00)
[2017-10-09 04:14] LABS: BASOPHIL % 0.1 % (0.0-2.0); EOSINOPHIL # 0.1 TH/MM3 (0-0.4); EOSINOPHIL % 0.4 % (0.0-4.0); HEMATOCRIT 26.8 % (39.0-51.0); HEMOGLOBIN 9.2 GM/DL (13.0-17.0); LYMPH % 6.3 % (9.0-44.0); LYMPHOCYTE # 1.1 TH/MM3 (1.0-4.8); MEAN CORPUSCULAR HEMOGLOBIN 29.6 PG (27.0-34.0); MEAN CORPUSCULAR HGB CONC 34.4 % (32.0-36.0); MEAN PLATELET VOLUME 10.8 FL (7.0-11.0); MONO % 5.6 % (0.0-8.0); NEUT % 87.6 % (16.0-70.0); PLATELET COUNT 50 TH/MM3 (150-450); RED BLOOD COUNT 3.11 MIL/MM3 (4.50-5.90); RED CELL DISTRIBUTION WIDTH 14.5 % (11.6-17.2); WHITE BLOOD COUNT 18.3 TH/MM3 (4.0-11.0)
[2017-10-09 04:18] LABS: INTERNATIONAL NORMALIZED RATIO 1.5 RATIO; PROTHROMBIN TIME - PATIENT 15.2 SEC (9.8-11.6)
[2017-10-09 04:43] LABS: ALBUMIN 1.4 GM/DL (3.4-5.0); BICARBONATE 19.5 MEQ/L (21.0-32.0); CALCIUM 5.9 MG/DL (8.5-10.1); CREATININE 6.93 MG/DL (0.60-1.30); TOTAL BILIRUBIN ADULT 1.8 MG/DL (0.2-1.0); TOTAL PROTEIN 4.1 GM/DL (6.4-8.2)
[2017-10-09 04:58] LABS: CALCIUM-PROTEIN CORRECTED 7.3 MG/DL (8.5-10.1)
--- NOTE | 2017-10-09 05:02 | RADRPT ---
EXAM DATE/TIME: 10/09/2017 03:03 [place] COMPARISON: No previous studies available for comparison. INDICATIONS : MRI clearance. MEDICAL HISTORY : None. SURGICAL HISTORY : None. ENCOUNTER: Subsequent ACUITY: 3 days PAIN SCORE: 0/10 LOCATION: Bilateral ABDOMEN FINDINGS: The visualized lower lungs are clear. Gastric tube tip and side-port project within the stomach. No dilated loops of small and large bowel. Gordon catheter in place. No dilated loops of small or larg e bowel. No metallic density seen in the abdomen or pelvis. CONCLUSION: No contraindication to MRI seen. Manpreet Marquez MD on October 09, 2017 at 5:00 Board Certified Radiologist. This report was verified electronically.
[2017-10-09] MEDS: SODIUM BICARBONATE 8.4% INJ 100 MEQ in WATER STERILE FOR INJ 900 ML IV SCH (06:33)
[2017-10-09] MEDS: VASOPRESSIN INJ 40 UNITS in DEXTROSE 5% IN WATER 100ML INJ 98 ML IV SCH ×2 (06:35)
--- NOTE | 2017-10-09 07:02 | MG ---
cc: Agusto Antoine MD ELECTROENCEPHALOGRAM RECORD NUMBER: [id number]. DESCRIPTION: This is a 67-year-old, history of cardiac arrest. The patient apparently intubated, no sedation. Almost flat line type of appearance occurring throughout the recording, 7 microvolts, 70 hertz. Questionable rare isolated frontal delta activity, which could be from artifact as well. No change with tactile stimuli application. Single lead EKG showing what appears to be sinus rhythm, although periods of some artifact. Increased myogenic artifact at 2 microvolts. INTERPRETATION: Severe encephalopathy with flat line type of appearance throughout most of the recording, suggestive of severe cortical injury. Clinical correlation. MD SYLVIA Willett/ANGELA , 08:51 PM , 09:29 PM
--- NOTE | 2017-10-09 08:00 | HHI.CCPN ---
Subjective Remarks/Hospital Course 67-year-old unfortunate gentleman who is a resident of a shelter due to advanced Alzheimer dementia, psychosis, depressions and anxiety presents status post cardiac arrest. The patient has no family relatives in his decision-maker is Amber Mckinney, [facility] goodwill representative for the patient. Per report in chart documentation he was last seen normal 5 minutes prior the vent at the shelter when he was suddenly found unresponsive. On EMS arrival the CPR was in progress by the staff. The patient was intubated and regain spontaneous circulation shortly after. Subjective 10/07: Afebrile. Unresponsive on the ventilator. Tolerating tube feeds at goal. No bowel movement. Pupils minimally responsive with upward gaze. There is no withdrawal to pain. 10/08 Patient remains intubated, unresponsive on no sedation. On Levophed 15 mics , Vasopressin 0.05 mics, insulin drip 6u/hr. 10/09 No events overnight. Intubated and unresponsive. Off Levophed and Vasopressin. Remains on Bicarb drip. For MRI brain today. Off Insulin drip and on no sedation. Objective Vital Signs Date Time Temp Pulse Resp B/P (MAP) Pulse Ox O2 Delivery O2 Flow Rate FiO2 10/09/17 06:35 104 135/63 10/09/17 04:00 30 10/09/17 04:00 98.9 17 99 Intake and Output 10/09/17 10/09/17 10/10/17 08:00 16:00 00:00 Intake Total 2317 ml Output Total 280.0 ml Balance 2037.0 ml Result Diagram: 10/09/17 0335 10/09/17 0335 Other Results Laboratory Tests Test 10/08/17 20:10 10/09/17 01:25 10/09/17 03:35 10/09/17 06:25 Sodium Level 148 MEQ/L 145 MEQ/L 145 MEQ/L Lactic Acid Level 4.6 mmol/L 4.8 mmol/L 5.1 mmol/L White Blood Count 18.3 TH/MM3 Red Blood Count 3.11 MIL/MM3 Hemoglobin 9.2 GM/DL Hematocrit 26.8 % Mean Corpuscular Volume 86.0 FL Mean Corpuscular Hemoglobin 29.6 PG Mean Corpuscular Hemoglobin Concent 34.4 % Red Cell Distribution Width 14.5 % Platelet Count 50 TH/MM3 Mean Platelet Volume 10.8 FL Neutrophils (%) (Auto) 87.6 % Lymphocytes (%) (Auto) 6.3 % Monocytes (%) (Auto) 5.6 % Eosinophils (%) (Auto) 0.4 % Basophils (%) (Auto) 0.1 % Neutrophils # (Auto) 16.0 TH/MM3 Lymphocytes # (Auto) 1.1 TH/MM3 Monocytes # (Auto) 1.0 TH/MM3 Eosinophils # (Auto) 0.1 TH/MM3 Basophils # (Auto) 0.0 TH/MM3 CBC Comment AUTO DIFF Differential Comment AUTO DIFF CONFIRMED Platelet Estimate LOW Platelet Morphology Comment NORMAL Prothrombin Time 15.2 SEC Prothromb Time International Ratio 1.5 RATIO Blood Urea Nitrogen 129 MG/DL Creatinine 6.93 MG/DL Random Glucose 139 MG/DL Total Protein 4.1 GM/DL Albumin 1.4 GM/DL Calcium Level 5.9 MG/DL Alkaline Phosphatase 93 U/L Aspartate Amino Transf (AST/SGOT) 669 U/L Alanine Aminotransferase (ALT/SGPT) 852 U/L Total Bilirubin 1.8 MG/DL Potassium Level 4.6 MEQ/L Chloride Level 107 MEQ/L Carbon Dioxide Level 19.5 MEQ/L Anion Gap 19 MEQ/L Estimat Glomerular Filtration Rate 8 ML/MIN Protein Corrected Calcium 7.3 MG/DL Random Vancomycin Level 21.0 COMMENT Imaging Last Impressions Abdomen X-Ray 10/09/17 0000 Signed Impressions: Service Date/Time: Monday, October 09, 2017 03:03 - CONCLUSION: No contraindication to MRI seen. Manpreet Marquez MD Chest X-Ray 10/08/17 0600 Signed Impressions: Service Date/Time: Sunday, October 08, 2017 04:34 - CONCLUSION: Hazy non-consolidative infiltrates in the right jeison-/infrahilar region. Manpreet Marquez MD Abdomen Ultrasound 10/07/17 0000 Signed Impressions: Service Date/Time: Saturday, October 07, 2017 17:09 - CONCLUSION: 1. Gallbladder wall thickened up to 8 mm with pericholecystic fluid, echogenic sludge. However , no sonographic Crespo sign. 2. Mild right-sided hydronephrosis. 3. There are bilateral pleural effusions and trace free fluid in the abdomen. Joshua Mcgovern MD Head CT 10/06/171924 Signed Impressions: Service Date/Time: Saturday, October 07, 2017 00:52 - CONCLUSION: 1. Stable ventricular prominence. 2. 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 There is still some mass effect on the adjacent cerebral hemisphere, however. 3. Fluid density in the ethmoid air cells and nasopharynx bilaterally may be associated with the recent resuscitory efforts. Saud Bond MD Objective Remarks GENERAL: 67-year-old male currently orotracheally intubated SKIN: Warm and dry. No rash HEAD: Normocephalic. EYES: Pupils are round 3 mm bilaterally with upward gaze. + scleral icterus with conjunctival hemorrhage and scleral edema. NECK: No JVD or thyromegaly or lymphadenopathy. No carotid bruits. CARDIOVASCULAR: Regular rate and rhythm. S1, S2 no S4. Without murmurs, gallops, or rubs. RESPIRATORY: Breath sounds equal bilaterally. No accessory muscle use. GASTROINTESTINAL: Abdomen soft, non-tender, nondistended. Bowel sounds are not appreciated MUSCULOSKELETAL: No significant peripheral edema. Cyanosis of toes noted NEURO EXAM: Patient does not withdraw to pain in bilateral upper and lower extremity. Pupils are very minimally reactive but extremely sluggish. No gag or cough. 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 Currently on levetiracetam 500 mg by tube twice daily for seizure therapy CT brain revealed right cerebral hygroma 5 mm. EEG yesterday showed severe encephalopathy with almost flat line appearance suggestive of severe cortical injury Neuro is following- Dr. Joe, for MRI brain today CV: OHCA Elevated troponin Severe shock likely cardiogenic Lactic acidosis Off pressors monitor HR and BP keep MAP>65mmHg Echo showed EF 55% Patient wasn't placed on targeted temperature monitoring by overnight customer success advocate secondary to severe end-stage dementia and currently out of window to initiate therapy at the present time Resp: Acute respiratory failure PRVC 15/600/1.1/12/19 Ventilator bundle Albuterol/ipratropium aerosols every 4 hours with albuterol aerosols every 2 hours as needed dyspnea Check ABG GI: Elevated transaminases/bilirubin Hypoalbuminemia Likely secondary to shock liver/hypoperfusion OGT to LIWS Resume tube feeds - Nepro with goal rate 45 cc an hour, add Reglan 5mg IV Q8 for high residulas, continue with bowel regimens. Monitor LFT's(trending down), Hep profile negative Famotidine for GI prophylaxis Docusate sodium/senna 1 tablet twice daily for bowel regimen, Senna and Colace Avoid hepatotoxic medication Endo: SSI ( medium scale) with accuchecks Q4hr TSH:0.56 Renal: Acute kidney injury Rhabdo Monitor renal function, I/O's, avoid nephrotoxins Continue SW+2amps bicarb @100ml/hr, given additional 2L NS overnight for elevated lactic acid level Lactic acid rages 4-5, 13.8 on arrival. US abdomen: Mild right sided hydronephrosis Renal is following- Dr. Kirkland Cr: 6.93 from 6.47, UOP: Heme: Elevated coags likely secondary to shock liver Anemia, thrombocytopenia History of left-sided basal cell carcinoma/melanoma left chest/arm Monitor CBC,coags INR 1.5 today from 2.2, Fibrinogen level 232 yesterday. ID: UTI Leukocytosis Aspiration pneumonia Continue Zosyn, Vanco. Monitor for signs of infections ( Fever, WBC) check sputum cx Pertinent cultures 10/06 - blood cultures 2 -NGTD 10/06 - urine culture -No growth MSK: PT evaluate and treat Access -Utilize right subclavian CVL day #1 placed 10/07 Prophylaxis -GI -famotidine -DVT -SCDs/heparin subcutaneous held with elevated INR/PTT.and thrombocytopenia Palliative care is following Very poor prognosis given multiorgan failure and severe hypoxic/Anoxic encephalopathy Addendum: Palliative care spoke to decision maker and they elected to proceed with withdrawal life support and transition to comfort care. Critical Care: The total critical care time was 30 minutes. Time to perform other separately billable procedures was not included in the critical care time. Freedom Sutton MD Oct 09, 2017 08:00
[2017-10-09] MEDS: CHLORHEXIDINE 0.12% (ORAL KIT) 15 ML CUP MT SCH (08:20)
[2017-10-09] MEDS: ARTIFICIAL TEARS OPTH SOLN 15 ML BTL EACH EYE SCH ×2 (08:21→13:00)
[2017-10-09] MEDS: SODIUM CHLORIDE 0.9% FLUSH 10 ML FLUSH IV FLUSH SCH (08:21)
[2017-10-09] MEDS: SENNOSIDES SYRUP 8.8 MG/5 ML CUP PO SCH (08:22)
[2017-10-09] MEDS: DOCUSATE SODIUM 100 MG/10 ML UDC PO SCH (08:22)
[2017-10-09] MEDS: levETIRAcetam 500 MG/5 ML UDC NG SCH (08:22)
[2017-10-09] MEDS ORDERED: METOCLOPRAMIDE HCL 10 MG/2 ML VIAL IV PUSH SCH (08:30)
[2017-10-09] MEDS: FAMOTIDINE 20 MG/2 ML VIAL IV PUSH SCH (08:30)
[2017-10-09] MEDS: DOCUSATE SODIUM 50 MG/SENNA 8.6 MG TAB PO SCH (09:00)
[2017-10-09] MEDS ORDERED: CALCIUM GLUCONATE INJ 1 GM in SODIUM CHLORIDE 0.9% INJ 100 ML IV ONE (09:00)
[2017-10-09] MEDS ORDERED: SENNOSIDES SYRUP 8.8 MG/5 ML CUP PO SCH (09:00)
--- NOTE | 2017-10-09 09:01 | HHI.PR ---
Review/Management Daily Summary 10/09 comatose eeg seen continue supportive care try to obtain mri brain s contrast prognosis extremely poor Subjective Active Medications Current Medications Medications (Trade) Dose Ordered Sig/Zaida Route Start Time Stop Time Status Last Admin (NS Flush) 2 ml UNSCH PRN IV FLUSH 10/06/17 21:00 (NS Flush) 2 ml BID IV FLUSH 10/06/17 21:00 10/09/17 08:21 (Tears Naturale Opth Soln) 1 drop TID EACH EYE 10/07/17 09:00 10/09/17 08:21 (Zofran Inj) 4 mg Q6H PRN IV PUSH 10/06/17 21:00 (Heparin Inj) 5,000 units Q8HR SQ 10/06/17 22:00 Future Hold 10/07/17 06:04 Miscellaneous Information 1 Q361D XX 10/06/17 21:00 10/07/17 00:00 (Chlorhexidine 2% Cloth) 3 pack Taper DAILY@04 TOP 10/07/17 04:00 10/03/18 03:59 10/09/17 04:00 (Chlorhexidine 2% Cloth) 3 pack UNSCH PRN TOP 10/06/17 21:00 (Emily-Colace) 1 tab BID PO 10/06/17 21:00 10/07/17 19:41 (Milk Of Magnesia Liq) 30 ml Q12H PRN PO 10/06/17 21:00 (Senokot) 17.2 mg Q12H PRN PO 10/06/17 21:00 (Dulcolax Supp) 10 mg DAILY PRN RECTAL 10/06/17 21:00 (Lactulose Liq) 30 ml DAILY PRN PO 10/06/17 21:00 Midazolam HCl 100 ml @ 2 mls/hr TITRATE PRN IV 10/06/17 21:00 (Pepcid Inj) 10 mg Q12HR IV PUSH 10/07/17 09:00 10/08/17 20:18 Vasopressin 40 units/Dextrose 100 ml @ 6 mls/hr [id number] IV 10/07/17 07:29 10/09/17 06:35 (Albuterol Neb) 2.5 mg Q2HR NEB PRN NEB 10/07/17 07:45 (Duoneb Neb) 1 ampule Q4HR NEB INH 10/07/17 08:00 10/09/17 08:09 (Peridex 0.12% Liq) 15 ml BID@08,20 MT 10/07/17 08:00 10/09/17 08:20 Propofol 100 ml @ 1.953 mls/ hr TITRATE PRN IV 10/07/17 07:45 Fentanyl Citrate 250 ml @ 5 mls/hr TITRATE PRN IV 10/07/17 07:45 (Keppra Liq) 500 mg Q12HR NG 10/07/17 09:00 10/09/17 08:22 Piperacillin Sod/ Tazobactam Sod 50 ml @ 100 mls/hr Q8H IV 10/07/17 09:00 10/09/17 08:21 Norepinephrine Bitartrate 4 mg/ Sodium Chloride 250 ml @ 7.5 mls/hr TITRATE PRN IV 10/07/17 12:45 10/08/17 17:12 (Brethine Inj) 1 mg UNSCH PRN SQ 10/07/17 12:45 Epinephrine HCl 2 mg/Dextrose 252 ml @ 22.68 mls/ hr TITRATE PRN IV 10/07/17 12:45 (D50w (Vial) Inj) 50 ml UNSCH PRN IV PUSH 10/08/17 07:30 (Glucagon Inj) 1 mg UNSCH PRN OTHER 10/08/17 07:30 (NovoLIN R SUPPLEMENTAL SCALE) 1 Q4H SQ 10/08/17 08:00 10/09/17 08:21 Pharmacy Profile Note 0 ml @ 0 mls/hr UNSCH OTHER 10/08/17 08:15 (Senna Liq) 8.8 mg DAILY PO 10/08/17 09:00 10/09/17 08:22 (Colace Liq) 100 mg Q12HR PO 10/08/17 09:00 10/09/17 08:22 Sodium Bicarbonate 100 meq/Sterile Water 1,000 ml @ 100 mls/hr Q10H IV 10/08/17 20:00 10/09/17 06:33 Calcium Gluconate 1 gm/Sodium Chloride 110 ml @ 110 mls/hr ONCE ONCE IV 10/09/17 09:00 10/09/17 09:59 (Reglan Inj) 5 mg Q8HR IV PUSH 3/20/18 08:30 Allergies Allergies Coded Allergies No Known Allergies (Unverified Allergy, Unknown, 10/07/17) Exam I&O / VS Vital Signs Date Time Temp Pulse Resp B/P (MAP) Pulse Ox O2 Delivery O2 Flow Rate FiO2 10/09/17 08:17 30 10/09/17 08:17 99 30 10/09/17 08:04 99 30 10/09/17 06:35 104 135/63 10/09/17 06:00 104 10/09/17 04:00 30 10/09/17 04:00 98.9 102 17 136/60 (85) 99 10/09/17 04:00 102 10/09/17 03:37 100 30 10/09/17 02:00 110 10/09/17 00:07 99 30 10/09/17 00:00 100.3 115 18 128/60 (82) 99 10/09/17 00:00 30 10/09/17 00:00 115 10/08/17 22:00 121 10/08/17 20:51 98 30 10/08/17 20:00 122 10/08/17 20:00 30 10/08/17 20:00 99.6 122 15 122/58 (79) 95 10/08/17 18:00 119 10/08/17 17:12 117 144/62 10/08/17 16:00 116 10/08/17 16:00 99.1 116 4 140/60 (86) 99 10/08/17 15:49 100 30 10/08/17 14:00 116 10/08/17 13:33 116 151/60 10/08/17 12:00 113 10/08/17 12:00 97.8 113 7 158/64 (95) 100 10/08/17 11:44 100 30 10/08/17 10:00 120 10/08/17 09:49 122 152/68 Objective Micro and Labs Laboratory Tests Test 10/08/17 20:10 10/09/17 01:25 10/09/17 03:35 10/09/17 06:25 Sodium Level 148 145 145 Lactic Acid Level 4.6 4.8 5.1 White Blood Count 18.3 Red Blood Count 3.11 Hemoglobin 9.2 Hematocrit 26.8 Mean Corpuscular Volume 86.0 Mean Corpuscular Hemoglobin 29.6 Mean Corpuscular Hemoglobin Concent 34.4 Red Cell Distribution Width 14.5 Platelet Count 50 Mean Platelet Volume 10.8 Neutrophils (%) (Auto) 87.6 Lymphocytes (%) (Auto) 6.3 Monocytes (%) (Auto) 5.6 Eosinophils (%) (Auto) 0.4 Basophils (%) (Auto) 0.1 Neutrophils # (Auto) 16.0 Lymphocytes # (Auto) 1.1 Monocytes # (Auto) 1.0 Eosinophils # (Auto) 0.1 Basophils # (Auto) 0.0 CBC Comment AUTO DIFF Differential Comment AUTO DIFF CONFIRMED Platelet Estimate LOW Platelet Morphology Comment NORMAL Prothrombin Time 15.2 Prothromb Time International Ratio 1.5 Blood Urea Nitrogen 129 Creatinine 6.93 Random Glucose 139 Total Protein 4.1 Albumin 1.4 Calcium Level 5.9 Alkaline Phosphatase 93 Aspartate Amino Transf (AST/SGOT) 669 Alanine Aminotransferase (ALT/SGPT) 852 Total Bilirubin 1.8 Potassium Level 4.6 Chloride Level 107 Carbon Dioxide Level 19.5 Anion Gap 19 Estimat Glomerular Filtration Rate 8 Protein Corrected Calcium 7.3 Random Vancomycin Level 21.0 Date/Time Source Procedure Growth Status 10/06/17 19:40 Blood Peripheral Aerobic Blood Culture - Preliminary NO GROWTH IN 2 DAYS Resulted 10/06/17 19:40 Blood Peripheral Anaerobic Blood Culture - Preliminary NO GROWTH IN 2 DAYS Resulted 10/06/17 20:08 Urine Clean Catch Urine Culture - Final NO GROWTH IN 48 HOURS. Complete Jess Joe MD Oct 09, 2017 09:01
--- NOTE | 2017-10-09 09:49 | HHI.HCSW ---
Private Banker Visit Significant Family/Friend Attempting to identify legal proxy decision maker for Mr. Rajput. [employer] requested through case management. Google search produced possible relative Giana Rajput, age 89: * [phone]: left voicemail * [phone]: disconnected * [phone]: disconnected * [phone]: not in service * [phone]: disconnected . Alison Phelps VEHICLE INSPECTOR, LABEL PINKER Oct 09, 2017 09:49
[2017-10-09] MEDS ORDERED: CHLOROTHIAZIDE SOD 500 MG VIAL IV SCH (10:15)
--- NOTE | 2017-10-09 11:42 | HHI.NPPN ---
Subjective Renal Failure: Acute Interval History He remains unresponsive on the vent. His toes are discolored. Renal function is worse. (Barbie Whaley) Review of Systems General General Remarks unable to obtain. (Barbie Whaley) Objective Data Data Vital Signs Date Time Temp Pulse Resp B/P (MAP) Pulse Ox O2 Delivery O2 Flow Rate FiO2 10/09/17 11:31 100 100 10/09/17 08:17 30 10/09/17 08:17 99 30 10/09/17 08:04 99 30 10/09/17 06:35 104 135/63 10/09/17 06:00 104 10/09/17 04:00 30 10/09/17 04:00 98.9 102 17 136/60 (85) 99 10/09/17 04:00 102 10/09/17 03:37 100 30 10/09/17 02:00 110 10/09/17 00:07 99 30 10/09/17 00:00 100.3 115 18 128/60 (82) 99 10/09/17 00:00 30 10/09/17 00:00 115 10/08/17 22:00 121 10/08/17 20:51 98 30 10/08/17 20:00 122 10/08/17 20:00 30 10/08/17 20:00 99.6 122 15 122/58 (79) 95 10/08/17 18:00 119 10/08/17 17:12 117 144/62 10/08/17 16:00 116 10/08/17 16:00 99.1 116 4 140/60 (86) 99 10/08/17 15:49 100 30 10/08/17 14:00 116 10/08/17 13:33 116 151/60 10/08/17 12:00 113 10/08/17 12:00 97.8 113 7 158/64 (95) 100 10/08/17 11:44 100 30 (Barbie Whaley) -: 10/09/17 0335 10/09/17 0335 Imaging Last 72 hours Impressions Abdomen X-Ray 10/09/17 0000 Signed Impressions: Service Date/Time: Monday, October 09, 2017 03:03 - CONCLUSION: No contraindication to MRI seen. Manpreet Marquez MD Chest X-Ray 10/08/17 0600 Signed Impressions: Service Date/Time: Sunday, October 08, 2017 04:34 - CONCLUSION: Hazy non-consolidative infiltrates in the right jeison-/infrahilar region. Manpreet Marquez MD Chest X-Ray 10/07/17 0000 Signed Impressions: Service Date/Time: Saturday, October 07, 2017 00:24 - CONCLUSION: 1. Right subclavian central venous catheter with the tip projecting over the central venous system. No pneumothorax. 2. Faint airspace disease developing in the right lower lobe. Saud Bond MD Abdomen Ultrasound 10/07/17 0000 Signed Impressions: Service Date/Time: Saturday, October 07, 2017 17:09 - CONCLUSION: 1. Gallbladder wall thickened up to 8 mm with pericholecystic fluid, echogenic sludge. However , no sonographic Crespo sign. 2. Mild right-sided hydronephrosis. 3. There are bilateral pleural effusions and trace free fluid in the abdomen. Joshua Mcgovern MD Head CT 10/06/171924 Signed Impressions: Service Date/Time: Saturday, October 07, 2017 00:52 - CONCLUSION: 1. Stable ventricular prominence. 2. 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 There is still some mass effect on the adjacent cerebral hemisphere, however. 3. Fluid density in the ethmoid air cells and nasopharynx bilaterally may be associated with the recent resuscitory efforts. Saud Bond MD Chest X-Ray 10/06/171924 Signed Impressions: Service Date/Time: Friday, October 06, 2017 20:00 - CONCLUSION: 1. Endotracheal tube in good position. Joshua Mcgovern MD Tubes & Lines: Gordon Drip Comment bicarb gtt (Barbie Whaley) Physical Exam General Appearance: Well Developed (Barbie Whaley) Eyes Eye Exam: Pupils Equal (Barbie WhaleyP) Throat Throat Exam: Oral Mucosa Roe & Moist (Barbie WhaleyP) Pulmonary Resp Exam: Breath Sounds Equal, Decreased Bases Resp Remarks vented lung sounds (Barbie Whaley) Cardiology CV Exam: Regular, Normal Sinus Rhythm, Good Perfusion (Barbie Whaley) Gastrointestinal/Abdomen GI Exam: Soft, Non-Tender, Bowel Sounds Present (Barbie Whaley) Musculoskeletal MS Exam: Normal Tone (Barbie Whaley) Integumentary Skin Exam: Warm, Dry (Barbie Whaley) Extremeties Extremities Exam: No Edema, Pedal Pulses Palpable Extremeties Remarks discolored toes bilaterally (Barbie Whaley) Neurologic Neuro Exam: Unresponsive, Sedated, Comatose (Barbie Whaley) Assessment/Plan Discussed Condition With: Patient Assessment Summary: MADAY/Acute Renal Failure, Acute Tubular Necrosis Problem List: (1) Acute renal failure ICD Codes: N17.9 - Acute kidney failure, unspecified Plan: Normal renal function at baseline MADAY most likely ATN from hypoperfusion due to cardiac arrest. He is off pressors, avoid hypotension Renal function slightly worse He is oliguric Imaging does suggest mild hydronephrosis, monitor for now Given the full picture including EEG results, prior (poor) functioning capacity , starting HD on this patient is not going to change the outcome. We will continue to follow along. Reduce bicarb gtt to 50 cc/hr Start Diuril Repeat labs, renally dose (2) Cardiac arrest ICD Codes: I46.9 - Cardiac arrest, cause unspecified Status: Acute Plan: Etiology uncertain Continue supportive care (3) Lactic acidosis ICD Codes: E87.2 - Acidosis Plan: Due to cardiac arrest (4) Diabetes ICD Codes: E11.9 - Type 2 diabetes mellitus without complications Plan: HHNK on arrival Maintain glucose 140-180 mg/dL. (5) Sepsis ICD Codes: A41.9 - Sepsis, unspecified organism Plan: On Vancomycin and Zosyn, Continue supportive care (Barbie Whaley) Plan patient was seen and examined in the morning. Renal function is worse, oliguric. Suggest withdrawal of care, discussed with RN. Palliative care saw the patient, it appears that he will be transitioned to comfort care with withdrawal of life support. (Carlos Kirkland MD) Barbie Whaley Oct 09, 2017 11:42 Carlos Kirkland MD Oct 09, 2017 20:39
--- NOTE | 2017-10-09 13:12 | RADRPT ---
EXAM DATE/TIME: 10/09/2017 11:02 [facility] COMPARISON: CT BRAIN W/O CONTRAST, October 07, 2017, 0:52. INDICATIONS : Neurologic deficit. MEDICAL HISTORY : CLEARED BY RAD SURGICAL HISTORY : CLEARED BY RAD ENCOUNTER: Initial ACUITY: 3 day PAIN SCORE: Nonresponsive. LOCATION: Head TECHNIQUE: Multiplanar, multisequence MRI of the brain was performed without contrast. FINDINGS: CEREBRUM: The ventricles are prominent for age. No evidence of midline shift, mass lesion, hemorrhage or acute infarction. There is a small right sided chronic subdural hygroma.. The pituitary gland and suprase llar cistern are normal in configuration. WHITE MATTER: No significant signal abnormalities are seen in the white matter. POSTERIOR FOSSA: The posterior fossa is grossly abnormal. There appears to be diffuse nonspecific swelling involving b oth cerebellar hemispheres. There is abnormal signal homogeneously throughout both cerebellar hemisph eres. The fourth ventricle is extremely small in size and the sylvian aqueduct is nonvisualized. The midbrain appears to be normal in signal. However, the diffuse enlargement of both cerebellar hemisphe res appears to be causing some compression especially along the posterior aspect of the midbrain best seen on the sagittal images. DIFFUSION IMAGING: There is homogeneous increased signal throughout both cerebellar hemispheres on the diffusion weighte d images suggestive of restricted diffusion. There also may be some restricted diffusion along the ce rebral cortex bilaterally near the vertex. EXTRACRANIAL: The visualized portions of the orbits are unremarkable. There is chronic sinus disease in both maxill melanie sinuses. 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 The findings were called by telephone and given to the nurse taking care of this patient in the unit. CONCLUSION: 1. Grossly abnormal appearance of the cerebellar hemispheres bilaterally. There is diffuse increased signal throughout both cerebellar hemispheres on the T2 weighted images. There is also some restricte d diffusion involving both cerebellar hemispheres suggesting ischemic changes. The fourth ventricle i s extremely small in size and I believe is being compressed as well as the sylvian aqueduct which is nonvisualized. There is also compression along the posterior aspect of the midbrain by the cerebellar hemispheres. These findings suggest diffuse nonspecific swelling of both cerebellar hemispheres poss ibly as a result of diffuse brain anoxia. This needs to be correlate with patient's medical history. There also appears to be some restricted diffusion involving the cerebral cortex bilaterally along th e cerebral vertex indicating ischemiac changes. 2. There is diffuse hydrocephalus involving the third and lateral ventricles. 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 Stevenson Bragg MD on October 09, 2017 at 12:45 Board Certified Radiologist. This report was verified electronically.
--- NOTE | 2017-10-09 13:53 | HHI.HCPN ---
Reason for visit a. To assist with evaluation and management of symptoms including: Encephalopathy, dyspnea b. To assist medical decision maker(s) with: better understanding of current medical conditions; weighing benefits/burdens of medical treatment options; making medical treatment decisions. . Subjective/Interval History INTERVAL NOTE: The patient remains unresponsive, mechanically ventilated off sedation. His toes and fingertips are dark and cold now. MRI completed today consistent with anoxic injury and with obstructive hydrocephalus. Healthcare proxy decision-maker identified today, see below. The [employer] search, as well as Google and Facebook searches, did not provide any living relatives... . Family/friend interactions Bony Pickering is now identified is the healthcare proxy decision-maker. I spoke with him directly, and he confirms that he grew up with the patient in [place] many years ago, has stayed in contact over the years, and lived with him near the patient here in [place] for years. He reports prior discussions with the patient with the patient indicated that he would not want to be maintained artificially on life support machines when the prognosis was grim. Mr. Pickering clearly knows the patient well, is quite satisfied that he knows what the patient's goals and wishes would be in this situation, and he wants to proceed with a transition to comfort measures and withdrawal of life support. . Advance Directives Living Will: Never completed Health Care Surrogate: Never completed Durable Power of [employer] Fe[employer]: Never completed Advance Directive Specifics Significant change in goals: Transitioning to comfort measures, withdrawal of life support to allow natural . Objective Vital Signs Date Time Temp Pulse Resp B/P (MAP) Pulse Ox O2 Delivery O2 Flow Rate FiO2 10/09/17 12:30 99 30 10/09/17 12:00 109 10/09/17 12:00 30 10/09/17 11:31 100 100 10/09/17 10:00 110 10/09/17 10:00 30 10/09/17 08:17 30 10/09/17 08:17 99 30 10/09/17 08:15 30 10/09/17 08:04 99 30 10/09/17 08:00 30 10/09/17 08:00 110 10/09/17 08:00 98.6 110 18 108/57 (74) 100 10/09/17 06:35 104 135/63 10/09/17 06:00 104 10/09/17 04:00 30 10/09/17 04:00 98.9 102 17 136/60 (85) 99 10/09/17 04:00 102 10/09/17 03:37 100 30 10/09/17 02:00 110 10/09/17 00:07 99 30 10/09/17 00:00 100.3 115 18 128/60 (82) 99 10/09/17 00:00 30 10/09/17 00:00 115 10/08/17 22:00 121 10/08/17 20:51 98 30 10/08/17 20:00 122 10/08/17 20:00 30 10/08/17 20:00 99.6 122 15 122/58 (79) 95 10/08/17 18:00 119 10/08/17 17:12 117 144/62 10/08/17 16:00 116 10/08/17 16:00 99.1 116 4 140/60 (86) 99 10/08/17 15:49 100 30 10/08/17 14:00 116 Intake & Output 10/09/17 10/09/17 07:00 19:00 Intake Total 3774 ml Output Total 280.0 ml Balance 3494.0 ml IV Total 3583 ml Tube Feeding 131 ml Other 60 ml Output Urine Total 200 ml Tube Feeding Residual Discard 80.0 ml Physical Exam CONSTITUTIONAL/GENERAL: This is an elderly appearing, unresponsive patient, in no apparent distress. TUBES/LINES/DRAINS: ET tube, Gordon, right subclavian, peripheral IV, SCDs SKIN: No jaundice, rashes, or lesions. Ecchymoses on upper extremities. No wounds seen anteriorly. Toes and fingertips are nearly black, cool CARDIOVASCULAR: Regular rate and rhythm without murmurs, gallops, or rubs. Tachycardic. No JVD. RESPIRATORY/CHEST: Symmetric, unlabored respirations. Scattered rhonchi GASTROINTESTINAL: Abdomen soft, non-tender, nondistended. No hepato-splenomegaly , or palpable masses. No guarding. Bowel sounds present. GENITOURINARY: Without palpable bladder distension. Gordon catheter in place. MUSCULOSKELETAL: Black/cool toes and fingertips NEUROLOGICAL: I get no response to touch, voice, or painful stimuli PSYCHIATRIC: Unable to assess due to clinical condition . Diagnostic Tests Laboratory Laboratory Tests Test 10/06/17:44 10/06/17 19:51 10/06/17 20:08 10/06/17 20:45 White Blood Count 20.6 TH/MM3 (4.0-11.0) Red Blood Count 5.35 MIL/MM3 (4.50-5.90) Hemoglobin 15.5 GM/DL (13.0-17.0) Hematocrit 51.5 % (39.0-51.0) Mean Corpuscular Volume 96.3 FL (80.0-100.0) Mean Corpuscular Hemoglobin 28.9 PG (27.0-34.0) Mean Corpuscular Hemoglobin Concent 30.0 % (32.0-36.0) Red Cell Distribution Width 16.4 % (11.6-17.2) Platelet Count 182 TH/MM3 (150-450) Mean Platelet Volume 11.7 FL (7.0-11.0) CBC Comment AUTO DIFF Differential Total Cells Counted 100 Neutrophils % (Manual) 57 % (16-70) Band Neutrophils % 10 % (0-6) Lymphocytes % 26 % (9-44) Monocytes % 6 % (0-8) Neutrophils # (Manual) 14.0 TH/MM3 (1.8-7.7) Metamyelocytes 1 % (0-1) Differential Comment FINAL DIFF MANUAL Platelet Estimate NORMAL (NORMAL) Platelet Morphology Comment ENLARGED (NORMAL) Blood Urea Nitrogen 141 MG/DL (7-18) Creatinine 7.83 MG/DL (0.60-1.30) Random Glucose 156 MG/DL (74-106) Total Protein 7.0 GM/DL (6.4-8.2) Albumin 2.4 GM/DL (3.4-5.0) Calcium Level 9.2 MG/DL (8.5-10.1) Alkaline Phosphatase 89 U/L (45-117) Aspartate Amino Transf (AST/SGOT) 1559 U/L (15-37) Alanine Aminotransferase (ALT/SGPT) 698 U/L (12-78) Total Bilirubin 1.9 MG/DL (0.2-1.0) Sodium Level 182 MEQ/L (136-145) Potassium Level 4.5 MEQ/L (3.5-5.1) Chloride Level 137 MEQ/L (98-107) Carbon Dioxide Level 19.0 MEQ/L (21.0-32.0) Anion Gap 26 MEQ/L (5-15) Estimat Glomerular Filtration Rate 7 ML/MIN (>89) Troponin I 1.04 NG/ML (0.02-0.05) Lipase 170 U/L (73-393) Lactic Acid Level 13.8 mmol/L (0.4-2.0) Urine Color YELLOW (YELLW/STRAW) Urine Turbidity CLOUDY (CLEAR) Urine pH 6.0 (5.0-8.5) Urine Specific [place] 1.026 (1.002-1.035) Urine Protein 100 mg/dL (NEG-TRACE) Urine Glucose (UA) NEG mg/dL (NEG) Urine Ketones NEG mg/dL (NEG) Urine Occult Blood MOD (NEG) Urine Nitrite NEG (NEG) Urine Bilirubin NEG (NEG) Urine Urobilinogen LESS THAN 2.0 MG/DL (LESS Urine Leukocyte Esterase SMALL (NEG) Urine RBC 7 /hpf (0-3) Urine WBC 47 /hpf (0-5) Urine Amorphous Sediment MOD Urine Bacteria RARE /hpf (NONE) Urine Sperm FEW (NONE) Microscopic Urinalysis Comment CATH-CULTURE IND Blood Gas Puncture Site RT FEMORAL Blood Gas Patient Temperature 98.6 Blood Gas HCO3 15 mmol/L (22-26) Blood Gas Base Excess -11.2 mmol/L (-2-2) Blood Gas Oxygen Saturation 99 % (90-100) Arterial Blood pH 7.22 (7.380-7.420) Arterial Blood Partial Pressure CO2 38 mmHg (38-42) Arterial Blood Partial Pressure O2 474 mmHG (61-120) Arterial Blood Oxygen Content 19.4 Vol % (12.0-20.0) Arterial Blood Carboxyhemoglobin 0.1 % (0-4) Arterial Blood Methemoglobin 0.9 % (0-2) Blood Gas Hemoglobin 13.1 G/DL (12.0-16.0) Oxygen Delivery Device VENTILATOR Blood Gas Ventilator Setting Blood Gas Inspired Oxygen 100 % Test 10/06/17 21:45 10/07/17 01:25 10/07/17 02:13 10/07/17 04:15 Prothrombin Time 24.6 SEC (9.8-11.6) 25.2 SEC (9.8-11.6) Prothromb Time International Ratio 2.4 RATIO 2.5 RATIO Activated Partial Thromboplast Time 37.1 SEC (24.3-30.1) 50.2 SEC (24.3-30.1) Nasal Screen MRSA (PCR) MRSA NOT DETECTED (NOT Lactic Acid Level 8.9 mmol/L (0.4-2.0) 8.8 mmol/L (0.4-2.0) Troponin I 1.74 NG/ML (0.02-0.05) Test 10/07/17 07:58 10/07/17 09:46 10/07/17 12:50 10/07/17 13:35 Troponin I 1.28 NG/ML (0.02-0.05) 1.01 NG/ML (0.02-0.05) White Blood Count 16.5 TH/MM3 (4.0-11.0) Red Blood Count 4.64 MIL/MM3 (4.50-5.90) Hemoglobin 13.7 GM/DL (13.0-17.0) Hematocrit 47.2 % (39.0-51.0) Mean Corpuscular Volume 101.6 FL (80.0-100.0) Mean Corpuscular Hemoglobin 29.5 PG (27.0-34.0) Mean Corpuscular Hemoglobin Concent 29.1 % (32.0-36.0) Red Cell Distribution Width 14.3 % (11.6-17.2) Platelet Count 92 TH/MM3 (150-450) Mean Platelet Volume 10.4 FL (7.0-11.0) Neutrophils (%) (Auto) 89.0 % (16.0-70.0) Lymphocytes (%) (Auto) 7.3 % (9.0-44.0) Monocytes (%) (Auto) 2.1 % (0.0-8.0) Eosinophils (%) (Auto) 1.3 % (0.0-4.0) Basophils (%) (Auto) 0.3 % (0.0-2.0) Neutrophils # (Auto) 14.7 TH/MM3 (1.8-7.7) Lymphocytes # (Auto) 1.2 TH/MM3 (1.0-4.8) Monocytes # (Auto) 0.3 TH/MM3 (0-0.9) Eosinophils # (Auto) 0.2 TH/MM3 (0-0.4) Basophils # (Auto) 0.0 TH/MM3 (0-0.2) CBC Comment AUTO DIFF Differential Total Cells Counted 100 Neutrophils % (Manual) 61 % (16-70) Band Neutrophils % 31 % (0-6) Lymphocytes % 6 % (9-44) Monocytes % 2 % (0-8) Neutrophils # (Manual) 15.2 TH/MM3 (1.8-7.7) Nucleated Red Blood Cells 2 /100 WBC (0-0) Differential Comment FINAL DIFF MANUAL Platelet Estimate LOW (NORMAL) Platelet Morphology Comment ENLARGED (NORMAL) [place] Bodies PRESENT (NONE SEEN) Sodium Level 137 MEQ/L (136-145) 136 MEQ/L (136-145) Blood Urea Nitrogen 123 MG/DL (7-18) Creatinine 6.65 MG/DL (0.60-1.30) Random Glucose 1136 MG/DL (74-106) Total Protein 5.3 GM/DL (6.4-8.2) Albumin 2.0 GM/DL (3.4-5.0) Calcium Level 6.0 MG/DL (8.5-10.1) Phosphorus Level 6.2 MG/DL (2.5-4.9) Magnesium Level 2.6 MG/DL (1.5-2.5) Alkaline Phosphatase 114 U/L (45-117) Aspartate Amino Transf (AST/SGOT) 4419 U/L (15-37) Alanine Aminotransferase (ALT/SGPT) 1997 U/L (12-78) Total Bilirubin 4.0 MG/DL (0.2-1.0) Potassium Level 5.1 MEQ/L (3.5-5.1) Chloride Level 101 MEQ/L (98-107) Carbon Dioxide Level 15.0 MEQ/L (21.0-32.0) Anion Gap 21 MEQ/L (5-15) Estimat Glomerular Filtration Rate 8 ML/MIN (>89) Serum Osmolality 396 MOSM/KG (275-295) Protein Corrected Calcium 6.8 MG/DL (8.5-10.1) Lactic Acid Level 6.3 mmol/L (0.4-2.0) Urine Eosinophils NONE SEEN /HPF (NONE SEEN) Urine Osmolality 416 MOSM/KG (300-1300) Urine Random Creatinine 51.7 MG/DL Urine Random Sodium 24 MEQ/L Test 10/07/17 15:20 10/07/17 16:10 10/07/17 17:15 10/07/17 18:05 Random Glucose 873 MG/DL (74-106) 840 MG/DL (74-106) 797 MG/DL (74-106) 757 MG/DL (74-106) Test 10/07/17 19:18 10/07/17 23:50 10/08/17 04:05 10/08/17 06:18 Random Glucose 687 MG/DL (74-106) 263 MG/DL (74-106) Sodium Level 146 MEQ/L (136-145) 148 MEQ/L (136-145) Lactic Acid Level 3.5 mmol/L (0.4-2.0) 3.1 mmol/L (0.4-2.0) Troponin I 0.95 NG/ML (0.02-0.05) 0.89 NG/ML (0.02-0.05) White Blood Count 19.5 TH/MM3 (4.0-11.0) Red Blood Count 4.41 MIL/MM3 (4.50-5.90) Hemoglobin 12.9 GM/DL (13.0-17.0) Hematocrit 39.0 % (39.0-51.0) Mean Corpuscular Volume 88.3 FL (80.0-100.0) Mean Corpuscular Hemoglobin 29.3 PG (27.0-34.0) Mean Corpuscular Hemoglobin Concent 33.1 % (32.0-36.0) Red Cell Distribution Width 14.0 % (11.6-17.2) Platelet Count 58 TH/MM3 (150-450) Mean Platelet Volume 10.3 FL (7.0-11.0) CBC Comment AUTO DIFF Differential Total Cells Counted 100 Neutrophils % (Manual) 65 % (16-70) Band Neutrophils % 21 % (0-6) Lymphocytes % 12 % (9-44) Monocytes % 2 % (0-8) Neutrophils # (Manual) 16.8 TH/MM3 (1.8-7.7) Nucleated Red Blood Cells 2 /100 WBC (0-0) Differential Comment FINAL DIFF MANUAL Platelet Estimate LOW (NORMAL) Platelet Morphology Comment NORMAL (NORMAL) Red Cell Morphology Comment NORMAL (NORMAL) Prothrombin Time 22.0 SEC (9.8-11.6) Prothromb Time International Ratio 2.2 RATIO Activated Partial Thromboplast Time 41.7 SEC (24.3-30.1) Fibrinogen 232 mg/dL (227-377) Blood Urea Nitrogen 123 MG/DL (7-18) Creatinine 6.47 MG/DL (0.60-1.30) Total Protein 4.9 GM/DL (6.4-8.2) Albumin 1.7 GM/DL (3.4-5.0) Calcium Level 6.0 MG/DL (8.5-10.1) Phosphorus Level 3.5 MG/DL (2.5-4.9) Magnesium Level 2.0 MG/DL (1.5-2.5) Alkaline Phosphatase 88 U/L (45-117) Aspartate Amino Transf (AST/SGOT) 1277 U/L (15-37) Alanine Aminotransferase (ALT/SGPT) 1344 U/L (12-78) Total Bilirubin 2.1 MG/DL (0.2-1.0) Potassium Level 4.1 MEQ/L (3.5-5.1) Chloride Level 116 MEQ/L (98-107) Carbon Dioxide Level 15.4 MEQ/L (21.0-32.0) Anion Gap 17 MEQ/L (5-15) Estimat Glomerular Filtration Rate 9 ML/MIN (>89) Protein Corrected Calcium 7.0 MG/DL (8.5-10.1) Ammonia 32 MCMOL/L (11-32) Total Creatine Kinase 4493 U/L (39-308) Creatine Kinase MB 50.0 NG/ML (0.5-3.6) Creatine Kinase MB % 1.1 % (0.0-4.0) Triglycerides Level 108 MG/DL (42-150) Cholesterol Level 76 MG/DL (120-200) LDL Cholesterol 44 MG/DL (0-99) HDL Cholesterol 10.1 MG/DL (40.0-60.0) Cholesterol/HDL Ratio 7.52 RATIO Amylase Level 69 U/L (25-115) Lipase 248 U/L (73-393) Thyroid Stimulating Hormone 3rd Gen 0.564 uIU/ML (0.358-3.740) Random Cortisol 39.6 MCG/DL Valproic Acid (Depakene) Level 6 MCG/ML (50-100) Hepatitis A IgM Antibody NONREACTIVE (NONREACTIVE) Hepatitis B Surface Antigen NONREACTIVE (NONREACTIVE) Hepatitis B Core IgM Antibody NONREACTIVE (NONREACTIVE) Hepatitis C IgG Antibody NONREACTIVE (NONREACTIVE) Blood Gas Puncture Site ART LINE Blood Gas Patient Temperature 98.6 Blood Gas HCO3 14 mmol/L (22-26) Blood Gas Base Excess -11.8 mmol/L (-2-2) Blood Gas Oxygen Saturation 97 % (90-100) Arterial Blood pH 7.28 (7.380-7.420) Arterial Blood Partial Pressure CO2 30 mmHg (38-42) Arterial Blood Partial Pressure O2 121 mmHg (61-120) Arterial Blood Oxygen Content 17.5 Vol % (12.0-20.0) Arterial Blood Carboxyhemoglobin 0.3 % (0-4) Arterial Blood Methemoglobin 1.4 % (0-2) Blood Gas Hemoglobin 12.8 G/DL (12.0-16.0) Oxygen Delivery Device VENT Blood Gas Ventilator Setting SEE COMMENTS Test 10/08/17 20:10 10/09/17 01:25 10/09/17 03:35 10/09/17 06:25 Sodium Level 148 MEQ/L (136-145) 145 MEQ/L (136-145) 145 MEQ/L (136-145) Lactic Acid Level 4.6 mmol/L (0.4-2.0) 4.8 mmol/L (0.4-2.0) 5.1 mmol/L (0.4-2.0) White Blood Count 18.3 TH/MM3 (4.0-11.0) Red Blood Count 3.11 MIL/MM3 (4.50-5.90) Hemoglobin 9.2 GM/DL (13.0-17.0) Hematocrit 26.8 % (39.0-51.0) Mean Corpuscular Volume 86.0 FL (80.0-100.0) Mean Corpuscular Hemoglobin 29.6 PG (27.0-34.0) Mean Corpuscular Hemoglobin Concent 34.4 % (32.0-36.0) Red Cell Distribution Width 14.5 % (11.6-17.2) Platelet Count 50 TH/MM3 (150-450) Mean Platelet Volume 10.8 FL (7.0-11.0) Neutrophils (%) (Auto) 87.6 % (16.0-70.0) Lymphocytes (%) (Auto) 6.3 % (9.0-44.0) Monocytes (%) (Auto) 5.6 % (0.0-8.0) Eosinophils (%) (Auto) 0.4 % (0.0-4.0) Basophils (%) (Auto) 0.1 % (0.0-2.0) Neutrophils # (Auto) 16.0 TH/MM3 (1.8-7.7) Lymphocytes # (Auto) 1.1 TH/MM3 (1.0-4.8) Monocytes # (Auto) 1.0 TH/MM3 (0-0.9) Eosinophils # (Auto) 0.1 TH/MM3 (0-0.4) Basophils # (Auto) 0.0 TH/MM3 (0-0.2) CBC Comment AUTO DIFF Differential Comment AUTO DIFF CONFIRMED Platelet Estimate LOW (NORMAL) Platelet Morphology Comment NORMAL (NORMAL) Prothrombin Time 15.2 SEC (9.8-11.6) Prothromb Time International Ratio 1.5 RATIO Blood Urea Nitrogen 129 MG/DL (7-18) Creatinine 6.93 MG/DL (0.60-1.30) Random Glucose 139 MG/DL (74-106) Total Protein 4.1 GM/DL (6.4-8.2) Albumin 1.4 GM/DL (3.4-5.0) Calcium Level 5.9 MG/DL (8.5-10.1) Alkaline Phosphatase 93 U/L (45-117) Aspartate Amino Transf (AST/SGOT) 669 U/L (15-37) Alanine Aminotransferase (ALT/SGPT) 852 U/L (12-78) Total Bilirubin 1.8 MG/DL (0.2-1.0) Potassium Level 4.6 MEQ/L (3.5-5.1) Chloride Level 107 MEQ/L (98-107) Carbon Dioxide Level 19.5 MEQ/L (21.0-32.0) Anion Gap 19 MEQ/L (5-15) Estimat Glomerular Filtration Rate 8 ML/MIN (>89) Protein Corrected Calcium 7.3 MG/DL (8.5-10.1) Random Vancomycin Level 21.0 COMMENT Test 10/09/17 09:09 10/09/17 10:16 Blood Gas Puncture Site ART LINE Blood Gas Patient Temperature 98.6 Blood Gas HCO3 19 mmol/L (22-26) Blood Gas Base Excess -5.1 mmol/L (-2-2) Blood Gas Oxygen Saturation 97 % (90-100) Arterial Blood pH 7.38 (7.380-7.420) Arterial Blood Partial Pressure CO2 33 mmHg (38-42) Arterial Blood Partial Pressure O2 148 mmHg (61-120) Arterial Blood Oxygen Content 12.1 Vol % (12.0-20.0) Arterial Blood Carboxyhemoglobin 0.6 % (0-4) Arterial Blood Methemoglobin 1.5 % (0-2) Blood Gas Hemoglobin 8.6 G/DL (12.0-16.0) Oxygen Delivery Device VENTILATOR Blood Gas Ventilator Setting CPAP/PS10/[id number] Blood Gas Inspired Oxygen 30 % 25-Hydroxy Vitamin D Total 35.5 ng/ML (30-100) Parathyroid Hormone (Intact) 422.6 PG/ML (12.4-76.8) Result Diagram: 10/09/17 0335 10/09/17 0335 Microbiology Microbiology Date/Time Source Procedure Growth Status 10/06/17 19:40 Blood Peripheral Aerobic Blood Culture - Preliminary NO GROWTH IN 3 DAYS Resulted 10/06/17 19:40 Blood Peripheral Anaerobic Blood Culture - Preliminary NO GROWTH IN 3 DAYS Resulted 10/06/17 19:40 Blood Peripheral Aerobic Blood Culture - Preliminary NO GROWTH IN 3 DAYS Resulted 10/06/17 19:40 Blood Peripheral Anaerobic Blood Culture - Preliminary NO GROWTH IN 3 DAYS Resulted 10/06/17 20:08 Urine Clean Catch Urine Culture - Final NO GROWTH IN 48 HOURS. Complete Imaging Last Impressions Brain MRI 10/09/17 0900 Signed Impressions: Service Date/Time: Monday, October 09, 2017 11:02 - CONCLUSION: 1. Grossly abnormal appearance of the cerebellar hemispheres bilaterally. There is diffuse increased signal throughout both cerebellar hemispheres on the T2 weighted images. There is also some restricted diffusion involving both cerebellar hemispheres suggesting ischemic changes. The fourth ventricle is extremely small in size and I believe is being compressed as well as the sylvian aqueduct which is nonvisualized. There is also compression along the posterior aspect of the midbrain by the cerebellar hemispheres. These findings suggest diffuse nonspecific swelling of both cerebellar hemispheres possibly as a result of diffuse brain anoxia. This needs to be correlate with patient's medical history. There also appears to be some restricted diffusion involving the cerebral cortex bilaterally along the cerebral vertex indicating ischemiac changes. 2. There is diffuse hydrocephalus involving the third and lateral ventricles. Given the compression of the fourth ventricle and sylvian aqueduct, I suspect this is obstructive hydrocephalus. Stevenson Bragg MD Abdomen X-Ray 10/09/17 0000 Signed Impressions: Service Date/Time: Monday, October 09, 2017 03:03 - CONCLUSION: No contraindication to MRI seen. Manpreet Marquez MD Chest X-Ray 10/08/17 0600 Signed Impressions: Service Date/Time: Sunday, October 08, 2017 04:34 - CONCLUSION: Hazy non-consolidative infiltrates in the right jeison-/infrahilar region. Manpreet Marquez MD Abdomen Ultrasound 10/07/17 0000 Signed Impressions: Service Date/Time: Saturday, October 07, 2017 17:09 - CONCLUSION: 1. Gallbladder wall thickened up to 8 mm with pericholecystic fluid, echogenic sludge. However , no sonographic Crespo sign. 2. Mild right-sided hydronephrosis. 3. There are bilateral pleural effusions and trace free fluid in the abdomen. Joshua cMgovern MD Head CT 10/06/17 192 Signed Impressions: Service Date/Time: Saturday, October 07, 2017 00:52 - CONCLUSION: 1. Stable ventricular prominence. 2. 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 There is still some mass effect on the adjacent cerebral hemisphere, however. 3. Fluid density in the ethmoid air cells and nasopharynx bilaterally may be associated with the recent resuscitory efforts. Saud Bond MD Procedures Right subclavian line 10/06/17 Intubation 10/06/17 . Assessment and Plan Disease Oriented Problem List: (1) Cardiac arrest, resuscitation (2) Respiratory failure, mechanical ventilation (3) Likely anoxic brain injury (4) Renal failure (5) Pneumonia (6) End-stage Alzheimer's dementia (7) History of CVA (8) History of depression Symptom Scale: (1) Dyspnea (2) Encephalopathy Pertinent Non-Medical Issues Psychosocial: No family known so far; lives at an [facility] Spiritual: No information available Legal: The patient lacks capacity for decision-making, and he will not regain that capacity. Although the patient has a DCF worker Amber Mckinney functioning as a guardian, she apparently has declined to initiate DNR status or make other medical decisions. We are now actively engaged in a search for any relatives... Ethical issues impacting care: Actively engaged in search for family and a decision maker . Important Contacts Healthcare proxy decision-maker: Bony Pickering [phone] [facility] women's garment fitter Amber Mckinney [phone] . Prognosis This patient is terminal and continues to be appropriate for hospice. . Code Status: No Code Plan * DO NOT RESUSCITATE, per request of healthcare proxy 10/09/17 * DECISION-MAKING: Bony Pickering is now identified is the healthcare proxy decision-maker. I spoke with him directly, and he confirms that he grew up with the patient in [place] many years ago, has stayed in contact over the years, and lived with him and near the patient here in [place] for years. He reports prior discussions with the patient when the patient indicated that he would not want to be maintained artificially on life support machines when the prognosis was grim. Mr. Pickering clearly knows the patient well, is quite satisfied that he knows what the patient's goals and wishes would be in this situation, and he wants to proceed with a transition to comfort measures and withdrawal of life support. * SYMPTOMS: The patient is unresponsive off of sedation. I have no additional medication recommendations at this time. * GOALS: Transition to comfort measures, withdrawal of life support * Palliative Care will continue to follow the patient during this hospitalization. . Time Spent Total Floor Time (mins): 44 Face to Face Time (mins): 13 >50% Counseling/Coord of Care: Yes (d/w Dr. Bran and with RN) Attestation To help prompt me to consider important information that might be impacting today's encounter and assessment, information from prior notes written by myself or my colleagues may have been "brought forward" into today's note. My signature on this note, however, is an attestation that I personally performed the exam, history, and/or decision-making noted today, and, unless otherwise indicated, the interactions with patient, family, and staff as well as the review of records all occurred today. I also attest that the listed assessment and stated plan reflect my best clinical judgment today based on the combination of historical information, prior notes, and today's exam/ interactions. When time spent is documented, it refers only to time spent today by the signer, or if indicated, combined time spent today by collaborating physician/nurse practitioner. Binta Cool MD Oct 09, 2017 13:53
[2017-10-09] MEDS ORDERED: HYDROmorphone HCL PF 2 MG/ML VIAL IV PUSH ONE ×2 (14:00→14:15)
[2017-10-09] MEDS ORDERED: LORazepam 2 MG/ML VIAL IV PUSH ONE ×2 (14:00→14:15)
[2017-10-09] MEDS ORDERED: HYOSCYAMINE 0.5 MG/ML AMP IV PUSH ONE (14:00)
[2017-10-09] MEDS ORDERED: HYDROmorphone HCL PF 2 MG/ML VIAL IV PUSH PRN ×2 (14:30)
[2017-10-09] MEDS ORDERED: LORazepam 2 MG/ML VIAL IV PUSH PRN ×3 (14:30)
[2017-10-09] MEDS ORDERED: HYOSCYAMINE 0.5 MG/ML AMP IV PUSH PRN (14:30)
[2017-10-09] MEDS ORDERED: FUROSEMIDE 20 MG/2 ML VIAL IV PUSH PRN (14:30)
[2017-10-09] MEDS ORDERED: HYDROmorphone HCL PF 2 MG/ML VIAL IV PUSH SCH (16:00)
[2017-10-09] MEDS ORDERED: LORazepam 2 MG/ML VIAL IV PUSH SCH (16:00)
== END 2017-10-09 23:10 | disposition expired | DRG 208 ==
LOC: NEPE 19:17 → NEDA 20:14 → HIME 10-07 01:05
PROVIDERS: ADMIT Internal Medicine Critical Care Medicine; ATTEND Internal Medicine Critical Care Medicine
PROC: 5A1945Z Respiratory Ventilation, 24-96 Consecutive Hours (ICD-10-PCS; 2017-10-06)
PROC: 02HV33Z Insertion of Infusion Device into Superior Vena Cava, Percutaneous Approach (ICD-10-PCS; principal; 2017-10-07)
PROC: 0T9B70Z Drainage of Bladder with Drainage Device, Via Natural or Artificial Opening (ICD-10-PCS; 2017-10-07)
DX: J96.01 Acute respiratory failure with hypoxia (principal); R57.0 Cardiogenic shock; N17.0 Acute kidney failure with tubular necrosis; K72.00 Acute and subacute hepatic failure without coma; J69.0 Pneumonitis due to inhalation of food and vomit; A41.9 Sepsis, unspecified organism; G93.1 Anoxic brain damage, not elsewhere classified; E87.0 Hyperosmolality and hypernatremia; E87.2 Acidosis; F02.81 Dementia in other diseases classified elsewhere, unspecified severity, with behavioral disturbance; N13.30 Unspecified hydronephrosis; R47.01 Aphasia; N39.0 Urinary tract infection, site not specified; G91.1 Obstructive hydrocephalus; R56.9 Unspecified convulsions; Z51.5 Encounter for palliative care; G30.9 Alzheimer's disease, unspecified; E11.9 Type 2 diabetes mellitus without complications; E86.0 Dehydration; D18.1 Lymphangioma, any site; F41.9 Anxiety disorder, unspecified; F32.9 Major depressive disorder, single episode, unspecified; R74.8 Abnormal levels of other serum enzymes; F13.90 Sedative, hypnotic, or anxiolytic use, unspecified, uncomplicated; D69.6 Thrombocytopenia, unspecified; D64.9 Anemia, unspecified; Z74.01 Bed confinement status; Z86.73 Personal history of transient ischemic attack (TIA), and cerebral infarction without residual deficits; Z85.820 Personal history of malignant melanoma of skin; Z79.899 Other long term (current) drug therapy
CPT/HCPCS: 36600; 36620; 70450; 70551; 71045; 74018; 76700; 80053; 80061; 80074; 80164; 80202; 81001; 82140; 82150; 82306; 82533; 82550; 82552; 82570; 82805; 82947; 82948; 83605; 83690; 83735; 83930; 83935; 83970; 84100; 84295; 84300; 84443; 84484; 85007; 85025; 85027; 85384; 85610; 85730; 86900; 86901; 86927; 87040; 87086; 87205; 87641; 93005; 93306; 94002; 94003; 94640; 94664; 95819; 96365; J0610; J1170; J1265; J1644; J1817; J1980; J2060; J2543; J2765; J3370; J7030; J7040; J7050; J7070